=== PATIENT | female | born 1940 | race Caucasian/White ===

== ENCOUNTER 2017-07-07 09:45 | Outpatient (RCR) | payer OTHER, SELFPAY ==
--- NOTE | 2017-06-10 10:36 | PT.OTN ---
Transition note: On June 09, 2017 our therapy services consisting of Speech, Occupational, and Physical Therapy transitioned from the [employer] electronic documentation system to a new [employer] electronic documentation system.?? All documentation prior to June 09 can be found under [employer] saved data. From June 09 forward all medical record documentation will be in [facility] 6.1.
--- NOTE | 2017-06-10 13:49 | PT.OIE ---
Past Surgical History History of laparoscopic LAP-BAND removal, gastric sleeve procedure done for weight loss, hiatal hernia repair 12/12/13, abdominal plasty 2004, h/o ovarian cyst, uterine fibroidectomy, hx of bowel obstruction with partial bowel removal Status post tubal ligation, Physical Therapy Initial Evaluation PT-OP-A Visit Information Start: 06/10/17 12:00 Freq: Status: Active Protocol: Activity Type Activity Date Activity User E-Sign Co-Sign Detail Recorded Client Recorded Date Recorded By Document 06/10/17 10:19 [facility] [email or web address] 06/10/17 13:48 [facility] 06/10/17 10:19 Out-Patient Physical Therapy Visit Information [Evaluation Information] -Evaluation Date 06/10/17 PT-OP-B Current Condition Start: 06/10/17 12:00 Freq: Status: Active Protocol: Activity Type Activity Date Activity User E-Sign Co-Sign Detail Recorded Client Recorded Date Recorded By Document 06/10/17 10:19 [facility] [email or web address] 06/10/17 13:48 [facility] 06/10/17 10:19 Current Condition [History of Current Condition] -Onset Date symptoms of pelvic pressure have worsened over time -Current Complaints c/o pressure on the bladder that mimics a UTI,pelvic organ prolapse -History of Current Condition THe patient began complaining of the feeling of frequent UTI's and pressure on her bladder. She saw Dr. Valenzuela and was started on estrogen therapy as well as educated on how constipation can contribulte to straining. She began taking Mirilax. This along with the estrogen have helped greatly. She is no longer having to strain with a bowel movement. Edna has a history of 3 vaginal deliveries, hx of a bowel obstruction sometime in the with partial bowel removal, hx of lab band surgery and removal, sleeve surgery 3 years ago. H /p uterine fibroidectomy and ovarian cysts. [Treatment Goals] -Patient/Caregiver Goals The patients goals include decreasing pelvic pressure , especially the pressure on her bladder and improving pelvic floor strength [Prior Functional Status] -Baseline Function- ADL's Independent -Baseline Function- Mobility Independent [Current Functional Impairments ( Reported)] -Functional Limitations- Other self care time is increased for bowel movements and Edna notes that her bowel movements are difficulty to control now with the miralax especially in the am PT-OP-C Subjective Start: 06/10/17 12:00 Freq: Status: Active Protocol: Activity Type Activity Date Activity User E-Sign Co-Sign Detail Recorded Client Recorded Date Recorded By Document 06/10/17 10:19 [facility] [email or web address] 06/10/17 13:48 [facility] 06/10/17 10:19 OP-PT Subjective [Patient Comments] -Patient Comments The patient is referred to PT with chief complaint of pelvic pressure due to pelvic organ prolapse. Edna reports her symptoms have improved with the estrogen and Miralax although now she will have loose stool that is difficult to control at times. She is working with her doesage to figure this out . PT-OP-Q Treatments Start: 06/10/17 12:00 Freq: Status: Active Protocol: Activity Type Activity Date Activity User E-Sign Co-Sign Detail Recorded Client Recorded Date Recorded By Document 06/10/17 10:19 [facility] [email or web address] 06/10/17 13:48 [facility] 06/10/17 10:19 Neuro Re-Education Treatment [Movement Re-Education] -Movement Re-education Activities EMG biofeedback with neuro re- education on facilitating all portions of the pelvic floor. Average contraction is 6.9 uv with max of 13.0 uv PT-OP-T Assessment and Plan Start: 06/10/17 12:00 Freq: Status: Active Protocol: Activity Type Activity Date Activity User E-Sign Co-Sign Detail Recorded Client Recorded Date Recorded By Document 06/10/17 10:19 [facility] [email or web address] 06/10/17 13:48 [facility] 06/10/17 10:19 Physical Therapy Assessment [Rehab Potential] -Rehabilitation Potential Excellent [Evaluation Complexity] -Number of Personal Factors/ 1-2 Comorbidities -Number of Body Systems Impaired 1-2 -Clinical Presentation at Evaluation Stable [Impairments] -Impairments Soft Tissue Mobility Strength Tone [Goals] Four -Impairment The patient lacks a home exercise program for her pelvic floor -Blueprint Developer Goal (LTG) The patient has been given a home exercise program and is able to correctly perform her home exercises -LTG Duration 6 Three -Impairment Complaints of pelvic heavyness and pressure mimicing a bladder infection -Blueprint Developer Goal (LTG) With pelvic floor strengthening Edna reports decreased complaints of pelvic pressure and heavyness -LTG Duration 8 weeks Two -Impairment decreased endurance of the pelvic floor -Short Term Goal (STG) Edna is able to sustain a pelvic floor contraction for 10 seconds in supine -STG Duration 5 weeks -Detention Goal (LTG) Edna is able to sustain a pelvic floor contraction for 10 seconds in standing -LTG Duration 8 weeks One -Impairment decreased strength of the levator ani -Short Term Goal (STG) Improve all parts of the Levator ani strength to 4/5 or better for improved support of the pelvic organs -STG Duration 6 weeks -Blueprint Developer Goal (LTG) Edna is able to sustain a pelvic floor contraction in standing and is able to properly recruit her pelvic floor prior to lifting a item off the floor -LTG Duration 8 weeks [Assessment Summary] -Assessment Edna presents to physical therapy with signs and symptoms of pelvic floor relaxation. She reports doing much better already with the estrogen therapy and using the miralax has helped decrese constipation. With pelvic floor examination Edna is able to facilitate all parts of the levator ani . She lacks endurance of the pelvic floor. Her left side and anterior pelvic floor are the weakest and treatment will focus on improved recruitment in these areas. Further hip strength testing still needs to be done and will be assessed in the next visit. Edna tolerated today 's treatment well and was given a home program to begin working on pelvic floor strengthening. Physical Therapy Plan [Frequency and Duration] -Frequency of Treatment 1x/Week -Duration of Treatment 8 weeks -Plan of Care Start Date 06/10/17 -Plan of Care End Date 08/05/17 [Therapeutic Interventions] -Therapeutic Interventions Home Exercise Program Manual Therapy Neuromuscular Re-education Patient/ Caregiver Education Self-Care/Home Management Therapeutic Exercises -Modalities Biofeedback Provider Signature Date
--- NOTE | 2017-06-16 11:42 | PT.OTN ---
Physical Therapy Treatment Note PT-OP-A Visit Information Start: 06/10/17 12:00 Freq: Status: Active Protocol: Activity Type Activity Date Activity User E-Sign Co-Sign Detail Recorded Client Recorded Date Recorded By Document 06/16/17 09:55 [facility] [email or web address] 06/16/17 11:40 [facility] 06/16/17 09:55 Out-Patient Physical Therapy Visit Information [Visit Information] -Visit Type Treatment Note -Visit Start Time 09:50 -Visit Stop Time 10:30 -Total Visit Minutes 40 -Visit Number 2 -Number of LAUNDRY OPERATOR WASH ROOM Visits 0 PT-OP-B Current Condition Start: 06/10/17 12:00 Freq: Status: Active Protocol: Activity Type Activity Date Activity User E-Sign Co-Sign Detail Recorded Client Recorded Date Recorded By Document 06/10/17 10:19 [facility] [email or web address] 06/10/17 13:48 [facility] 06/10/17 10:19 Current Condition [History of Current Condition] -Onset Date symptoms of pelvic pressure have worsened over time -Current Complaints c/o pressure on the bladder that mimics a UTI,pelvic organ prolapse -History of Current Condition THe patient began complaining of the feeling of frequent UTI's and pressure on her bladder. She saw Dr. Valenzuela and was started on estrogen therapy as well as educated on how constipation can contribulte to straining. She began taking Mirilax. This along with the estrogen have helped greatly. She is no longer having to strain with a bowel movement. Edna has a history of 3 vaginal deliveries, hx of a bowel obstruction sometime in the with partial bowel removal, hx of lab band surgery and removal, sleeve surgery 3 years ago. H /p uterine fibroidectomy and ovarian cysts. [Treatment Goals] -Patient/Caregiver Goals The patients goals include decreasing pelvic pressure , especially the pressure on her bladder and improving pelvic floor strength [Prior Functional Status] -Baseline Function- ADL's Independent -Baseline Function- Mobility Independent [Current Functional Impairments ( Reported)] -Functional Limitations- Other self care time is increased for bowel movements and Edna notes that her bowel movements are difficulty to control now with the miralax especially in the am PT-OP-C Subjective Start: 06/10/17 12:00 Freq: Status: Active Protocol: Activity Type Activity Date Activity User E-Sign Co-Sign Detail Recorded Client Recorded Date Recorded By Document 06/16/17 09:55 [facility] [email or web address] 06/16/17 11:40 [facility] 06/16/17 09:55 OP-PT Subjective [Patient Comments] -Patient Comments Edna reports she has been working on her exercises and feels she can feel the left side wall of her pelvic floor better now PT-OP-I Pelvic Floor Start: 06/10/17 12:00 Freq: Status: Active Protocol: Activity Type Activity Date Activity User E-Sign Co-Sign Detail Recorded Client Recorded Date Recorded By Document 06/16/17 09:55 [facility] [email or web address] 06/16/17 11:40 [facility] 06/16/17 09:55 Pelvic Floor Assessment [SEMG (uV)] -Baseline 1 -Quick Contraction 10 -10 Second Contraction 7 -Recruitment Pattern Fair -Relaxation Good -Holding Fair -Stability of Hold Fair -SEMG Stability of Rest Good [Comments] -Pelvic Floor Comments improved endurance holds today with EMG biofeedback PT-OP-Q Treatments Start: 06/10/17 12:00 Freq: Status: Active Protocol: Activity Type Activity Date Activity User E-Sign Co-Sign Detail Recorded Client Recorded Date Recorded By Document 06/16/17 09:55 [facility] [email or web address] 06/16/17 11:40 [facility] 06/16/17 09:55 Therapeutic Exercises [Supine Exercises] 1 -Supine Exercise Name quick pelvic floor contraction -Side bilateral -Reps/Minutes work on 10 reps of 1-2 second hold time [Sidelying Exercises] 1 -Sidelying Exercise Name clam shells -Reps/Minutes 3 sets of 10 reps Neuro Re-Education Treatment [Other Activities] 1 -Details EMG biofeedback with pelvic floor neuro re- education -Reps/Duration gave HEP of 10 second hold time and 10 second relaxation -Comments working on awareness of the pelvic floor and facilitating all parts of the levator ani , emphasis on endurance of the pelvic floor Self-Care/Home Management Treatment [Education] -Patient Education Home Exercise Program -Other Education education to avoid straining and bearing down as well as tilting the pelvis when she is feeling downward pressure from the prolapse [Activities] -Self-Care/Home Management Activities toileting strategy for fully emptying the bladder, splinting the perineum with bowel movement PT-OP-T Assessment and Plan Start: 06/10/17 12:00 Freq: Status: Active Protocol: Activity Type Activity Date Activity User E-Sign Co-Sign Detail Recorded Client Recorded Date Recorded By Document 06/16/17 09:55 [facility] [email or web address] 06/16/17 11:40 [facility] 06/16/17 09:55 Physical Therapy Assessment [Rehab Potential] -Rehabilitation Potential Excellent [Impairments] -Impairments Soft Tissue Mobility Strength Tone [Progress Towards Goals] -Progress Towards Goals Progressing Toward Goals -Progress Comments improved endurance of the pelvic floor today with EMG biofeedback training [Assessment Summary] -Assessment Edna has worked this week on her exercises, she is showing a bit more recruitment of the pelvic floor as well as improved endurance of her hold time. I did add in lateral hip stabilization exercises today for her. With hip strength testing she is 4+/5 for hip abduction and hip ER Physical Therapy Plan [Frequency and Duration] -Frequency of Treatment 1x/Week [Therapeutic Interventions] -Therapeutic Interventions Home Exercise Program Manual Therapy Neuromuscular Re-education Patient/ Caregiver Education Self-Care/Home Management Therapeutic Exercises -Modalities Biofeedback [Next Visit Focus/Plan] -Next Visit Plan continue working on improved endurance of the pelvic floor and begin adding in transverse abdominal stabilization exercises
--- NOTE | 2017-06-23 17:24 | PT.OTN ---
Physical Therapy Treatment Note PT-OP-A Visit Information Start: 06/10/17 12:00 Freq: Status: Active Protocol: Document 06/23/17 17:15 [facility] (Rec: 06/23/17 17:24 [facility] [email or web address]) Out-Patient Physical Therapy Visit Information Visit Information Visit Type Treatment Note Visit Start Time 09:45 Visit Stop Time 10:30 Total Visit Minutes 40 Visit Number 3 Number of CUSTOMS BROKERAGE AGENT Visits 0 PT-OP-B Current Condition Start: 06/10/17 12:00 Freq: Status: Active Protocol: Document 06/10/17 10:19 [facility] (Rec: 06/10/17 13:48 [facility] [email or web address]) Current Condition History of Current Condition Onset Date symptoms of pelvic pressure have worsened over time Current Complaints c/o pressure on the bladder that mimics a UTI,pelvic organ prolapse History of Current Condition THe patient began complaining of the feeling of frequent UTI 's and pressure on her bladder . She saw Dr. Valenzuela and was started on estrogen therapy as well as educated on how constipation can contribulte to straining. She began taking Mirilax. This along with the estrogen have helped greatly. She is no longer having to strain with a bowel movement. Edna has a history of 3 vaginal deliveries, hx of a bowel obstruction sometime in the with partial bowel removal, hx of lab band surgery and removal, sleeve surgery 3 years ago. H/p uterine fibroidectomy and ovarian cysts. Treatment Goals Patient/Caregiver Goals The patients goals include decreasing pelvic pressure, especially the pressure on her bladder and improving pelvic floor strength Prior Functional Status Baseline Function- ADL's Independent Baseline Function- Mobility Independent Current Functional Impairments (Reported) Functional Limitations- Other self care time is increased for bowel movements and Edna notes that her bowel movements are difficulty to control now with the miralax especially in the am PT-OP-C Subjective Start: 06/10/17 12:00 Freq: Status: Active Protocol: Document 06/23/17 17:15 [facility] (Rec: 06/23/17 17:24 [facility] [email or web address]) OP-PT Subjective Patient Comments Patient Comments overall there is improvement and no complaints of pressure like she was having that is like a UTI PT-OP-I Pelvic Floor Start: 06/10/17 12:00 Freq: Status: Active Protocol: Document 06/23/17 17:15 [facility] (Rec: 06/23/17 17:24 [facility] [email or web address]) Pelvic Floor Assessment SEMG (uV) Baseline 1 10 Second Contraction 10 PT-OP-Q Treatments Start: 06/10/17 12:00 Freq: Status: Active Protocol: Document 06/23/17 17:15 [facility] (Rec: 06/23/17 17:24 [facility] [email or web address]) Therapeutic Exercises Supine Exercises 2 Supine Exercise Name templates for eccentric control and coordination Reps/Minutes 5 minutes 1 Supine Exercise Name quick pelvic floor contraction Side bilateral Reps/Minutes work on 10 reps of 1-2 second hold time Sidelying Exercises 1 Sidelying Exercise Name clam shells Reps/Minutes 3 sets of 10 reps Standing Exercises 1 Standing Exercise Name standing pelvic floor exercise and sit to stand with pelvic floor activiati Reps/Minutes 2 sets of 10 reps Neuro Re-Education Treatment Other Activities 1 Details EMG biofeedback with pelvic floor neuro re-education Reps/Duration gave HEP of 10 second hold time and 10 second relaxation Comments working on awareness of the pelvic floor and facilitating all parts of the levator ani, emphasis on endurance of the pelvic floor PT-OP-T Assessment and Plan Start: 06/10/17 12:00 Freq: Status: Active Protocol: Document 06/23/17 17:15 [facility] (Rec: 06/23/17 17:24 [facility] [email or web address]) Physical Therapy Assessment Assessment Summary Assessment There is improvement today and EMG biofeedback increased average work to 9./0 uv and max of 14.8 us. She was 6.59 average when we started PT on 06/10/17. Also began standing pelvic floor contractions today Physical Therapy Plan Frequency and Duration Frequency of Treatment 1x/Week Duration of Treatment 8 weeks Plan of Care Start Date 06/10/17 Plan of Care End Date 08/05/17 Next Visit Focus/Plan Next Visit Plan standing pelvic floor contractions and sit-stand
--- NOTE | 2017-07-07 11:34 | PT.OTN ---
Current Diagnoses Other female genital prolapse (07/07/17) Physical Therapy Treatment Note PT-OP-A Visit Information Start: 06/10/17 12:00 Freq: Status: Active Protocol: Document 07/07/17 11:24 [facility] (Rec: 07/07/17 11:34 [facility] [email or web address]) Out-Patient Physical Therapy Visit Information Visit Information Visit Type Treatment Note Visit Start Time 09:45 Visit Stop Time 10:30 Total Visit Minutes 45 Visit Number 4 Number of KITCHEN FOOD ASSEMBLER Visits 0 Evaluation Information Evaluation Date 06/10/17 PT-OP-B Current Condition Start: 06/10/17 12:00 Freq: Status: Active Protocol: Document 06/10/17 10:19 [facility] (Rec: 06/10/17 13:48 [facility] [email or web address]) Current Condition History of Current Condition Onset Date symptoms of pelvic pressure have worsened over time Current Complaints c/o pressure on the bladder that mimics a UTI,pelvic organ prolapse History of Current Condition THe patient began complaining of the feeling of frequent UTI 's and pressure on her bladder . She saw Dr. Valenzuela and was started on estrogen therapy as well as educated on how constipation can contribulte to straining. She began taking Mirilax. This along with the estrogen have helped greatly. She is no longer having to strain with a bowel movement. Edna has a history of 3 vaginal deliveries, hx of a bowel obstruction sometime in the with partial bowel removal, hx of lab band surgery and removal, sleeve surgery 3 years ago. H/p uterine fibroidectomy and ovarian cysts. Treatment Goals Patient/Caregiver Goals The patients goals include decreasing pelvic pressure, especially the pressure on her bladder and improving pelvic floor strength Prior Functional Status Baseline Function- ADL's Independent Baseline Function- Mobility Independent Current Functional Impairments (Reported) Functional Limitations- Other self care time is increased for bowel movements and Edna notes that her bowel movements are difficulty to control now with the miralax especially in the am PT-OP-C Subjective Start: 06/10/17 12:00 Freq: Status: Active Protocol: Document 07/07/17 11:24 [facility] (Rec: 07/07/17 11:34 [facility] [email or web address]) OP-PT Subjective Patient Comments Patient Comments Edna reports she has been doing well with no symptoms of UTI or pelvic pressure Patient Reported Progress Improving PT-OP-I Pelvic Floor Start: 06/10/17 12:00 Freq: Status: Active Protocol: Document 07/07/17 11:24 [facility] (Rec: 07/07/17 11:34 [facility] [email or web address]) Pelvic Floor Assessment Pelvic Clock Pelvic Clock Other improved strength of the pelvic floor today with exam to 3+/5 for all levator ani musculature SEMG (uV) Baseline 0 Quick Contraction 12.5 10 Second Contraction 12.1 Recruitment Pattern Good Relaxation Good Holding Good Stability of Hold Good SEMG Stability of Rest Good Comments Pelvic Floor Comments improved max contraction to 22 .0 uv ( was 13.0 uv) PT-OP-Q Treatments Start: 06/10/17 12:00 Freq: Status: Active Protocol: Document 07/07/17 11:24 [facility] (Rec: 07/07/17 11:34 [facility] [email or web address]) Therapeutic Exercises Supine Exercises 2 Supine Exercise Name templates for eccentric control and coordination Reps/Minutes 5 minutes 1 Supine Exercise Name quick pelvic floor contraction Side bilateral Reps/Minutes work on 10 reps of 1-2 second hold time Sidelying Exercises 1 Sidelying Exercise Name clam shells Reps/Minutes 3 sets of 10 reps Standing Exercises 2 Standing Exercise Name standing squats with pelvic floor activation and mini plies Reps/Minutes 2 sets of 10 reps each 1 Standing Exercise Name standing pelvic floor exercise and sit to stand with pelvic floor activiati Reps/Minutes 2 sets of 10 reps Neuro Re-Education Treatment Other Activities 1 Details EMG biofeedback with pelvic floor neuro re-education Reps/Duration gave HEP of 10 second hold time and 10 second relaxation Comments working on awareness of the pelvic floor and facilitating all parts of the levator ani, emphasis on endurance of the pelvic floor PT-OP-T Assessment and Plan Start: 06/10/17 12:00 Freq: Status: Active Protocol: Document 07/07/17 11:24 [facility] (Rec: 07/07/17 11:34 [facility] [email or web address]) Physical Therapy Assessment Assessment Summary Assessment Great increase in pelvic floor activation to max of 22.0 uv. No symptoms of pelvic heavyness. Edna is able to tolerate standing pelvic floor activation. SHe will work on her own for the next 4 weeks and then recheck back in Physical Therapy Plan Frequency and Duration Frequency of Treatment recheck in one month Duration of Treatment 8 weeks Plan of Care Start Date 06/10/17 Plan of Care End Date 08/05/17 Therapeutic Interventions Therapeutic Interventions Home Exercise Program Manual Therapy Neuromuscular Re-education Patient/Caregiver Education Self-Care/Home Management Therapeutic Exercises Next Visit Focus/Plan Next Visit Plan recheck pelvic floor and review HEP, progress standing exercises Please Sign and Return: I have reviewed this Plan of Care and certify that the skilled therapy services above are required to meet the patient???s needs. Physician Signature Date Printed Name and Credentials Clinical Instructor Signature Printed Name and Credentials
--- NOTE | 2017-09-01 13:33 | PT.OPDS ---
Current Diagnoses Other female genital prolapse (07/07/17) Provider Visit Care Team Role Provider Type Tony Garcia MD Family Provider Physician Primary Care Provider Specialty: Internal Medicine Address: [address] [place] [address], [id number] Email: Elsy Valenzuela MD Attending Provider Physician Specialty: PROFESSIONAL SYSTEM ADMINISTRATOR Address: [address] [place] [address], [id number] Email: [email or web address] Visit Number Visit Number 4 Discharge Summary PT-OP-B Current Condition Start: 06/10/17 12:00 Freq: Status: Active Protocol: Document 06/10/17 10:19 [facility] (Rec: 06/10/17 13:48 [facility] [id number]) Current Condition History of Current Condition Onset Date symptoms of pelvic pressure have worsened over time Current Complaints c/o pressure on the bladder that mimics a UTI,pelvic organ prolapse History of Current Condition THe patient began complaining of the feeling of frequent UTI 's and pressure on her bladder . She saw Dr. Valenzuela and was started on estrogen therapy as well as educated on how constipation can contribulte to straining. She began taking Mirilax. This along with the estrogen have helped greatly. She is no longer having to strain with a bowel movement. Edna has a history of 3 vaginal deliveries, hx of a bowel obstruction sometime in the with partial bowel removal, hx of lab band surgery and removal, sleeve surgery 3 years ago. H/p uterine fibroidectomy and ovarian cysts. Treatment Goals Patient/Caregiver Goals The patients goals include decreasing pelvic pressure, especially the pressure on her bladder and improving pelvic floor strength Prior Functional Status Baseline Function- ADL's Independent Baseline Function- Mobility Independent Current Functional Impairments (Reported) Functional Limitations- Other self care time is increased for bowel movements and Edna notes that her bowel movements are difficulty to control now with the miralax especially in the am PT-OP-C Subjective Start: 06/10/17 12:00 Freq: Status: Active Protocol: Document 07/07/17 11:24 [facility] (Rec: 07/07/17 11:34 [facility] [email or web address]) OP-PT Subjective Patient Comments Patient Comments Edna reports she has been doing well with no symptoms of UTI or pelvic pressure Patient Reported Progress Improving PT-OP-I Pelvic Floor Start: 06/10/17 12:00 Freq: Status: Active Protocol: Document 07/07/17 11:24 [facility] (Rec: 07/07/17 11:34 [facility] [id number]) Pelvic Floor Assessment Pelvic Clock Pelvic Clock Other improved strength of the pelvic floor today with exam to 3+/5 for all levator ani musculature SEMG (uV) Baseline 0 Quick Contraction 12.5 10 Second Contraction 12.1 Recruitment Pattern Good Relaxation Good Holding Good Stability of Hold Good SEMG Stability of Rest Good Comments Pelvic Floor Comments improved max contraction to 22 .0 uv ( was 13.0 uv) PT-OP-T Assessment and Plan Start: 06/10/17 12:00 Freq: Status: Active Protocol: Document 09/01/17 13:32 [facility] (Rec: 09/01/17 13:33 [facility] [email or web address]) Physical Therapy Assessment Progress Towards Goals Progress Towards Goals Goals Met Assessment Summary Assessment Great increase in pelvic floor activation to max of 22.0 uv. No symptoms of pelvic heavyness. Edna is able to tolerate standing pelvic floor activation. SHe will be discharged from Physical therapy at this time Physical Therapy Plan Discharge Physical Therapy Discharge Reasons Goals Met
== END 2017-07-07 10:09 ==
LOC: PHYS 09:45
PROVIDERS: Family Provider Internal Medicine; PCP Internal Medicine; Visit Provider Obstetrics & Gynecology
DX: N81.89 Other female genital prolapse (principal)
CPT/HCPCS: 97110; 97112; 97161; 97535

== ENCOUNTER → 2017-08-28 15:35 | Outpatient (CLI) | payer OTHER, SELFPAY ==
--- NOTE | 2017-08-28 | DI.RAD.S_ITS ---
PROCEDURE: XR HAND RT MIN 3V INDICATIONS: PAIN IN RIGHT HAND TECHNIQUE: 3 views of the hand(s) acquired. COMPARISON: [facility], , HAND 3V RIGHT, 12/09/2016, 12:28. FINDINGS: Bones: No fractures or dislocations. Carpal bones are normally aligned. No suspicious bony lesions. Faint chondrocalcinosis projects in the ulnocarpal compartment. There our small lucencies projecting in the lunate and triquetrum which appears unchanged since 12/09/16. Marginal lucency projecting at the radial aspect of the base of proximal phalanx of the middle finger is also noted and new or progressed since the prior study. Marginal lucencies projecting at the DIP joints of the middle and ring finger are unchanged. Soft tissues: No suspicious soft tissue calcifications. IMPRESSION: Interval progression of marginal lucency at the base of the proximal phalanx of the middle finger raising possibility of erosion, progressed since 12/09/16. Please correlate clinically and with laboratory data. Additional small lucencies seen at the DIP joints of the middle and ring finger as well as at the proximal carpal row are grossly unchanged. Chondrocalcinosis of the right wrist. Dictated by: Neville Silva M.D. on 08/28/2017 at 17:02 Approved by: Neville Silva M.D. on 08/28/2017 at 17:05
== END ==
PROVIDERS: PCP Internal Medicine; Visit Provider Student in an Organized Health Care Education/Training Program
DX: M79.641 Pain in right hand (principal); M11.231 Other chondrocalcinosis, right wrist
CPT/HCPCS: 73120

== ENCOUNTER → 2017-09-01 08:44 | Outpatient (CLI) | payer OTHER, SELFPAY ==
[2017-09-01 09:54] LABS: Add Manual Diff / Slide Review NO; Basophils Percent Auto 1.9 % (0-2); Eosinophils Percent Auto 3.6 % (2-4); Hematocrit 34.2 % (36-46); Hemoglobin 11.5 g/dL (12.0-16.0); Lymphocytes Percent Auto 30.4 % (25-40); Mean Corpuscular HGB Conc 33.7 % (30-36); Mean Corpuscular Hemoglobin 30.9 PG (26-34); Mean Corpuscular Volume 91.6 fL (80-100); Neutrophils Absolute Auto 3700 /uL (3000-5900); Neutrophils Percent Auto 54.1 % (50-75); Platelet Count 319 X10^3/uL (150-400); Red Blood Cell Count 3.74 X10^6/uL (4.0-5.2); Red Cell Distribution Width 13.2 % (11.6-14.8); White Blood Cell Count 6.8 X10^3/uL (4.5-11.0)
[2017-09-01 10:02] LABS: Alanine Aminotransferase 18 IU/L (9-52); Albumin 4.1 g/dL (3.5-5.0); Albumin Globulin Ratio 1.7 (1.0-2.8); Alkaline Phosphatase 36 U/L (38-126); Aspartate Aminotransferase 16 IU/L (14-36); Bilirubin Total 0.5 mg/dL (0.2-1.3); Blood Urea Nitrogen 16 mg/dL (7-17); Calcium 9.2 mg/dL (8.4-10.2); Carbon Dioxide 31 mmol/L (22-32); Chloride 98 mmol/L (98-107); Estimated Glomerular Filt Rate > 60.0 mL/min (>60); Globulin 2.4 g/dL (1.7-4.1); Glucose 144 mg/dL (80-110); HEMOLYSIS < 15 (0-50); Potassium 4.3 mmol/L (3.4-5.1); Sodium 138 mmol/L (137-145); Total Protein 6.5 g/dL (6.3-8.2)
[2017-09-01 10:18] LABS: Erythrocyte Sedimentation Rate 10 MM/HR (0-20)
[2017-09-01 10:26] LABS: C-Reactive Protein Quant < 0.5 mg/dL (<1.0); Rheumatoid Factor < 8.6 IU/mL (<12.0)
[2017-09-02 19:37] LABS: ANA Pattern Homogeneous; ANA Screen, IFA Positive (Negative); ANA Titer 1:40 titer (<1:40)
[2017-09-03 12:03] LABS: CCP Antibody (IgG) < 16 Units (< 20)
== END ==
PROVIDERS: Internal Medicine Hematology & Oncology; Family Provider Internal Medicine; PCP Internal Medicine; Visit Provider Student in an Organized Health Care Education/Training Program
DX: M79.641 Pain in right hand (principal)
CPT/HCPCS: 36415; 80053; 83516; 85025; 85651; 86038; 86140; 86430

== ENCOUNTER → 2017-12-08 14:27 | Outpatient (CLI) | payer OTHER, SELFPAY ==
[2017-12-08 14:51] LABS: Add Manual Diff / Slide Review NO; Basophils Percent Auto 0.2 % (0-2); Eosinophils Percent Auto 3.6 % (2-4); Hematocrit 34.3 % (36-46); Hemoglobin 11.6 g/dL (12.0-16.0); Mean Corpuscular HGB Conc 33.7 % (30-36); Mean Corpuscular Hemoglobin 30.9 PG (26-34); Mean Corpuscular Volume 91.5 fL (80-100); Monocytes Percent Auto 8.8 % (3-14); Neutrophils Absolute Auto 4700 /uL (3000-5900); Neutrophils Percent Auto 59.4 % (50-75); Platelet Count 380 X10^3/uL (150-400); Red Blood Cell Count 3.74 X10^6/uL (4.0-5.2); Red Cell Distribution Width 13.6 % (11.6-14.8)
[2017-12-08 15:01] LABS: Alanine Aminotransferase 21 IU/L (9-52); Albumin Globulin Ratio 1.7 (1.0-2.8); Alkaline Phosphatase 37 U/L (38-126); Aspartate Aminotransferase 12 IU/L (14-36); BUN Creatinine Ratio 24.3 (6-22); Bilirubin Total 0.2 mg/dL (0.2-1.3); Blood Urea Nitrogen 17 mg/dL (7-17); Calcium 8.9 mg/dL (8.4-10.2); Carbon Dioxide 26 mmol/L (22-32); Chloride 105 mmol/L (98-107); Estimated Glomerular Filt Rate > 60.0 mL/min (>60); Globulin 2.4 g/dL (1.7-4.1); Glucose 117 mg/dL (80-110); HEMOLYSIS < 15 (0-50); Sodium 140 mmol/L (137-145); Total Protein 6.4 g/dL (6.3-8.2)
--- NOTE | 2017-12-08 16:07 | PC.NURSE ---
Labs stable when compared to previous ones. MD visit on 12/23
[2017-12-10 13:57] LABS: Immunoglobulin A 108 mg/dL (81-463); Immunoglobulin G, Quantitative 825 mg/dL (694-1618)
[2017-12-10 16:08] LABS: Free Kappa Light Chain 17.6 mg/L (3.3-19.4); Free Kappa/ Lambda Ratio 1.59 (0.26-1.65); Free Lambda 11.1 mg/L (5.7-26.3)
== END ==
PROVIDERS: Family Provider Internal Medicine; PCP Internal Medicine; Visit Provider Internal Medicine Hematology & Oncology
DX: D47.2 Monoclonal gammopathy (principal)
CPT/HCPCS: 36415; 80053; 82784; 83883; 85025

== ENCOUNTER 2018-01-18 04:05 | Inpatient (IN) | payer OTHER, SELFPAY ==
[2018-01-18] VITALS (9 sets, daily range): BP systolic 115–164; BP diastolic 61–81; PULSE 64–88; RESP 14–20; TEMP 36.7–37.1; O2SAT 96–100; BMI 22.4
--- NOTE | 2018-01-18 | DI.ECHO.S_ITS ---
[facility] +---------+ : : [address] : : : : [place], : : : : [place] [id number] : : : : Phone: [phone] [facility]-[id number] Echocardiogram Report + + :Name: KAMRAN TOM Study Date: 01/19/2018 Height: 63 in : :[facility] Exam Location: [facility] Weight: 127 lb : : Gender: Female BSA: 1.6 m2 : :: 1940 Age: 77 yrs BP: 151/81 mmHg: :Reason For Study: History of Takotsubo : :Ordering Physician: Tana : :Hospitalist Performed By: Alicia Page : :Referring: UNSPECIFIED : + + Interpretation Summary The patient was unable to participate in the exam. The left ventricle is normal in size. Proximal septal thickening is noted. Again noted is a small, apical muscular ventricular septal defect as seen on the prior echo. Color flow Doppler is consistent with a ventricular septal defect with left to right shunt flow. Evaluation of the degree of shunt is not technically possible based on this echo. Given normal LV size, a hemodynamically significant shunt is unlikely. There are no focal wall motion abnormalities. Diastolic parameters suggest a relaxation abnormality of the left ventricle, consistent with probable normal filling pressures. -Compared to the prior echo, no significant change is noted. Procedure: A two-dimensional transthoracic echocardiogram with color flow and Doppler was performed. The study quality was technically adequate. Comparison is made with the echocardiogram of 03/15/2014. The patient was in normal sinus rhythm during the exam. The patient had frequent PACs during the exam. Left Ventricle: The left ventricle is normal in size. Left ventricular wall thickness is mildly increased. The LVOT velocity is 1.4 m/s. Proximal septal thickening is noted. A ventricular septal defect is noted. Color flow Doppler is consistent with a ventricular septal defect with left to right shunt flow. The ejection fraction is estimated to be 65-70%. There are no focal wall motion abnormalities. Diastolic parameters suggest a relaxation abnormality of the left ventricle, consistent with probable normal filling pressures. Right Ventricle: The right ventricle is borderline dilated. The right ventricular systolic function is normal. Atria: Both atria are severely dilated. There is no Doppler evidence for an interatrial shunt. Mitral Valve: The mitral valve leaflets appear mildly thickened, but open well. There is mild to moderate mitral annular calcification. There is trace mitral regurgitation. Aortic Valve: The aortic valve is trileaflet. The aortic valve opens well. There is discrete nodular thickening of the left coronary cusp. No aortic regurgitation is present. Tricuspid Valve: The tricuspid valve is normal in structure and function. There is mild tricuspid regurgitation. The estimated RVSP based on TR is 23 mmHg. There is discrepancy between this measurement and RVSP based on VSD calculation. Thus, the RVSP by VSD calculation is not reported as the TR jet is adequate and reliable. Pulmonic Valve: The pulmonic valve is not well visualized. There is trace pulmonic regurgitation. Great Vessels: The aortic root is normal size. The ascending aorta is mildly enlarged. The pulmonary artery is not well visualized, but is probably normal size. The IVC is of normal diameter and collapses greater than 50% with a sniff. This suggests a low right atrial pressure of 3 mm Hg. Pericardium/ Pleura There is no pericardial effusion. There is no pleural effusion. MMode/2D Measurements & Calculations LVIDd: 4.2 cm AoV Openin.2 cm LVIDs: 2.2 cm LVOT diam: 2.2 cm IVSd: 0.96 cm Ao root diam: 3.6 cm LVPWd: 0.77 cm asc Aorta Diam: 3.5 cm LV zavala. diameter/BSA (cm/m^2): 2.7 LV sys. diameter/BSA (cm/m^2): 1.4 FS: 47.6 % EPSS: 0.10 cm LA A2 area: 24.1 cm2 RA long axis: 5.9 cm LA A4 area: 28.1 cm2 RA area: 23.3 cm2 LA length (vol): 6.5 cm RA vol: 78.0 ml LA vol: 88.2 ml RA : 48.9 ml/m2 LA vol index: 55.3 ml/m2 RVD1 (basal): 4.4 cm IVC diam: 1.4 cm RVD2 (mid): 3.9 cm TAPSE: 2.0 cm Doppler Measurements & Calculations Ao V2 max: 304.3 cm/sec LVOT Max Benjamin: 139.6 cm/sec Ao V2 mean: 257.4 cm/sec LV V1 max P.8 mmHg Ao V2 VTI: 175.1 cm LV V1 VTI: 30.3 cm Ao max P.8 mmHg Ao mean P.6 mmHg ANNA(I,D): 0.66 cm2 MV E max benjamin: 89.1 cm/sec ANNA(V,D): 1.7 cm2 MV A max benjamin: 110.2 cm/sec ANNA indexed to BSA (cm^2/m^2): 0.41 MV E/A: 0.81 sev ratio: 0.17 Med Peak E' Benjamin: 5.4 cm/sec E/E' med: 16.6 Lat Peak E' Benjamin: 6.7 cm/sec E/E' lat: 13.3 E/e' average: 14.9 MV dec time: 0.28 sec TR max benjamin: 226.9 cm/sec MV P1/2t: 81.4 msec TR max P.6 mmHg MVA(P1/2t): 2.7 cm2 PA V2 max: 92.5 cm/sec PA V2 mean: 65.6 cm/sec PA mean P.9 mmHg PA Accel Time: 0.14 sec Electronically signed by: Larry Edgar M.D. on Reading Physician:01/19/2018 08:16 PM
--- NOTE | 2018-01-18 04:34 | ED.ABDPAIN ---
HPI - Abdominal Pain General Chief Complaint: Abdominal Pain Stated Complaint: severe abdominal pain Time Seen by Provider: 01/18/18 04:34 Source: patient and family Mode of arrival: ambulatory Limitations: no limitations History of Present Illness HPI narrative: Patient complains of severe abdominal pain that has been going on for about the last several hours. She has also been nauseated and vomiting. Patient was feeling fine yesterday. She states that occasionally, she gets these bouts of pain, but her main concern is that her blood pressure is running high with all this pain, and she was told that with her previous bout of cardiomyopathy, her blood pressure should never get above a certain level. Patient is concerned that the blood pressure will be hard on her heart. Patient denies any fevers; no diarrhea or hematochezia. No constipation. She states she had a large bowel movement earlier today. Patient denies any chest pain or shortness of breath. She has not been ill with anything recently, and has not been exposed to any sick contacts. Patient states her pain right now is a 9/10. She states that vomiting makes it worse, and nothing makes it better. The pain is just a pain she cannot describe, she states. Related Data Home Medications Medication Instructions Recorded Confirmed Probiotic 1 cap PO 1-2XD #0 11/11/16 01/18/18 cholecalciferol (vitamin D3) 5,000 unit PO DAILY #0 11/11/16 01/18/18 ginkgo biloba 120 mg PO DAILY #0 11/11/16 01/18/18 vitamin E 1 cap PO DAILY #0 11/11/16 01/18/18 CoQ-10 200 mg PO DAILY 01/18/18 01/18/18 [employer] 1 tab PO DAILY 01/18/18 01/18/18 Stool Softener 1 cap PO DAILY PRN 01/18/18 01/18/18 ascorbic acid (vitamin C) 1,500 mg PO DAILY 01/18/18 01/18/18 biotin 5 mg PO DAILY 01/18/18 01/18/18 bisacodyl 5 mg PO BEDTIME 01/18/18 01/18/18 bupropion HCl 300 mg PO DAILY 01/18/18 01/18/18 cyanocobalamin (vitamin B-12) 5,000 mcg PO Q OTHER DAY 01/18/18 01/18/18 [Vitamin B-12] ipratropium bromide 2 spray INTRANASAL BID PRN 01/18/18 01/18/18 metoprolol succinate 12.5 mg PO BID 01/18/18 01/18/18 omeprazole magnesium [Prilosec OTC] 20 mg PO DAILY 01/18/18 01/18/18 temazepam 15 - 30 mg PO BEDTIME PRN 01/18/18 01/18/18 zoledronic [id number]-[id number]-[id number] 5 mg IV DIRECTED 01/18/18 01/18/18 [Reclast] Previous Rx's Medication Instructions Recorded polyethylene glycol 3350 [Miralax] 17 gram PO BID #850 gram 01/19/18 lorazepam 1 mg PO BEDTIME PRN #14 tab 01/22/18 sennosides [Senna-Extra] 17.2 mg PO BEDTIME #60 tab 01/22/18 Allergies Allergy/AdvReac Type Severity Reaction Status Date / Time Sulfa (Sulfonamide Allergy Intermediate HIVES Verified 01/18/18 07:19 Antibiotics) codeine Allergy Unknown Verified 01/18/18 07:19 lactose Allergy Unknown Verified 01/18/18 07:19 octreotide Allergy Unknown Verified 01/18/18 07:19 Review of Systems Review of Systems All systems reviewed & are unremarkable except as noted in HPI and below Constitutional Denies chills, Denies fever(s), Denies lethargy and Denies weakness Eyes Denies change in vision, Denies eye discharge, Denies irritation and Denies loss of vision ENT Ears, Nose, Mouth, and Throat: Denies change in voice, Denies neck pain and Denies sore throat Cardiovascular Denies chest pain, Denies irregular heart rhythm, Denies lightheadedness, Denies palpitations, Denies dyspnea, Denies dyspnea on exertion and Denies orthopnea Respiratory Denies cough, Denies dyspnea, Denies dyspnea on exertion and Denies wheezing Gastrointestinal Gastrointestinal: Reports abdominal pain, Denies change in bowel habits, Denies excessive flatus, Denies diarrhea, Reports nausea and Denies vomiting Genitourinary Denies hematuria, Denies flank pain, Denies urinary incontinence and Denies urinary urgency Musculoskeletal Denies neck pain Integumentary/Breasts Denies pruritus, Denies erythema, Denies rash and Denies wounds Neurologic Denies confusion, Denies loss of vision and Denies weakness Psychiatric Denies anxiety, Denies confusion, Denies depression, Denies homicidal ideation and Denies suicidal ideation Endocrine Denies palpitations Hematologic/Lymphatic Denies easy bruising Allergic/Immunologic Denies wheezing [facility] Medical History HTN (hypertension) (Acute) Takotsubo cardiomyopathy (Acute) Surgical History H/O hysterectomy for benign disease (Acute) History of cataract removal with insertion of prosthetic lens Status post tubal ligation Social History household members: spouse Smoking Status: Former smoker Exam Initial Vital Signs Initial Vital Signs: Vital Signs Temperature 98.1 F 01/18/18 04:15 Pulse Rate 72 01/18/18 04:15 Respiratory Rate 20 01/18/18 04:15 Blood Pressure 164/81 H 01/18/18 04:15 Pulse Oximetry 100 01/18/18 04:15 Const General: cooperative and well developed Nutritional Appearance: well nourished Orientation: alert, awake, oriented x3 and not confused Other: Patient appears generally uncomfortable. HENMT Head: normocephalic and atraumatic Ears: external ears normal and TM's normal bilaterally Nose: external nose normal and No nasal discharge Face and sinus: sinuses nontender, face symmetric, no sinus tenderness and No dry mucous membranes Mouth: oral mucosae normal and moist mucous membranes Teeth and gingiva: dentition normal Throat: tonsils normal and uvula midline Eyes General: appearance normal, both eyes and all related structures Eyelids: eyelids normal Conjunctivae: conjunctivae normal Sclera: sclerae normal Pupils: PERRL EOM: EOM intact bilaterally Neck Neck: normal visual inspection, trachea midline, No lymphadenopathy, No midline deformity and No JVD Lymphatic: No lymphedema Chest Chest: normal inspection of the chest Resp Effort & Inspection: normal respiratory effort, able to speak in complete sentences, no respiratory distress and no use of accessory muscles Auscultation: clear to auscultation bilaterally, no rales, no rhonchi and no wheezes Cardio Rate: regular rate Rhythm: regular rhythm Heart Sounds: no click, no gallops, no murmurs and no rubs Pulses: normal peripheral pulses GI Inspection: non-distended Palpation: soft, no hepatosplenomegaly, No guarding, No pulsatile mass and tender (Moderate, bilateral upper abdomen; mild, bilateral lower abdomen.) Auscultation: normal bowel sounds Back/Spine/Pelvis Back: No CVA tenderness Cervical Spine: cervical ROM normal and No pain with cervical ROM Thoracic/Lumbar Spine: thoracic and lumbar spine normal to inspection Skin General: no rashes or lesions noted, No jaundice and No petechiae Neuro General: alert, oriented x3, gait normal and no focal motor deficits Speech: speech normal Extrem General: full ROM, no clubbing, cyanosis or edema, no pedal edema and no calf tenderness Psych Appearance: well kempt Mental Status: mental status grossly normal Attitude: cooperative Thought Content: normal and suicidality Judgment: judgment good Course Course Narrative: The patient was treated symptomatically in the emergency department and worked up with labs and ultimately, CT scan of the abdomen and pelvis. She was found have a small bowel obstruction. I did order an NG tube, and the patient was kept NPO. I spoke with Dr. Whitley, as well as the on-call surgeon, and arrangements were made for the patient to be admitted to the hospital under hospitalist service. Patient and family were informed of the diagnosis. Orders Ordered: Discontinued Medications Bupropion HCl (Wellbutrin Xl) 300 mg PO DAILY [facility], [facility] Admin: 01/22/18 08:59 Dose: 300 mg Admin: 01/21/18 09:53 Dose: 300 mg Diphenhydramine HCl (Benadryl Elixer) 12.5 mg PO Q6HR PRN PRN Reason: NAUSEA OR ITCHING Docusate Sodium (Colace) 100 mg PO BID [facility] Last Admin: 01/22/18 09:02 Dose: Not Given Admin: 01/21/18 20:33 Dose: Not Given Admin: 01/21/18 09:54 Dose: 100 mg Admin: 01/20/18 20:32 Dose: 100 mg Heparin Sodium (Porcine) (Heparin) 5,000 unit SUBCUT BID [facility] Last Admin: 01/22/18 09:02 Dose: Not Given Admin: 01/21/18 20:33 Dose: Not Given Admin: 01/21/18 10:25 Dose: Not Given Admin: 01/20/18 20:32 Dose: Not Given Admin: 01/20/18 09:05 Dose: Not Given Admin: 01/19/18 21:00 Dose: Not Given Admin: 01/19/18 10:08 Dose: Not Given Admin: 01/18/18 19:58 Dose: Not Given Admin: 01/18/18 10:38 Dose: Hydralazine HCl (Apresoline) 10 mg IV Q6HR PRN PRN Reason: SBP>160 Hydromorphone HCl (Dilaudid) 1 mg IV NOW ONE Stop: 01/18/18 04:56 Last Admin: 01/18/18 05:08 Dose: 1 mg Hydromorphone HCl (Dilaudid) 0.5 mg IV NOW ONE Stop: 01/18/18 07:13 Last Admin: 01/18/18 07:21 Dose: 0.5 mg Piperacillin/Tazobactam/Dextrose (Zosyn) 3.375 gm in 50 mls @ 100 mls/hr IV NOW ONE Stop: 01/18/18 07:43 Last Infusion: 01/18/18 07:57 Dose: 0 mls/hr Admin: 01/18/18 07:28 Dose: 100 mls/hr Dextrose/Sodium Chloride (Dextrose 5%-0.9% Ns) 1,000 mls @ 100 mls/hr IV CONT [facility] Last Admin: 01/18/18 20:42 Dose: 100 mls/hr Infusion: 01/18/18 18:44 Dose: 100 mls/hr Admin: 01/18/18 08:44 Dose: 100 mls/hr Metronidazole (Flagyl) 500 mg in 100 mls @ 100 mls/hr IV Q8H JUNIOR Last Infusion: 01/20/18 07:06 Dose: 100 mls/hr Admin: 01/20/18 05:56 Dose: 100 mls/hr Infusion: 01/19/18 23:44 Dose: 100 mls/hr Infusion: 01/19/18 23:24 Dose: 100 mls/hr Admin: 01/19/18 22:44 Dose: 100 mls/hr Infusion: 01/19/18 15:00 Dose: 100 mls/hr Admin: 01/19/18 13:00 Dose: 100 mls/hr Infusion: 01/19/18 06:55 Dose: 0 mls/hr Admin: 01/19/18 05:40 Dose: 100 mls/hr Infusion: 01/18/18 23:00 Dose: 0 mls/hr Admin: 01/18/18 21:22 Dose: 100 mls/hr Infusion: 01/18/18 17:10 Dose: 0 mls/hr Admin: 01/18/18 14:41 Dose: 100 mls/hr Ciprofloxacin (Cipro) 400 mg in 200 mls @ 200 mls/hr IV Q12H [facility] Last Admin: 01/20/18 06:55 Dose: Not Given Admin: 01/19/18 21:14 Dose: Not Given Infusion: 01/19/18 07:55 Dose: 200 mls/hr Admin: 01/19/18 06:55 Dose: 200 mls/hr Infusion: 01/18/18 20:40 Dose: 0 mls/hr Admin: 01/18/18 18:37 Dose: 200 mls/hr Potassium Chloride/Sodium Chloride (Ns With Kcl 40 Meq) 1,000 mls @ 70 mls/hr IV CONT [facility] Last Admin: 01/20/18 12:01 Dose: 100 mls/hr Infusion: 01/20/18 12:01 Dose: 100 mls/hr Admin: 01/20/18 02:14 Dose: 100 mls/hr Infusion: 01/20/18 02:13 Dose: 100 mls/hr Admin: 01/19/18 10:05 Dose: 100 mls/hr Zoledronic Acid 4 mg/ Sodium (Chloride) 105 mls @ 315 mls/hr IV NOW ONE Stop: 01/20/18 12:42 Last Admin: 01/20/18 14:21 Dose: Lorazepam (Ativan) 1 mg IV NOW ONE Stop: 01/18/18 09:34 Last Admin: 01/18/18 10:33 Dose: 1 mg Lorazepam (Ativan) 0.5 mg IV Q6HR PRN PRN Reason: Anxiety Last Admin: 01/20/18 01:00 Dose: 0.5 mg Admin: 01/19/18 08:51 Dose: 0.5 mg Admin: 01/18/18 13:10 Dose: 0.5 mg Lorazepam (Ativan) 1 mg PO BEDTIME PRN PRN Reason: Sleep Last Admin: 01/21/18 20:33 Dose: 1 mg Lorazepam (Ativan) 0.5 mg IV Q6HR PRN PRN Reason: Anxiety Magnesium Hydroxide (Milk Of Magnesia) 30 ml PO DAILY [facility] Last Admin: 01/22/18 09:02 Dose: Not Given Admin: 01/21/18 10:26 Dose: Not Given Admin: 01/20/18 14:22 Dose: 30 ml Metoprolol Succinate (Toprol Xl) 12.5 mg PO BID [facility] Last Admin: 01/22/18 09:03 Dose: 12.5 mg Admin: 01/21/18 20:30 Dose: 12.5 mg Admin: 01/21/18 09:54 Dose: 12.5 mg Admin: 01/20/18 20:32 Dose: Not Given Metoprolol Tartrate (Lopressor) 5 mg IV Q6H PRN PRN Reason: SBP>180 AND/OR HR >110 Morphine Sulfate (Morphine) 2 mg IV Q4HR PRN PRN Reason: Pain, Moderate (4-6) Last Admin: 01/18/18 19:57 Dose: 2 mg Ondansetron HCl (Zofran) 4 mg IV NOW ONE Stop: 01/18/18 05:48 Last Admin: 01/18/18 05:50 Dose: 4 mg Ondansetron HCl (Zofran) 4 mg IV NOW ONE Stop: 01/18/18 07:28 Last Admin: 01/18/18 07:28 Dose: 4 mg Ondansetron HCl (Zofran) 4 mg IV Q6HR PRN PRN Reason: Nausea And Vomiting Last Admin: 01/18/18 19:57 Dose: 4 mg Ondansetron HCl (Zofran Odt) 4 mg PO Q4HR PRN PRN Reason: Nausea Pantoprazole Sodium (Protonix) 40 mg IV DAILY [facility] Last Admin: 01/22/18 09:02 Dose: Not Given Admin: 01/21/18 09:51 Dose: Not Given Admin: 01/20/18 12:01 Dose: 40 mg Admin: 01/19/18 10:08 Dose: 40 mg Admin: 01/18/18 13:10 Dose: 40 mg Potassium Chloride (Klor-Con M20) 40 meq PO NOW ONE Stop: 01/22/18 11:42 Sodium Biphosphate/Sodium Phosphate (Fleet Enema) 0 each MO NOW [facility] Stop: 01/20/18 13:46 Last Admin: 01/19/18 00:54 Dose: 1 each Admin: 01/18/18 21:23 Dose: 1 each Admin: 01/18/18 17:55 Dose: 1 each Temazepam (Resoril) 15 mg PO BEDTIME PRN PRN Reason: Sleep Last Admin: 01/20/18 21:57 Dose: 15 mg Vital Signs - 8 hr 01/18/18 04:15 01/18/18 04:53 Temperature 98.1 F Pulse Rate 72 71 Respiratory Rate 20 Blood Pressure 164/81 H Blood Pressure [Right Arm] 143/70 H Pulse Oximetry 100 99 MDM - Abdominal Pain Medical Records Attestation: I reviewed the patient's medical records. Lab Data Attestation: I reviewed the patient's lab results. Result diagrams: 01/22/18 05:53 01/22/18 05:53 Lab Results 01/18/18 01/18/18 01/18/18 Range/Units 04:30 04:30 04:30 WBC 12.8 H (4.5-11.0) X10^3/uL RBC 4.00 (4.0-5.2) X10^6/uL Hgb 12.1 (12.0-16.0) g/dL Hct 36.7 (36-46) % MCV 91.7 (80-100) fL MCH 30.3 (26-34) PG MCHC 33.0 (30-36) % RDW 13.5 (11.6-14.8) % Plt Count 350 (150-400) X10^3/uL Neut % (Auto) 68.7 (50-75) % Lymph % (Auto) 20.0 L (25-40) % Dickson % (Auto) 8.5 (3-14) % Eos % (Auto) 2.0 (2-4) % Baso % (Auto) 0.8 (0-2) % Neut # (Auto) 8800 H (7693-8187) /uL Sodium 140 (137-145) mmol/L Potassium 4.3 (3.4-5.1) mmol/L Chloride 102 (98-107) mmol/L Carbon Dioxide 28 (22-32) mmol/L BUN 17 (7-17) mg/dL Creatinine 0.80 (0.52-1.04) mg/dL Estimated GFR > 60.0 (>60) mL/min BUN/Creatinine Ratio 21.3 (6-22) Glucose 145 H (80-110) mg/dL Hemoglobin A1c 6.1 H (4.0-6.0) % Lactate (0.7-2.1) mmol/L Calcium 9.8 (8.4-10.2) mg/dL Phosphorus (2.8-4.1) mg/dL Magnesium (1.6-2.3) mg/dL Total Bilirubin 0.2 (0.2-1.3) mg/dL AST 15 (14-36) IU/L ALT 20 (9-52) IU/L Alkaline Phosphatase 54 (38-126) U/L Total Protein 7.2 (6.3-8.2) g/dL Albumin 4.4 (3.5-5.0) g/dL Globulin 2.8 (1.7-4.1) g/dL Albumin/Globulin Ratio 1.6 (1.0-2.8) Lipase 81 (23-300) U/L Urine Color Urine Appearance Urine pH (4.5-8.0) Ur Specific [place] (1.000-1.035) Urine Protein (Negative) Urine Glucose (UA) (Normal) g/dL Urine Ketones (NEGATIVE) Urine Occult Blood (Negative) Urine Nitrate (Negative) Urine Bilirubin (NEGATIVE) Urine Urobilinogen (0.2) E.U./dL Ur Leukocyte Esterase (NEGATIVE) Urine RBC (0-5/HPF) Urine WBC (0-5/HPF) Amorphous Sediment Urine Bacteria (None) Ur Culture Indicated? Micro UA Comment 01/18/18 01/18/18 01/18/18 Range/Units 07:40 07:40 10:12 WBC (4.5-11.0) X10^3/uL RBC (4.0-5.2) X10^6/uL Hgb (12.0-16.0) g/dL Hct (36-46) % MCV (80-100) fL MCH (26-34) PG MCHC (30-36) % RDW (11.6-14.8) % Plt Count (150-400) X10^3/uL Neut % (Auto) (50-75) % Lymph % (Auto) (25-40) % Dickson % (Auto) (3-14) % Eos % (Auto) (2-4) % Baso % (Auto) (0-2) % Neut # (Auto) (7117-3604) /uL Sodium (137-145) mmol/L Potassium (3.4-5.1) mmol/L Chloride (98-107) mmol/L Carbon Dioxide (22-32) mmol/L BUN (7-17) mg/dL Creatinine (0.52-1.04) mg/dL Estimated GFR (>60) mL/min BUN/Creatinine Ratio (6-22) Glucose (80-110) mg/dL Hemoglobin A1c (4.0-6.0) % Lactate 1.3 (0.7-2.1) mmol/L Calcium (8.4-10.2) mg/dL Phosphorus 3.6 (2.8-4.1) mg/dL Magnesium 2.0 (1.6-2.3) mg/dL Total Bilirubin (0.2-1.3) mg/dL AST (14-36) IU/L ALT (9-52) IU/L Alkaline Phosphatase (38-126) U/L Total Protein (6.3-8.2) g/dL Albumin (3.5-5.0) g/dL Globulin (1.7-4.1) g/dL Albumin/Globulin Ratio (1.0-2.8) Lipase (23-300) U/L Urine Color Yellow Urine Appearance Clear Urine pH 5.5 (4.5-8.0) Ur Specific [place] 1.010 (1.000-1.035) Urine Protein Negative (Negative) Urine Glucose (UA) Negative (Normal) g/dL Urine Ketones Negative (NEGATIVE) Urine Occult Blood 3+ H (Negative) Urine Nitrate Negative (Negative) Urine Bilirubin Negative (NEGATIVE) Urine Urobilinogen 0.2 (0.2) E.U./dL Ur Leukocyte Esterase Negative (NEGATIVE) Urine RBC 5-10/hpf H (0-5/HPF) Urine WBC None seen (0-5/HPF) Amorphous Sediment 1+ Urine Bacteria None seen (None) Ur Culture Indicated? Cult not indicated Micro UA Comment Not Reportable 01/19/18 01/19/18 01/20/18 Range/Units 05:42 05:42 05:50 WBC 7.0 7.1 (4.5-11.0) X10^3/uL RBC 3.35 L 3.63 L (4.0-5.2) X10^6/uL Hgb 10.4 L 11.3 L (12.0-16.0) g/dL Hct 30.5 L 32.9 L (36-46) % MCV 91.1 90.6 (80-100) fL MCH 31.0 31.0 (26-34) PG MCHC 34.1 34.2 (30-36) % RDW 13.4 13.1 (11.6-14.8) % Plt Count 281 312 (150-400) X10^3/uL Neut % (Auto) 65.4 46.4 L (50-75) % Lymph % (Auto) 20.1 L 39.2 (25-40) % Dickson % (Auto) 12.4 10.7 (3-14) % Eos % (Auto) 1.5 L 2.9 (2-4) % Baso % (Auto) 0.6 0.8 (0-2) % Neut # (Auto) 4600 3300 (6142-1655) /uL Sodium 142 (137-145) mmol/L Potassium 3.2 L (3.4-5.1) mmol/L Chloride 106 (98-107) mmol/L Carbon Dioxide 27 (22-32) mmol/L BUN 8 (7-17) mg/dL Creatinine 0.60 (0.52-1.04) mg/dL Estimated GFR > 60.0 (>60) mL/min BUN/Creatinine Ratio 13.3 (6-22) Glucose 167 H (80-110) mg/dL Hemoglobin A1c (4.0-6.0) % Lactate (0.7-2.1) mmol/L Calcium 8.3 L (8.4-10.2) mg/dL Phosphorus (2.8-4.1) mg/dL Magnesium (1.6-2.3) mg/dL Total Bilirubin 0.3 (0.2-1.3) mg/dL AST 11 L (14-36) IU/L ALT 20 (9-52) IU/L Alkaline Phosphatase 42 (38-126) U/L Total Protein 5.7 L (6.3-8.2) g/dL Albumin 3.3 L (3.5-5.0) g/dL Globulin 2.4 (1.7-4.1) g/dL Albumin/Globulin Ratio 1.4 (1.0-2.8) Lipase (23-300) U/L Urine Color Urine Appearance Urine pH (4.5-8.0) Ur Specific [place] (1.000-1.035) Urine Protein (Negative) Urine Glucose (UA) (Normal) g/dL Urine Ketones (NEGATIVE) Urine Occult Blood (Negative) Urine Nitrate (Negative) Urine Bilirubin (NEGATIVE) Urine Urobilinogen (0.2) E.U./dL Ur Leukocyte Esterase (NEGATIVE) Urine RBC (0-5/HPF) Urine WBC (0-5/HPF) Amorphous Sediment Urine Bacteria (None) Ur Culture Indicated? Micro UA Comment 01/20/18 01/21/18 01/21/18 Range/Units 05:50 06:00 06:00 WBC 5.9 (4.5-11.0) X10^3/uL RBC 3.58 L (4.0-5.2) X10^6/uL Hgb 11.1 L (12.0-16.0) g/dL Hct 32.0 L (36-46) % MCV 89.4 (80-100) fL MCH 31.0 (26-34) PG MCHC 34.6 (30-36) % RDW 13.0 (11.6-14.8) % Plt Count 320 (150-400) X10^3/uL Neut % (Auto) 43.3 L (50-75) % Lymph % (Auto) 40.7 H (25-40) % Dickson % (Auto) 10.8 (3-14) % Eos % (Auto) 4.2 H (2-4) % Baso % (Auto) 1.0 (0-2) % Neut # (Auto) 2600 L (6716-2575) /uL Sodium 143 141 (137-145) mmol/L Potassium 3.5 3.6 (3.4-5.1) mmol/L Chloride 106 102 (98-107) mmol/L Carbon Dioxide 27 29 (22-32) mmol/L BUN 4 L 6 L (7-17) mg/dL Creatinine 0.60 0.60 (0.52-1.04) mg/dL Estimated GFR > 60.0 > 60.0 (>60) mL/min BUN/Creatinine Ratio 6.7 10.0 (6-22) Glucose 100 81 (80-110) mg/dL Hemoglobin A1c (4.0-6.0) % Lactate (0.7-2.1) mmol/L Calcium 8.5 8.6 (8.4-10.2) mg/dL Phosphorus (2.8-4.1) mg/dL Magnesium (1.6-2.3) mg/dL Total Bilirubin 0.4 0.3 (0.2-1.3) mg/dL AST 12 L 13 L (14-36) IU/L ALT 22 18 (9-52) IU/L Alkaline Phosphatase 46 45 (38-126) U/L Total Protein 6.2 L 5.9 L (6.3-8.2) g/dL Albumin 3.6 3.5 (3.5-5.0) g/dL Globulin 2.6 2.4 (1.7-4.1) g/dL Albumin/Globulin Ratio 1.4 1.5 (1.0-2.8) Lipase (23-300) U/L Urine Color Urine Appearance Urine pH (4.5-8.0) Ur Specific [place] (1.000-1.035) Urine Protein (Negative) Urine Glucose (UA) (Normal) g/dL Urine Ketones (NEGATIVE) Urine Occult Blood (Negative) Urine Nitrate (Negative) Urine Bilirubin (NEGATIVE) Urine Urobilinogen (0.2) E.U./dL Ur Leukocyte Esterase (NEGATIVE) Urine RBC (0-5/HPF) Urine WBC (0-5/HPF) Amorphous Sediment Urine Bacteria (None) Ur Culture Indicated? Micro UA Comment 01/22/18 01/22/18 Range/Units 05:53 05:53 WBC 6.7 (4.5-11.0) X10^3/uL RBC 3.47 L (4.0-5.2) X10^6/uL Hgb 10.7 L (12.0-16.0) g/dL Hct 30.8 L (36-46) % MCV 88.8 (80-100) fL MCH 30.9 (26-34) PG MCHC 34.8 (30-36) % RDW 13.2 (11.6-14.8) % Plt Count 347 (150-400) X10^3/uL Neut % (Auto) 52.6 (50-75) % Lymph % (Auto) 29.3 (25-40) % Dickson % (Auto) 13.3 (3-14) % Eos % (Auto) 3.5 (2-4) % Baso % (Auto) 1.3 (0-2) % Neut # (Auto) 3600 (0683-8611) /uL Sodium 141 (137-145) mmol/L Potassium 3.2 L (3.4-5.1) mmol/L Chloride 102 (98-107) mmol/L Carbon Dioxide 29 (22-32) mmol/L BUN 13 (7-17) mg/dL Creatinine 0.70 (0.52-1.04) mg/dL Estimated GFR > 60.0 (>60) mL/min BUN/Creatinine Ratio 18.6 (6-22) Glucose 95 (80-110) mg/dL Hemoglobin A1c (4.0-6.0) % Lactate (0.7-2.1) mmol/L Calcium 9.0 (8.4-10.2) mg/dL Phosphorus (2.8-4.1) mg/dL Magnesium (1.6-2.3) mg/dL Total Bilirubin 0.3 (0.2-1.3) mg/dL AST 21 (14-36) IU/L ALT 23 (9-52) IU/L Alkaline Phosphatase 41 (38-126) U/L Total Protein 6.1 L (6.3-8.2) g/dL Albumin 3.6 (3.5-5.0) g/dL Globulin 2.5 (1.7-4.1) g/dL Albumin/Globulin Ratio 1.4 (1.0-2.8) Lipase (23-300) U/L Urine Color Urine Appearance Urine pH (4.5-8.0) Ur Specific [place] (1.000-1.035) Urine Protein (Negative) Urine Glucose (UA) (Normal) g/dL Urine Ketones (NEGATIVE) Urine Occult Blood (Negative) Urine Nitrate (Negative) Urine Bilirubin (NEGATIVE) Urine Urobilinogen (0.2) E.U./dL Ur Leukocyte Esterase (NEGATIVE) Urine RBC (0-5/HPF) Urine WBC (0-5/HPF) Amorphous Sediment Urine Bacteria (None) Ur Culture Indicated? Micro UA Comment Imaging Data CT scan - abdomen: Radiologist's impression: [address] [address] [address] Scan Report Signed Patient: Edna Condon MR#: [id number] : 1940 Acct:[id number] Age/Sex: 77 / F Date of Service: 01/18/18 Loc: 213-1 Accession Number: [id number] Procedure: CT abdomen pelvis w con Ordering Provider: Flores Taveras MD PROCEDURE: CT ABDOMEN PELVIS W CON INDICATIONS: abdominal pain TECHNIQUE: After the administration of oral and intravenous contrast, 5 mm thick sections acquired from the diaphragms to the symphysis. 5 mm thick coronal and sagittal reformats were performed. For radiation dose reduction, the following was used: automated exposure control, adjustment of mA and/or kV according to patient size. COMPARISON: None. FINDINGS: Image quality: Excellent. ABDOMEN: Lung bases: There is linear scarring in the left lower lobe. Heart size is normal. There is a moderate-sized hiatal hernia. Solid organs: A small hypodensity is demonstrated in the right hepatic lobe measuring approximately 0.6 cm which is too small to characterize but statistically likely represents a cyst. The gallbladder is distended without calcified gallstones or wall thickening. Biliary system is non-dilated. Pancreas enhances normally without peripancreatic fat stranding or fluid collections. There are a few punctate calcifications in the pancreatic tail suggesting sequela of chronic pancreatitis. No pancreatic duct dilatation. Spleen is normal in size and enhancement. There is thickening of the adrenal glands and both a small nodular component in the right adrenal measuring up to 1.1 cm. Kidneys demonstrate no hydronephrosis. Peritoneum and bowel: There are postsurgical changes demonstrated along the stomach. There is distention of the proximal small bowel, measuring up to approximately 3.9 cm in diameter with multiple air-fluid levels. There is a small bowel feces sign in the right lower quadrant leading to a transition point in the right hemipelvis centered on series 2 image 63. More distal loops of small bowel are nondistended. The findings are consistent with a small bowel obstruction. There is a small amount of interloop free fluid as well as small amount of free fluid in the pelvis, suggestive of a high-grade obstruction. The colon is normal in caliber and wall thickness. Colonic diverticulosis is present without acute diverticulitis. Nodes and vessels: No retroperitoneal or mesenteric adenopathy. Aorta and inferior vena cava are normal in caliber. Miscellaneous: No ventral hernias. PELVIS: Genitourinary: Bladder wall thickness is normal. There are multiple densely calcified fibroids within the uterus. Miscellaneous: No inguinal hernias or adenopathy. Bones: No suspicious bony lesions. No vertebral body compression fractures. IMPRESSION: 1. Findings consistent with a small bowel obstruction, likely high-grade given the presence of interloop and pelvic free fluid, with the transition point in the right hemipelvis as described. Findings are likely secondary to adhesions. Findings were discussed with Dr. Taveras on 01/18/18 at 6:59 AM by [facility] radiology services. 2. Colonic diverticulosis without acute diverticulitis. 3. Thickening of degenerative glands bilaterally with a small nodular component in the right adrenal measuring up to 1 cm. The finding is indeterminate and if indicated further evaluation may be obtained with an adrenal protocol MRI or CT. Dictated by: Basilio Linton M.D. on 01/18/2018 at 8:11 Approved by: Basilio Linton M.D. on 01/18/2018 at 8:23 Discharge Plan Departure Patient Disposition: Admitted As Inpatient Clinical Impression: SBO (small bowel obstruction) Discharge Date/Time: 01/18/18 08:07 Interventions: ED Discharge Assessment Last Done: 01/18/18 08:06 Admit Date/Time: 01/18/18 07:28 Admit Provider: Shelby Cornejo
--- NOTE | 2018-01-18 04:38 | PC.NURSE ---
while putting in standing orders for abdominal pain Dr. Taveras states that she will add any cardiac testing after she assesses the patient and to take them off the ED nurse standing orders.
[2018-01-18 04:45] LABS: Add Manual Diff / Slide Review NO; Basophils Percent Auto 0.8 % (0-2); Hematocrit 36.7 % (36-46); Hemoglobin 12.1 g/dL (12.0-16.0); Mean Corpuscular Hemoglobin 30.3 PG (26-34); Mean Corpuscular Volume 91.7 fL (80-100); Monocytes Percent Auto 8.5 % (3-14); Neutrophils Absolute Auto 8800 /uL (3000-5900); Neutrophils Percent Auto 68.7 % (50-75); Platelet Count 350 X10^3/uL (150-400); Red Cell Distribution Width 13.5 % (11.6-14.8); White Blood Cell Count 12.8 X10^3/uL (4.5-11.0)
[2018-01-18 04:50] LABS: Alanine Aminotransferase 20 IU/L (9-52); Albumin 4.4 g/dL (3.5-5.0); Albumin Globulin Ratio 1.6 (1.0-2.8); Alkaline Phosphatase 54 U/L (38-126); Aspartate Aminotransferase 15 IU/L (14-36); BUN Creatinine Ratio 21.3 (6-22); Bilirubin Total 0.2 mg/dL (0.2-1.3); Blood Urea Nitrogen 17 mg/dL (7-17); Calcium 9.8 mg/dL (8.4-10.2); Carbon Dioxide 28 mmol/L (22-32); Chloride 102 mmol/L (98-107); Estimated Glomerular Filt Rate > 60.0 mL/min (>60); Globulin 2.8 g/dL (1.7-4.1); Glucose 145 mg/dL (80-110); HEMOLYSIS < 15 (0-50); Lipase 81 U/L (23-300); Potassium 4.3 mmol/L (3.4-5.1); Sodium 140 mmol/L (137-145); Total Protein 7.2 g/dL (6.3-8.2)
[2018-01-18] MEDS: HYDROMORPHONE 1 MG INJ IV (05:08)
--- NOTE | 2018-01-18 05:48 | ED_ITS ---
HPI - Abdominal Pain General Chief Complaint: Abdominal Pain Stated Complaint: severe abdominal pain Time Seen by Provider: 01/18/18 04:34 Source: patient and family Mode of arrival: ambulatory Limitations: no limitations History of Present Illness HPI narrative: Patient complains of severe abdominal pain that has been going on for about the last several hours. She has also been nauseated and vomiting. Patient was feeling fine yesterday. She states that occasionally, she gets these bouts of pain, but her main concern is that her blood pressure is running high with all this pain, and she was told that with her previous bout of cardiomyopathy, her blood pressure should never get above a certain level. Patient is concerned that the blood pressure will be hard on her heart. Patient denies any fevers; no diarrhea or hematochezia. No constipation. She states she had a large bowel movement earlier today. Patient denies any chest pain or shortness of breath. She has not been ill with anything recently, and has not been exposed to any sick contacts. Patient states her pain right now is a 9/10. She states that vomiting makes it worse, and nothing makes it better. The pain is just a pain she cannot describe, she states. Related Data Home Medications Medication Instructions Recorded Confirmed Probiotic 1 cap PO 1-2XD #0 11/11/16 01/18/18 cholecalciferol (vitamin D3) 5,000 unit PO DAILY #0 11/11/16 01/18/18 ginkgo biloba 120 mg PO DAILY #0 11/11/16 01/18/18 vitamin E 1 cap PO DAILY #0 11/11/16 01/18/18 CoQ-10 200 mg PO DAILY 01/18/18 01/18/18 Paddle ([employer]) 1 tab PO DAILY 01/18/18 01/18/18 Stool Softener 1 cap PO DAILY PRN 01/18/18 01/18/18 ascorbic acid (vitamin C) 1,500 mg PO DAILY 01/18/18 01/18/18 biotin 5 mg PO DAILY 01/18/18 01/18/18 bisacodyl 5 mg PO BEDTIME 01/18/18 01/18/18 bupropion HCl 300 mg PO DAILY 01/18/18 01/18/18 cyanocobalamin (vitamin B-12) 5,000 mcg PO Q OTHER DAY 01/18/18 01/18/18 [Vitamin B-12] ipratropium bromide 2 spray INTRANASAL BID PRN 01/18/18 01/18/18 metoprolol succinate 12.5 mg PO BID 01/18/18 01/18/18 omeprazole magnesium [Prilosec OTC] 20 mg PO DAILY 01/18/18 01/18/18 temazepam 15 - 30 mg PO BEDTIME PRN 01/18/18 01/18/18 zoledronic evjy-[id number]-ghiyk 5 mg IV DIRECTED 01/18/18 01/18/18 [Reclast] Previous Rx's Medication Instructions Recorded polyethylene glycol 3350 [Miralax] 17 gram PO BID #850 gram 01/19/18 lorazepam 1 mg PO BEDTIME PRN #14 tab 01/22/18 sennosides [Senna-Extra] 17.2 mg PO BEDTIME #60 tab 01/22/18 Allergies Allergy/AdvReac Type Severity Reaction Status Date / Time Sulfa (Sulfonamide Allergy Intermediate HIVES Verified 01/18/18 07:19 Antibiotics) codeine Allergy Unknown Verified 01/18/18 07:19 lactose Allergy Unknown Verified 01/18/18 07:19 octreotide Allergy Unknown Verified 01/18/18 07:19 Review of Systems Review of Systems All systems reviewed & are unremarkable except as noted in HPI and below Constitutional Denies chills, Denies fever(s), Denies lethargy and Denies weakness Eyes Denies change in vision, Denies eye discharge, Denies irritation and Denies loss of vision ENT Ears, Nose, Mouth, and Throat: Denies change in voice, Denies neck pain and Denies sore throat Cardiovascular Denies chest pain, Denies irregular heart rhythm, Denies lightheadedness, Denies palpitations, Denies dyspnea, Denies dyspnea on exertion and Denies orthopnea Respiratory Denies cough, Denies dyspnea, Denies dyspnea on exertion and Denies wheezing Gastrointestinal Gastrointestinal: Reports abdominal pain, Denies change in bowel habits, Denies excessive flatus, Denies diarrhea, Reports nausea and Denies vomiting Genitourinary Denies hematuria, Denies flank pain, Denies urinary incontinence and Denies urinary urgency Musculoskeletal Denies neck pain Integumentary/Breasts Denies pruritus, Denies erythema, Denies rash and Denies wounds Neurologic Denies confusion, Denies loss of vision and Denies weakness Psychiatric Denies anxiety, Denies confusion, Denies depression, Denies homicidal ideation and Denies suicidal ideation Endocrine Denies palpitations Hematologic/Lymphatic Denies easy bruising Allergic/Immunologic Denies wheezing [facility] Medical History HTN (hypertension) (Acute) Takotsubo cardiomyopathy (Acute) Surgical History H/O hysterectomy for benign disease (Acute) History of cataract removal with insertion of prosthetic lens Status post tubal ligation Social History household members: spouse Smoking Status: Former smoker Exam Initial Vital Signs Initial Vital Signs: Vital Signs Temperature 98.1 F 01/18/18 04:15 Pulse Rate 72 01/18/18 04:15 Respiratory Rate 20 01/18/18 04:15 Blood Pressure 164/81 H 01/18/18 04:15 Pulse Oximetry 100 01/18/18 04:15 Const General: cooperative and well developed Nutritional Appearance: well nourished Orientation: alert, awake, oriented x3 and not confused Other: Patient appears generally uncomfortable. HENMT Head: normocephalic and atraumatic Ears: external ears normal and TM's normal bilaterally Nose: external nose normal and No nasal discharge Face and sinus: sinuses nontender, face symmetric, no sinus tenderness and No dry mucous membranes Mouth: oral mucosae normal and moist mucous membranes Teeth and gingiva: dentition normal Throat: tonsils normal and uvula midline Eyes General: appearance normal, both eyes and all related structures Eyelids: eyelids normal Conjunctivae: conjunctivae normal Sclera: sclerae normal Pupils: PERRL EOM: EOM intact bilaterally Neck Neck: normal visual inspection, trachea midline, No lymphadenopathy, No midline deformity and No JVD Lymphatic: No lymphedema Chest Chest: normal inspection of the chest Resp Effort & Inspection: normal respiratory effort, able to speak in complete sentences, no respiratory distress and no use of accessory muscles Auscultation: clear to auscultation bilaterally, no rales, no rhonchi and no wheezes Cardio Rate: regular rate Rhythm: regular rhythm Heart Sounds: no click, no gallops, no murmurs and no rubs Pulses: normal peripheral pulses GI Inspection: non-distended Palpation: soft, no hepatosplenomegaly, No guarding, No pulsatile mass and tender (Moderate, bilateral upper abdomen; mild, bilateral lower abdomen.) Auscultation: normal bowel sounds Back/Spine/Pelvis Back: No CVA tenderness Cervical Spine: cervical ROM normal and No pain with cervical ROM Thoracic/Lumbar Spine: thoracic and lumbar spine normal to inspection Skin General: no rashes or lesions noted, No jaundice and No petechiae Neuro General: alert, oriented x3, gait normal and no focal motor deficits Speech: speech normal Extrem General: full ROM, no clubbing, cyanosis or edema, no pedal edema and no calf tenderness Psych Appearance: well kempt Mental Status: mental status grossly normal Attitude: cooperative Thought Content: normal and suicidality Judgment: judgment good Course Course Narrative: The patient was treated symptomatically in the emergency department and worked up with labs and ultimately, CT scan of the abdomen and pelvis. She was found have a small bowel obstruction. I did order an NG tube, and the patient was kept NPO. I spoke with Dr. Whitley, as well as the on-call surgeon, and arrangements were made for the patient to be admitted to the hospital under hospitalist service. Patient and family were informed of the diagnosis. Orders Ordered: Discontinued Medications Bupropion HCl (Wellbutrin Xl) 300 mg PO DAILY [facility] Admin: 01/22/18 08:59 Dose: 300 mg Admin: 01/21/18 09:53 Dose: 300 mg Diphenhydramine HCl (Benadryl Elixer) 12.5 mg PO Q6HR PRN PRN Reason: NAUSEA OR ITCHING Docusate Sodium (Colace) 100 mg PO BID [facility] Last Admin: 01/22/18 09:02 Dose: Not Given Admin: 01/21/18 20:33 Dose: Not Given Admin: 01/21/18 09:54 Dose: 100 mg Admin: 01/20/18 20:32 Dose: 100 mg Heparin Sodium (Porcine) (Heparin) 5,000 unit SUBCUT BID [facility] Last Admin: 01/22/18 09:02 Dose: Not Given Admin: 01/21/18 20:33 Dose: Not Given Admin: 01/21/18 10:25 Dose: Not Given Admin: 01/20/18 20:32 Dose: Not Given Admin: 01/20/18 09:05 Dose: Not Given Admin: 01/19/18 21:00 Dose: Not Given Admin: 01/19/18 10:08 Dose: Not Given Admin: 01/18/18 19:58 Dose: Not Given Admin: 01/18/18 10:38 Dose: Hydralazine HCl (Apresoline) 10 mg IV Q6HR PRN PRN Reason: SBP>160 Hydromorphone HCl (Dilaudid) 1 mg IV NOW ONE Stop: 01/18/18 04:56 Last Admin: 01/18/18 05:08 Dose: 1 mg Hydromorphone HCl (Dilaudid) 0.5 mg IV NOW ONE Stop: 01/18/18 07:13 Last Admin: 01/18/18 07:21 Dose: 0.5 mg Piperacillin/Tazobactam/Dextrose (Zosyn) 3.375 gm in 50 mls @ 100 mls/hr IV NOW ONE Stop: 01/18/18 07:43 Last Infusion: 01/18/18 07:57 Dose: 0 mls/hr Admin: 01/18/18 07:28 Dose: 100 mls/hr Dextrose/Sodium Chloride (Dextrose 5%-0.9% Ns) 1,000 mls @ 100 mls/hr IV CONT [facility] Last Admin: 01/18/18 20:42 Dose: 100 mls/hr Infusion: 01/18/18 18:44 Dose: 100 mls/hr Admin: 01/18/18 08:44 Dose: 100 mls/hr Metronidazole (Flagyl) 500 mg in 100 mls @ 100 mls/hr IV Q8H [facility] Last Infusion: 01/20/18 07:06 Dose: 100 mls/hr Admin: 01/20/18 05:56 Dose: 100 mls/hr Infusion: 01/19/18 23:44 Dose: 100 mls/hr Infusion: 01/19/18 23:24 Dose: 100 mls/hr Admin: 01/19/18 22:44 Dose: 100 mls/hr Infusion: 01/19/18 15:00 Dose: 100 mls/hr Admin: 01/19/18 13:00 Dose: 100 mls/hr Infusion: 01/19/18 06:55 Dose: 0 mls/hr Admin: 01/19/18 05:40 Dose: 100 mls/hr Infusion: 01/18/18 23:00 Dose: 0 mls/hr Admin: 01/18/18 21:22 Dose: 100 mls/hr Infusion: 01/18/18 17:10 Dose: 0 mls/hr Admin: 01/18/18 14:41 Dose: 100 mls/hr Ciprofloxacin (Cipro) 400 mg in 200 mls @ 200 mls/hr IV Q12H [facility] Last Admin: 01/20/18 06:55 Dose: Not Given Admin: 01/19/18 21:14 Dose: Not Given Infusion: 01/19/18 07:55 Dose: 200 mls/hr Admin: 01/19/18 06:55 Dose: 200 mls/hr Infusion: 01/18/18 20:40 Dose: 0 mls/hr Admin: 01/18/18 18:37 Dose: 200 mls/hr Potassium Chloride/Sodium Chloride (Ns With Kcl 40 Meq) 1,000 mls @ 70 mls/hr IV CONT [facility] Last Admin: 01/20/18 12:01 Dose: 100 mls/hr Infusion: 01/20/18 12:01 Dose: 100 mls/hr Admin: 01/20/18 02:14 Dose: 100 mls/hr Infusion: 01/20/18 02:13 Dose: 100 mls/hr Admin: 01/19/18 10:05 Dose: 100 mls/hr Zoledronic Acid 4 mg/ Sodium (Chloride) 105 mls @ 315 mls/hr IV NOW ONE Stop: 01/20/18 12:42 Last Admin: 01/20/18 14:21 Dose: Lorazepam (Ativan) 1 mg IV NOW ONE Stop: 01/18/18 09:34 Last Admin: 01/18/18 10:33 Dose: 1 mg Lorazepam (Ativan) 0.5 mg IV Q6HR PRN PRN Reason: Anxiety Last Admin: 01/20/18 01:00 Dose: 0.5 mg Admin: 01/19/18 08:51 Dose: 0.5 mg Admin: 01/18/18 13:10 Dose: 0.5 mg Lorazepam (Ativan) 1 mg PO BEDTIME PRN PRN Reason: Sleep Last Admin: 01/21/18 20:33 Dose: 1 mg Lorazepam (Ativan) 0.5 mg IV Q6HR PRN PRN Reason: Anxiety Magnesium Hydroxide (Milk Of Magnesia) 30 ml PO DAILY [facility] Last Admin: 01/22/18 09:02 Dose: Not Given Admin: 01/21/18 10:26 Dose: Not Given Admin: 01/20/18 14:22 Dose: 30 ml Metoprolol Succinate (Toprol Xl) 12.5 mg PO BID [facility] Last Admin: 01/22/18 09:03 Dose: 12.5 mg Admin: 01/21/18 20:30 Dose: 12.5 mg Admin: 01/21/18 09:54 Dose: 12.5 mg Admin: 01/20/18 20:32 Dose: Not Given Metoprolol Tartrate (Lopressor) 5 mg IV Q6H PRN PRN Reason: SBP>180 AND/OR HR >110 Morphine Sulfate (Morphine) 2 mg IV Q4HR PRN PRN Reason: Pain, Moderate (4-6) Last Admin: 01/18/18 19:57 Dose: 2 mg Ondansetron HCl (Zofran) 4 mg IV NOW ONE Stop: 01/18/18 05:48 Last Admin: 01/18/18 05:50 Dose: 4 mg Ondansetron HCl (Zofran) 4 mg IV NOW ONE Stop: 01/18/18 07:28 Last Admin: 01/18/18 07:28 Dose: 4 mg Ondansetron HCl (Zofran) 4 mg IV Q6HR PRN PRN Reason: Nausea And Vomiting Last Admin: 01/18/18 19:57 Dose: 4 mg Ondansetron HCl (Zofran Odt) 4 mg PO Q4HR PRN PRN Reason: Nausea Pantoprazole Sodium (Protonix) 40 mg IV DAILY [facility] Last Admin: 01/22/18 09:02 Dose: Not Given Admin: 01/21/18 09:51 Dose: Not Given Admin: 01/20/18 12:01 Dose: 40 mg Admin: 01/19/18 10:08 Dose: 40 mg Admin: 01/18/18 13:10 Dose: 40 mg Potassium Chloride (Klor-Con M20) 40 meq PO NOW ONE Stop: 01/22/18 11:42 Sodium Biphosphate/Sodium Phosphate (Fleet Enema) 0 each CO NOW [facility] Stop: 01/20/18 13:46 Last Admin: 01/19/18 00:54 Dose: 1 each Admin: 01/18/18 21:23 Dose: 1 each Admin: 01/18/18 17:55 Dose: 1 each Temazepam (Resoril) 15 mg PO BEDTIME PRN PRN Reason: Sleep Last Admin: 01/20/18 21:57 Dose: 15 mg Vital Signs - 8 hr 01/18/18 04:15 01/18/18 04:53 Temperature 98.1 F Pulse Rate 72 71 Respiratory Rate 20 Blood Pressure 164/81 H Blood Pressure [Right Arm] 143/70 H Pulse Oximetry 100 99 MDM - Abdominal Pain Medical Records Attestation: I reviewed the patient's medical records. Lab Data Attestation: I reviewed the patient's lab results. Result diagrams: 01/22/18 05:53 01/22/18 05:53 Lab Results 01/18/18 01/18/18 01/18/18 Range/Units 04:30 04:30 04:30 WBC 12.8 H (4.5-11.0) X10^3/uL RBC 4.00 (4.0-5.2) X10^6/uL Hgb 12.1 (12.0-16.0) g/dL Hct 36.7 (36-46) % MCV 91.7 (80-100) fL MCH 30.3 (26-34) PG MCHC 33.0 (30-36) % RDW 13.5 (11.6-14.8) % Plt Count 350 (150-400) X10^3/uL Neut % (Auto) 68.7 (50-75) % Lymph % (Auto) 20.0 L (25-40) % [place] % (Auto) 8.5 (3-14) % Eos % (Auto) 2.0 (2-4) % Baso % (Auto) 0.8 (0-2) % Neut # (Auto) 8800 H (1683-5080) /uL Sodium 140 (137-145) mmol/L Potassium 4.3 (3.4-5.1) mmol/L Chloride 102 (98-107) mmol/L Carbon Dioxide 28 (22-32) mmol/L BUN 17 (7-17) mg/dL Creatinine 0.80 (0.52-1.04) mg/dL Estimated GFR > 60.0 (>60) mL/min BUN/Creatinine Ratio 21.3 (6-22) Glucose 145 H (80-110) mg/dL Hemoglobin A1c 6.1 H (4.0-6.0) % Lactate (0.7-2.1) mmol/L Calcium 9.8 (8.4-10.2) mg/dL Phosphorus (2.8-4.1) mg/dL Magnesium (1.6-2.3) mg/dL Total Bilirubin 0.2 (0.2-1.3) mg/dL AST 15 (14-36) IU/L ALT 20 (9-52) IU/L Alkaline Phosphatase 54 (38-126) U/L Total Protein 7.2 (6.3-8.2) g/dL Albumin 4.4 (3.5-5.0) g/dL Globulin 2.8 (1.7-4.1) g/dL Albumin/Globulin Ratio 1.6 (1.0-2.8) Lipase 81 (23-300) U/L Urine Color Urine Appearance Urine pH (4.5-8.0) Ur Specific [place] (1.000-1.035) Urine Protein (Negative) Urine Glucose (UA) (Normal) g/dL Urine Ketones (NEGATIVE) Urine Occult Blood (Negative) Urine Nitrate (Negative) Urine Bilirubin (NEGATIVE) Urine Urobilinogen (0.2) E.U./dL Ur Leukocyte Esterase (NEGATIVE) Urine RBC (0-5/HPF) Urine WBC (0-5/HPF) Amorphous Sediment Urine Bacteria (None) Ur Culture Indicated? Micro UA Comment 01/18/18 01/18/18 01/18/18 Range/Units 07:40 07:40 10:12 WBC (4.5-11.0) X10^3/uL RBC (4.0-5.2) X10^6/uL Hgb (12.0-16.0) g/dL Hct (36-46) % MCV (80-100) fL MCH (26-34) PG MCHC (30-36) % RDW (11.6-14.8) % Plt Count (150-400) X10^3/uL Neut % (Auto) (50-75) % Lymph % (Auto) (25-40) % [place] % (Auto) (3-14) % Eos % (Auto) (2-4) % Baso % (Auto) (0-2) % Neut # (Auto) (3345-6189) /uL Sodium (137-145) mmol/L Potassium (3.4-5.1) mmol/L Chloride (98-107) mmol/L Carbon Dioxide (22-32) mmol/L BUN (7-17) mg/dL Creatinine (0.52-1.04) mg/dL Estimated GFR (>60) mL/min BUN/Creatinine Ratio (6-22) Glucose (80-110) mg/dL Hemoglobin A1c (4.0-6.0) % Lactate 1.3 (0.7-2.1) mmol/L Calcium (8.4-10.2) mg/dL Phosphorus 3.6 (2.8-4.1) mg/dL Magnesium 2.0 (1.6-2.3) mg/dL Total Bilirubin (0.2-1.3) mg/dL AST (14-36) IU/L ALT (9-52) IU/L Alkaline Phosphatase (38-126) U/L Total Protein (6.3-8.2) g/dL Albumin (3.5-5.0) g/dL Globulin (1.7-4.1) g/dL Albumin/Globulin Ratio (1.0-2.8) Lipase (23-300) U/L Urine Color Yellow Urine Appearance Clear Urine pH 5.5 (4.5-8.0) Ur Specific [place] 1.010 (1.000-1.035) Urine Protein Negative (Negative) Urine Glucose (UA) Negative (Normal) g/dL Urine Ketones Negative (NEGATIVE) Urine Occult Blood 3+ H (Negative) Urine Nitrate Negative (Negative) Urine Bilirubin Negative (NEGATIVE) Urine Urobilinogen 0.2 (0.2) E.U./dL Ur Leukocyte Esterase Negative (NEGATIVE) Urine RBC 5-10/hpf H (0-5/HPF) Urine WBC None seen (0-5/HPF) Amorphous Sediment 1+ Urine Bacteria None seen (None) Ur Culture Indicated? Cult not indicated Micro UA Comment Not Reportable 01/19/18 01/19/18 01/20/18 Range/Units 05:42 05:42 05:50 WBC 7.0 7.1 (4.5-11.0) X10^3/uL RBC 3.35 L 3.63 L (4.0-5.2) X10^6/uL Hgb 10.4 L 11.3 L (12.0-16.0) g/dL Hct 30.5 L 32.9 L (36-46) % MCV 91.1 90.6 (80-100) fL MCH 31.0 31.0 (26-34) PG MCHC 34.1 34.2 (30-36) % RDW 13.4 13.1 (11.6-14.8) % Plt Count 281 312 (150-400) X10^3/uL Neut % (Auto) 65.4 46.4 L (50-75) % Lymph % (Auto) 20.1 L 39.2 (25-40) % [place] % (Auto) 12.4 10.7 (3-14) % Eos % (Auto) 1.5 L 2.9 (2-4) % Baso % (Auto) 0.6 0.8 (0-2) % Neut # (Auto) 4600 3300 (8979-0208) /uL Sodium 142 (137-145) mmol/L Potassium 3.2 L (3.4-5.1) mmol/L Chloride 106 (98-107) mmol/L Carbon Dioxide 27 (22-32) mmol/L BUN 8 (7-17) mg/dL Creatinine 0.60 (0.52-1.04) mg/dL Estimated GFR > 60.0 (>60) mL/min BUN/Creatinine Ratio 13.3 (6-22) Glucose 167 H (80-110) mg/dL Hemoglobin A1c (4.0-6.0) % Lactate (0.7-2.1) mmol/L Calcium 8.3 L (8.4-10.2) mg/dL Phosphorus (2.8-4.1) mg/dL Magnesium (1.6-2.3) mg/dL Total Bilirubin 0.3 (0.2-1.3) mg/dL AST 11 L (14-36) IU/L ALT 20 (9-52) IU/L Alkaline Phosphatase 42 (38-126) U/L Total Protein 5.7 L (6.3-8.2) g/dL Albumin 3.3 L (3.5-5.0) g/dL Globulin 2.4 (1.7-4.1) g/dL Albumin/Globulin Ratio 1.4 (1.0-2.8) Lipase (23-300) U/L Urine Color Urine Appearance Urine pH (4.5-8.0) Ur Specific [place] (1.000-1.035) Urine Protein (Negative) Urine Glucose (UA) (Normal) g/dL Urine Ketones (NEGATIVE) Urine Occult Blood (Negative) Urine Nitrate (Negative) Urine Bilirubin (NEGATIVE) Urine Urobilinogen (0.2) E.U./dL Ur Leukocyte Esterase (NEGATIVE) Urine RBC (0-5/HPF) Urine WBC (0-5/HPF) Amorphous Sediment Urine Bacteria (None) Ur Culture Indicated? Micro UA Comment 01/20/18 01/21/18 01/21/18 Range/Units 05:50 06:00 06:00 WBC 5.9 (4.5-11.0) X10^3/uL RBC 3.58 L (4.0-5.2) X10^6/uL Hgb 11.1 L (12.0-16.0) g/dL Hct 32.0 L (36-46) % MCV 89.4 (80-100) fL MCH 31.0 (26-34) PG MCHC 34.6 (30-36) % RDW 13.0 (11.6-14.8) % Plt Count 320 (150-400) X10^3/uL Neut % (Auto) 43.3 L (50-75) % Lymph % (Auto) 40.7 H (25-40) % [place] % (Auto) 10.8 (3-14) % Eos % (Auto) 4.2 H (2-4) % Baso % (Auto) 1.0 (0-2) % Neut # (Auto) 2600 L (8692-0335) /uL Sodium 143 141 (137-145) mmol/L Potassium 3.5 3.6 (3.4-5.1) mmol/L Chloride 106 102 (98-107) mmol/L Carbon Dioxide 27 29 (22-32) mmol/L BUN 4 L 6 L (7-17) mg/dL Creatinine 0.60 0.60 (0.52-1.04) mg/dL Estimated GFR > 60.0 > 60.0 (>60) mL/min BUN/Creatinine Ratio 6.7 10.0 (6-22) Glucose 100 81 (80-110) mg/dL Hemoglobin A1c (4.0-6.0) % Lactate (0.7-2.1) mmol/L Calcium 8.5 8.6 (8.4-10.2) mg/dL Phosphorus (2.8-4.1) mg/dL Magnesium (1.6-2.3) mg/dL Total Bilirubin 0.4 0.3 (0.2-1.3) mg/dL AST 12 L 13 L (14-36) IU/L ALT 22 18 (9-52) IU/L Alkaline Phosphatase 46 45 (38-126) U/L Total Protein 6.2 L 5.9 L (6.3-8.2) g/dL Albumin 3.6 3.5 (3.5-5.0) g/dL Globulin 2.6 2.4 (1.7-4.1) g/dL Albumin/Globulin Ratio 1.4 1.5 (1.0-2.8) Lipase (23-300) U/L Urine Color Urine Appearance Urine pH (4.5-8.0) Ur Specific [place] (1.000-1.035) Urine Protein (Negative) Urine Glucose (UA) (Normal) g/dL Urine Ketones (NEGATIVE) Urine Occult Blood (Negative) Urine Nitrate (Negative) Urine Bilirubin (NEGATIVE) Urine Urobilinogen (0.2) E.U./dL Ur Leukocyte Esterase (NEGATIVE) Urine RBC (0-5/HPF) Urine WBC (0-5/HPF) Amorphous Sediment Urine Bacteria (None) Ur Culture Indicated? Micro UA Comment 01/22/18 01/22/18 Range/Units 05:53 05:53 WBC 6.7 (4.5-11.0) X10^3/uL RBC 3.47 L (4.0-5.2) X10^6/uL Hgb 10.7 L (12.0-16.0) g/dL Hct 30.8 L (36-46) % MCV 88.8 (80-100) fL MCH 30.9 (26-34) PG MCHC 34.8 (30-36) % RDW 13.2 (11.6-14.8) % Plt Count 347 (150-400) X10^3/uL Neut % (Auto) 52.6 (50-75) % Lymph % (Auto) 29.3 (25-40) % [place] % (Auto) 13.3 (3-14) % Eos % (Auto) 3.5 (2-4) % Baso % (Auto) 1.3 (0-2) % Neut # (Auto) 3600 (8738-0862) /uL Sodium 141 (137-145) mmol/L Potassium 3.2 L (3.4-5.1) mmol/L Chloride 102 (98-107) mmol/L Carbon Dioxide 29 (22-32) mmol/L BUN 13 (7-17) mg/dL Creatinine 0.70 (0.52-1.04) mg/dL Estimated GFR > 60.0 (>60) mL/min BUN/Creatinine Ratio 18.6 (6-22) Glucose 95 (80-110) mg/dL Hemoglobin A1c (4.0-6.0) % Lactate (0.7-2.1) mmol/L Calcium 9.0 (8.4-10.2) mg/dL Phosphorus (2.8-4.1) mg/dL Magnesium (1.6-2.3) mg/dL Total Bilirubin 0.3 (0.2-1.3) mg/dL AST 21 (14-36) IU/L ALT 23 (9-52) IU/L Alkaline Phosphatase 41 (38-126) U/L Total Protein 6.1 L (6.3-8.2) g/dL Albumin 3.6 (3.5-5.0) g/dL Globulin 2.5 (1.7-4.1) g/dL Albumin/Globulin Ratio 1.4 (1.0-2.8) Lipase (23-300) U/L Urine Color Urine Appearance Urine pH (4.5-8.0) Ur Specific [place] (1.000-1.035) Urine Protein (Negative) Urine Glucose (UA) (Normal) g/dL Urine Ketones (NEGATIVE) Urine Occult Blood (Negative) Urine Nitrate (Negative) Urine Bilirubin (NEGATIVE) Urine Urobilinogen (0.2) E.U./dL Ur Leukocyte Esterase (NEGATIVE) Urine RBC (0-5/HPF) Urine WBC (0-5/HPF) Amorphous Sediment Urine Bacteria (None) Ur Culture Indicated? Micro UA Comment Imaging Data CT scan - abdomen: Radiologist's impression: [address] [address] [address] Scan Report Signed Patient: Edna Condon MR#: [id number] : 1940 Acct:[id number] Age/Sex: 77 / F Date of Service: 01/18/18 Loc: 213-1 Accession Number: [id number] Procedure: CT abdomen pelvis w con Ordering Provider: Flores Taveras MD PROCEDURE: CT ABDOMEN PELVIS W CON INDICATIONS: abdominal pain TECHNIQUE: After the administration of oral and intravenous contrast, 5 mm thick sections acquired from the diaphragms to the symphysis. 5 mm thick coronal and sagittal reformats were performed. For radiation dose reduction, the following was used: automated exposure control, adjustment of mA and/or kV according to patient size. COMPARISON: None. FINDINGS: Image quality: Excellent. ABDOMEN: Lung bases: There is linear scarring in the left lower lobe. Heart size is normal. There is a moderate-sized hiatal hernia. Solid organs: A small hypodensity is demonstrated in the right hepatic lobe measuring approximately 0.6 cm which is too small to characterize but statistically likely represents a cyst. The gallbladder is distended without calcified gallstones or wall thickening. Biliary system is non-dilated. Pancreas enhances normally without peripancreatic fat stranding or fluid collections. There are a few punctate calcifications in the pancreatic tail suggesting sequela of chronic pancreatitis. No pancreatic duct dilatation. Spleen is normal in size and enhancement. There is thickening of the adrenal glands and both a small nodular component in the right adrenal measuring up to 1.1 cm. Kidneys demonstrate no hydronephrosis. Peritoneum and bowel: There are postsurgical changes demonstrated along the stomach. There is distention of the proximal small bowel, measuring up to approximately 3.9 cm in diameter with multiple air-fluid levels. There is a small bowel feces sign in the right lower quadrant leading to a transition point in the right hemipelvis centered on series 2 image 63. More distal loops of small bowel are nondistended. The findings are consistent with a small bowel obstruction. There is a small amount of interloop free fluid as well as small amount of free fluid in the pelvis, suggestive of a high-grade obstruction. The colon is normal in caliber and wall thickness. Colonic diverticulosis is present without acute diverticulitis. Nodes and vessels: No retroperitoneal or mesenteric adenopathy. Aorta and inferior vena cava are normal in caliber. Miscellaneous: No ventral hernias. PELVIS: Genitourinary: Bladder wall thickness is normal. There are multiple densely calcified fibroids within the uterus. Miscellaneous: No inguinal hernias or adenopathy. Bones: No suspicious bony lesions. No vertebral body compression fractures. IMPRESSION: 1. Findings consistent with a small bowel obstruction, likely high-grade given the presence of interloop and pelvic free fluid, with the transition point in the right hemipelvis as described. Findings are likely secondary to adhesions. Findings were discussed with Dr. Taveras on 01/18/18 at 6:59 AM by [facility] radiology services. 2. Colonic diverticulosis without acute diverticulitis. 3. Thickening of degenerative glands bilaterally with a small nodular component in the right adrenal measuring up to 1 cm. The finding is indeterminate and if indicated further evaluation may be obtained with an adrenal protocol MRI or CT. Dictated by: aBsilio Linton M.D. on 01/18/2018 at 8:11 Approved by: Basilio Linton M.D. on 01/18/2018 at 8:23 Discharge Plan Departure Patient Disposition: Admitted As Inpatient Clinical Impression: SBO (small bowel obstruction) Discharge Date/Time: 01/18/18 08:07 Interventions: ED Discharge Assessment Last Done: 01/18/18 08:06 Admit Date/Time: 01/18/18 07:28 Admit Provider: Shelby Cornejo
[2018-01-18] MEDS: ONDANSETRON 4 MG/2 ML INJ IV ×3 (05:50→19:57)
[2018-01-18] MEDS: HYDROMORPHONE 1 MG INJ 0.5 MG IV (07:21)
[2018-01-18] MEDS: PIPERACILLIN-TAZO 3.375 GM/50 ML FROZ.PIGGY IV (07:28)
--- NOTE | 2018-01-18 07:39 | PC.NURSE ---
attempted to put an NG tube 2x with no success. provider aware.
[2018-01-18 07:57] LABS: Lactate (Lactic Acid) 1.3 mmol/L (0.7-2.1); Phosphorous 3.6 mg/dL (2.8-4.1)
--- NOTE | 2018-01-18 08:19 | PC.NURSE ---
Day shift: Arrived on unit at approx 0810. A&Ox3. C/o nausea. Denies any pain. Oriented to room and call light. Family at bedside for support. They could not place NG tube due to tipped trach. Family at bedside for support.
[2018-01-18] MEDS: DEXTROSE 5%-0.9% NS 1,000 ML 100 ML IV ×2 (08:44→20:42)
[2018-01-18] MEDS: LORazepam 2 MG/ML SYRINGE 1 MG IV (10:33)
--- NOTE | 2018-01-18 10:51 | DI.RAD.S_ITS ---
PROCEDURE: XR CHEST 1V INDICATIONS: NG tube placement TECHNIQUE: One view of the chest was acquired. COMPARISON: [facility], , CHEST 2 VIEW, 03/27/2014, 11:51. FINDINGS: Surgical changes and devices: Nasogastric tube is identified with the tip coiled at the gastroesophageal junction and subsequently extending cranially to approximately the level of the left mainstem bronchus. Lungs and pleura: No pleural effusions or pneumothorax. Lungs are clear. There is aortic atherosclerosis. Mediastinum: Mediastinal contours appear normal. Heart size is normal. There is aortic atherosclerosis. Bones and chest wall: No suspicious bony lesions. The bone mineralization appears decreased. There may be an old injury of the inferior glenoid on the left. Overlying soft tissues appear unremarkable. IMPRESSION: Nasogastric tube is coiled within the esophagus with the tip directed cranially. Withdrawal of the catheter by at least 20 cm and re advancement is recommended. Dictated by: Jamar Holley M.D. on 01/18/2018 at 10:22 Approved by: Jamar Holley M.D. on 01/18/2018 at 10:24
[2018-01-18 10:55] LABS: Bacteria Urine None Seen; WBC Urine None Seen (0-5/HPF)
[2018-01-18 10:59] LABS: Appearance Urine UA CLEAR; Bilirubin Urine UA NEGATIVE (NEGATIVE); Color Urine UA YELLOW; Glucose Urine UA NEGATIVE (Normal); Ketones Urine UA NEGATIVE (NEGATIVE); Leukocyte Esterase Urine UA NEGATIVE (NEGATIVE); Nitrite Urine UA NEGATIVE (Negative); Occult Blood Urine UA 3+ (Negative); Protein Urine UA NEGATIVE (Negative); Urobilinogen Urine UA 0.2 E.U./dL (0.2); pH Urine UA 5.5 (4.5-8.0)
[2018-01-18 11:07] LABS: RBC Urine 5-10/HPF (0-5/HPF)
[2018-01-18 11:08] LABS: Amorphous Sediment Urine 1+; Culture Indicated Urine Cult Not Indicated
--- NOTE | 2018-01-18 11:53 | DI.RAD.S_ITS ---
PROCEDURE: XR CHEST 1V INDICATIONS: NG placement/re-placement TECHNIQUE: One view of the chest was acquired. COMPARISON: [facility], CR, XR CHEST 1V, 01/18/2018, 10:59. FINDINGS: Surgical changes and devices: Nasogastric tube is present coiled within the midesophagus and appearing to extend into a left upper lobe bronchus. Lungs and pleura: No pleural effusions or pneumothorax. Lungs are clear. Mediastinum: Mediastinal contours appear normal. Heart size is normal. Bones and chest wall: No suspicious bony lesions. Overlying soft tissues appear unremarkable. IMPRESSION: Nasogastric tube as above. Recommend removal and repositioning. The above findings were discussed with the patient's nurse Myranda on 01/18/18 at 12:26 PM. Dictated by: Alta Mayorga M.D. on 01/18/2018 at 12:23 Approved by: Alta Mayorga M.D. on 01/18/2018 at 12:27
--- NOTE | 2018-01-18 12:00 | PT.IIE ---
Current Diagnoses Unspecified intestinal obstruction, unspecified as to partial versus complete obstruction (01/18/18) Surgical History (Last Updated 01/18/18 @ 12:29 by Shelby Cornejo DO) H/O hysterectomy for benign disease (Acute) History of cataract removal with insertion of prosthetic lens Status post tubal ligation Medical History (Last Updated 01/18/18 @ 12:29 by Shelby Cornejo DO) HTN (hypertension) (Acute) Takotsubo cardiomyopathy (Acute) Physical Therapy Inpatient Evaluation/Re-Eval M1 PT/OT-IP Prior Functional Status Start: 01/18/18 12:26 Freq: NEEDED Status: Active Protocol: Document 01/18/18 12:00 HH (Rec: 01/18/18 12:55 [id number]) Medical Review Prior Functional Status Medical History Reviewed Yes Communication No deficits noted Mobility and Gait Pt was an independent ambulator at home and community without any assistance and assistive device prior to admission based on family report. Activities of Daily Living and IADL's Pt was independent for ADLs and IADLs prior to admission based on family report. 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 Social History Household Members spouse Living Arrangements House Number of Floors (Floors) One Floor Number of Stairs To Enter/Railing? 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 Pt's family reports pt is independent for ADLs and IDALs without using AD. Pt drives as well. M2 PT-IP Current Condition Start: 01/18/18 12:26 Freq: NEEDED Status: Active Protocol: Document 01/18/18 12:00 HH (Rec: 01/18/18 12:55 [id number]) Physical Therapy Current Condition Current Condition Evaluation Date 01/18/18 Treatment Diagnosis Acute abdominal pain; generalized muscle weakness; difficulty in walking Onset Date 01/18/18 Precautions Other Precautions Pt is now on NG tube for suctioning. M3 PT-IP Subjective Start: 01/18/18 12:26 Freq: NEEDED Status: Active Protocol: Document 01/18/18 16:45 HH (Rec: 01/18/18 17:57 [id number]) Subjective Physical Therapy Visit Type Type Treatment Note Visit Start Time 16:45 Visit Stop Time 17:20 Notes Pt appears alert and oriented with family members in beside upon tx session. Pt denies of abdominal pain and agreeable to mobilize with PT. Pt currently has a NG suctioning tube connected to wall. Mobilize pt accordingly. Physical Therapy Visit Comments Patient Comments Pt's spouse reports She looks better and more alert now compared to this morning. Pt states I feel weak but i want to get out of bed. Therapy Pain Assessment Pain Present Pain Present Denied Pain M4 PT-IP Mobility and Gait Start: 01/18/18 12:26 Freq: NEEDED Status: Active Protocol: Document 01/18/18 16:45 HH (Rec: 01/18/18 17:57 [id number]) PT-Bed Mobility Assessment Rolling Type of Rolling Bilateral Level of Assist Standby Assistance Supine to Sit Supine to Sit Standby Assistance Sit to Supine Sit to Supine Standby Assistance Scooting Scooting to Edge of Bed Standby Assistance PT-Transfer Assessment Sit to and From Stand Sit to and from Stand Standby Assistance Use of Upper Extremities Equipment Transfer Assistive Device Bed Rail Front Wheeled Walker Transfers Transfer Destination Bed Chair Bedside Commode Transfer Ability Level of Assist Standby Assistance Comments Mobility Comments Pt BP remains 120-137/ 60-78 HR 80-95 during the entire tx session. Pt performs supine to sit from elevated bed 30 degrees with bedrails SBA; sit <> stand x 5 with SBA FWW; commode transfer with FWW SBA x 2. Pt did not c/o acute distress and abdominal pain during tx session. Pt is able to demosntrate safe transfer with the use of FWW and bedrails for support and push off. Gait Assessment Gait Gait Assistance Required: Standby Assistance Assistive Devices Assistive Device Gait Belt Front Wheeled Walker Gait Deviations General Gait Pattern Decreased Stride Length Decreased Feet Clearance Factors Limiting Gait Function Factors Limiting Gait Function Decreased Activity Tolerance Decreased Strength Poor Balance Comments Gait Comments Pt amb from EOB to commode (4 feet away) with FWW SBA 4 feet x 8. Pt demonstrates decrease in stride length and feet clearance. I walked slower compared to when i was at home. Pt also attempt to amb without AD but with CGA x 4 feet x 2 but demonstrates further decrease in stride length and feet clearance. However, pt did not show signs of LOB and acute distress during tx session. Stair Climbing Assessment Comments Stair Climbing Comments did not attempt PT-Balance Assessment Sitting Balance and Reactions Static Sitting Balance Ability Normal Dynamic Sitting Balance Ability Normal Standing Balance and Reactions Static Standing Balance Ability Good Dynamic Standing Balance Ability Good Comments Other Balance Tests/Deviations/Treatment Excessive posterior and : anterior sway during dynamic reach across midline with UE without support from FWW. M5 PT-IP Objective Assessments Start: 01/18/18 12:26 Freq: NEEDED Status: Active Protocol: Document 01/18/18 16:45 HH (Rec: 01/18/18 17:57 [id number] Orientation Orientation/Cognition Level of Alertness Alert Orientation Name Age Birthday Month Date Year Day of Week Place Situation Gross Range of Motion Upper Extremity ROM Assessment Within Functional Limits Lower Extremity ROM Assessment Within Functional Limits Strength Upper Extremity Strength Assessment Within Functional Limits Lower Extremity Strength Assessment Within Functional Limits M6 PT-IP Treatment Start: 01/18/18 12:26 Freq: NEEDED Status: Active Protocol: Document 01/18/18 16:45 HH (Rec: 01/18/18 17:57 [id number]) Physical Therapy Treatment Exercises Exercises Ankle Pumps Gluteal Sets Quad Sets Heel Slides Straight Leg Raises Education Education Provided Safety Other Treatments Other Treatment Performed seated leg press against PT in bed. seated leg press with red thera band. M7 PT-IP Assessment and Plan Start: 01/18/18 12:26 Freq: NEEDED Status: Active Protocol: Document 01/18/18 16:45 (Rec: 01/18/18 17:57 [id number] PT Summary Assessment and Plan Potential Rehabilitation Potential Excellent Status of Condition at Evaluation Evolving Summary Impairments Strength Balance Bed Mobility Transfers Gait Activity Tolerance Progress Towards Goals Progressing Toward Goals Assessment Summary Pt appears increased alertness and orientation since this morning possibly due to NG placement. Pt is now able to amb >20 feet with FWW SBA and transfer to bedside commode for toileting with FWW SBA. Pt is medically evolving due to her diagnosis and medical procedure. Pt has a very good rehab potential due to her high PLOF and supportive family. Pt cont requires skilled therapy to address her overall functional deconditioning and decrease in strength for functional activities prior to d/c to home. Goals Bed Mobility Goal Independent Transfer Goal Independent Gait Goal Independent Gait Distance 300 Days to Meet Goals 3 Frequency of Treatment Frequency Of Treatment Once a Day Treatment Plan Physical Therapy Treatment Plan Bed Mobility Training Transfer Training Gait Training Therapeutic Exercise Balance Retraining Discharge Planning Other Recommendations and Next Treatment gait training; transfer Focus training; bed mobility; stair training. Recommendations To Nursing Amount of Assist Needed Standby Assistance 1 Person Assist Discharge Recommendations PT Discharge Recommendations Home
--- NOTE | 2018-01-18 12:06 | PC.NURSE ---
Day shift: NG tube placed at approx 1100 today after talking w/ Dr Mckinney. It went in but after the 1st X-ray needed to be backed out 20cm per XRay. Backed out now and another xray being done as this is writen. Per Pt I had 70% of my stomach removed. Call light in reach. family at bedside for support.
--- NOTE | 2018-01-18 12:16 | PM.HP.1 ---
History of Present Illness Date Patient Seen: 01/18/18 Time Patient Seen: 12:16 Chief complaint: severe abdominal pain Narrative: - PATIENT WITH AN EXTENSIVE ABD SURGERY HX WHICH INCLUDED HYSTERECTOMY, PARTIAL COLECTOMY/ RESECTION, - CAME TO THE ED WITH ABD PAIN WHICH SHE REPORTED BEING SHARP AND DIFFUSED IN NATURE - THIS IS IMPROVED NOW ON PAIN MEDS; - REPORTED SOME NAUSEA BUT NO VOMITING - SHE DID CONFIRMED SHE WAS DC WITH TAKOTSUBO CMP A WHILE BACK BUT DOES NOT REMEMBER HER EF. - SHE ASO REPORTED THAT LATELY SHE HAS BEEN HAVING SOME FEELING OF WEAKNESS AND SLEEPINESS WHICH ARE UNUSUAL - DENIED CP/ORTHOPNEA/SYNCOPE. REPORTED SOB/HENDRICKS. NO OTHER COMPLAINTS FAMILY AT BEDSIDE Patient History Medical History HTN (hypertension) (Acute) Takotsubo cardiomyopathy (Acute) Surgical History H/O hysterectomy for benign disease (Acute) History of cataract removal with insertion of prosthetic lens Status post tubal ligation Family & Social History Family History: Reviewed 01/18/18 by Shelby Cornejo DO Social History: household members spouse Prior Living Arrangements House Safety & Behavioral: Feels Safe in Current Yes Environment Been Physically Hurt or No Threatened By a Person Suicidal Ideation Description None Suicide Plan Description No Plan Tobacco & Substance use: Smoking Status Former smoker alcohol intake frequency 0-2 drinks per day Substance Use Type does not use Meds Home Medications Medication Instructions Recorded Confirmed Type Probiotic 1 cap PO 1-2XD #0 11/11/16 01/18/18 History cholecalciferol (vitamin D3) 5,000 unit PO DAILY #0 11/11/16 01/18/18 History ginkgo biloba 120 mg PO DAILY #0 11/11/16 01/18/18 History vitamin E 1 cap PO DAILY #0 11/11/16 01/18/18 History CoQ-10 200 mg PO DAILY 01/18/18 01/18/18 History Joint Health 1 tab PO DAILY 01/18/18 01/18/18 History Stool Softener 1 cap PO DAILY PRN 01/18/18 01/18/18 History ascorbic acid (vitamin C) 1,500 mg PO DAILY 01/18/18 01/18/18 History biotin 5 mg PO DAILY 01/18/18 01/18/18 History bisacodyl 5 mg PO BEDTIME 01/18/18 01/18/18 History bupropion HCl 300 mg PO DAILY 01/18/18 01/18/18 History cyanocobalamin (vitamin B-12) 5,000 mcg PO Q OTHER DAY 01/18/18 01/18/18 History [Vitamin B-12] ipratropium bromide 2 spray INTRANASAL BID PRN 01/18/18 01/18/18 History metoprolol succinate 12.5 mg PO BID 01/18/18 01/18/18 History omeprazole magnesium [Prilosec OTC] 20 mg PO DAILY 01/18/18 01/18/18 History temazepam 15 - 30 mg PO BEDTIME PRN 01/18/18 01/18/18 History zoledronic esxz-[id number]-zjcde 5 mg IV DIRECTED 01/18/18 01/18/18 History [Reclast] Allergies Allergy/AdvReac Type Severity Reaction Status Date / Time Sulfa (Sulfonamide Allergy Intermediate HIVES Verified 01/18/18 07:19 Antibiotics) codeine Allergy Unknown Verified 01/18/18 07:19 lactose Allergy Unknown Verified 01/18/18 07:19 octreotide Allergy Unknown Verified 01/18/18 07:19 Review of Systems Review of Systems All systems reviewed & are unremarkable except as noted in HPI and below Exam Vital Signs (past 8 hours): - 01/18/18 04:53 01/18/18 06:16 01/18/18 08:06 Pulse Rate 71 67 64 Respiratory Rate 15 Blood Pressure 125/65 Blood Pressure [Right Arm] 143/70 H 115/68 Pulse Oximetry 99 97 100 Oxygen Delivery Method Room Air Narrative Exam Narrative: NO ACUTE DISTRESS. PATIENT IS ALERT ORIENTED X3. VITAL SIGNS STABLE HEAD ATRAUMATIC NORMOCEPHALIC NECK : SUPPLE WITHOUT ADENOPATHY NO CAROTID BRUITS EYE: EOMI, PERRLA, NORMAL CONJUNCTIVA; NO JAUNDICE CHEST: REGULAR RATE. NO RUBS. PMI IS NON DISPLACED. NO MURMURS; NORMAL S1-S2 PULMONARY: DECREASED BS OVER THE BASES. MILD BIBASILAR CRACKLES NOTED; NO INCREASED DULLNESS TO PERCUSSION ABDOMEN: SOFT. NONTENDER. NONDISTENDED. BOWEL SOUNDS ARE PRESENT IN ALL 4 QUADRANTS. NO MASS. EXTREMITIES: NO EDEMA.. NO CYANOSIS CLUBBING NOTED. NEURO: CRANIAL NERVES 2-12 GROSSLY INTACT. NO FOCAL NEUROLOGICAL DEFICIT NOTED. MSK: NORMAL RANGE OF MOTION FOR AGE. NO JOINT EFFUSION. SKIN: NORMAL FOR ETHNICITY; NO ECCHYMOSIS. NO LESION. GOOD TURGOR.; NO RASHES : NORMAL EXTERNAL GENITALIA. PSYCH : APPROPRIATE MOOD AND AFFECT. ALERT AWAKE ORIENTED X3 Objective Labs Result Diagrams: 01/18/18 04:30 01/18/18 04:30 Labs: Laboratory Results - last 24 hr 01/18/18 01/18/18 01/18/18 04:30 04:30 07:40 WBC 12.8 H RBC 4.00 Hgb 12.1 Hct 36.7 MCV 91.7 MCH 30.3 MCHC 33.0 RDW 13.5 Plt Count 350 Neut % (Auto) 68.7 Lymph % (Auto) 20.0 L Weber % (Auto) 8.5 Eos % (Auto) 2.0 Baso % (Auto) 0.8 Neut # (Auto) 8800 H Sodium 140 Potassium 4.3 Chloride 102 Carbon Dioxide 28 BUN 17 Creatinine 0.80 Estimated GFR > 60.0 BUN/Creatinine Ratio 21.3 Glucose 145 H Lactate Calcium 9.8 Phosphorus 3.6 Magnesium 2.0 Total Bilirubin 0.2 AST 15 ALT 20 Alkaline Phosphatase 54 Total Protein 7.2 Albumin 4.4 Globulin 2.8 Albumin/Globulin Ratio 1.6 Lipase 81 Urine Color Urine Appearance Urine pH Ur Specific [place] Urine Protein Urine Glucose (UA) Urine Ketones Urine Occult Blood Urine Nitrate Urine Bilirubin Urine Urobilinogen Ur Leukocyte Esterase Urine RBC Urine WBC Amorphous Sediment Urine Bacteria Ur Culture Indicated? Micro UA Comment 01/18/18 01/18/18 07:40 10:12 WBC RBC Hgb Hct MCV MCH MCHC RDW Plt Count Neut % (Auto) Lymph % (Auto) Weber % (Auto) Eos % (Auto) Baso % (Auto) Neut # (Auto) Sodium Potassium Chloride Carbon Dioxide BUN Creatinine Estimated GFR BUN/Creatinine Ratio Glucose Lactate 1.3 Calcium Phosphorus Magnesium Total Bilirubin AST ALT Alkaline Phosphatase Total Protein Albumin Globulin Albumin/Globulin Ratio Lipase Urine Color Yellow Urine Appearance Clear Urine pH 5.5 Ur Specific [place] 1.010 Urine Protein Negative Urine Glucose (UA) Negative Urine Ketones Negative Urine Occult Blood 3+ H Urine Nitrate Negative Urine Bilirubin Negative Urine Urobilinogen 0.2 Ur Leukocyte Esterase Negative Urine RBC 5-10/hpf H Urine WBC None seen Amorphous Sediment 1+ Urine Bacteria None seen Ur Culture Indicated? Cult not indicated Micro UA Comment Not Reportable Assessment & Plan Plan: Assessment/Plan Narrative: IMPRESSION AND PLAN SBO; HIGH GRADE PER IMAGING; SURG IS ON THE CASE; NPO FOR NOW; NGT IN PLACE; CONT IVF FOR NOW; ADDITIONAL MANAGEMENT INDICATED HX OF TAKOTSUBO CMP; WILL REPEAT ECHO TODAY TO DUE REPORTED SX OF DIZZINESS WITHOUT SYNCOPE AND SOB/HENDRICKS; WATCH FOR DECOMPENSATED HF LEUKOCYTOSIS; CONSIDER ACUTE REACTANT TO IMFLMTR PROCESS; NO INFECTION SUSPECTED HOWEVER, WOULD CONT ON FLAGYL AND CIPRO FOR NOW; DAILY CBC HYPERGLYCEMIA; POSS DM VS PREDM; OUTPATIENT W/U; ISS WHILE IN HOUSE POSS MGUS PER HX; OUTPATIENT MANAGEMENT OSTEOPOROSIS PER HX; HOME MEDS ONCE INDICATED GERD/PUD PER HX; ON PPI IV WHILE NPO DURATION OF STAY : 2-3 DAYS - Time Spent With Patient Time with patient: Greater than 35 minutes Quality VTE Deep Vein Thrombosis/Pulmonary Embolism Present on Admission: No
--- NOTE | 2018-01-18 12:52 | PC.NURSE ---
Day shift: Attempted [address] NG. Pt gaged and wretched up fluid. RN Sheila thought tube was going into the lungs. Suspect it needs to be done under IR.
--- NOTE | 2018-01-18 12:55 | PT.IIE ---
Addendum entered by Magaly Brannon PT 01/18/18 18:01: Original Note: Surgical History (Last Updated 01/18/18 @ 12:29 by Shelby Cornejo DO) H/O hysterectomy for benign disease (Acute) History of cataract removal with insertion of prosthetic lens Status post tubal ligation Medical History (Last Updated 01/18/18 @ 12:29 by Shelby Cornejo DO) HTN (hypertension) (Acute) Takotsubo cardiomyopathy (Acute) Physical Therapy Inpatient Evaluation/Re-Eval M1 PT/OT-IP Prior Functional Status Start: 01/18/18 12:26 Freq: NEEDED Status: Active Protocol: Document 01/18/18 12:00 HH (Rec: 01/18/18 12:55 [email or web address]) Medical Review Prior Functional Status Medical History Reviewed Yes Communication No deficits noted Mobility and Gait Pt was an independent ambulator at home and community without any assistance and assistive device prior to admission based on family report. Activities of Daily Living and IADL's Pt was independent for ADLs and IADLs prior to admission based on family report. 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 Social History Household Members spouse Living Arrangements House Number of Floors (Floors) One Floor Number of Stairs To Enter/Railing? 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 Pt's family reports pt is independent for ADLs and IDALs without using AD. Pt drives as well. M2 PT-IP Current Condition Start: 01/18/18 12:26 Freq: NEEDED Status: Active Protocol: Document 01/18/18 12:00 HH (Rec: 01/18/18 12:55 [email or web address]) Physical Therapy Current Condition Current Condition Evaluation Date 01/18/18 Treatment Diagnosis Acute abdominal pain; generalized muscle weakness; difficulty in walking Onset Date 01/18/18 Precautions Other Precautions Pt is now on NG tube for feeding and drug administration. M3 PT-IP Subjective Start: 01/18/18 12:26 Freq: NEEDED Status: Active Protocol: Document 01/18/18 12:00 (Rec: 01/18/18 12:55 [id number]) Subjective Physical Therapy Visit Type Type Initial Evaluation Visit Start Time 12:00 Visit Stop Time 12:30 Total Visit Minutes 30 Notes Pt and pt's family agreeable to PT. Pt denies of any pain at this point. Pt received NG tube since this morning for feeding and drug administration. Physical Therapy Visit Comments Patient Comments Pt denies of any pain but she stated I feel nausea sometimes possibly due to the medication. Pt's family and CRISTINA Condon reports patient did bedside commode transfer with SBA with no AD early this morning. Patient Goals To go home without c/o abdominal pain Therapy Pain Assessment Pain Present Pain Present Denied Pain M4 PT-IP Mobility and Gait Start: 01/18/18 12:26 Freq: NEEDED Status: Active Protocol: Document 01/18/18 12:00 HH (Rec: 01/18/18 12:55 [email or web address]) PT-Bed Mobility Assessment Rolling Level of Assist Standby Assistance Supine to Sit Supine to Sit Standby Assistance Sit to Supine Sit to Supine Standby Assistance Scooting Scooting to Edge of Bed Standby Assistance PT-Transfer Assessment Sit to and From Stand Sit to and from Stand Standby Assistance Equipment Transfer Assistive Device Gait Belt Transfers Transfer Destination Bed Bedside Commode Transfer Ability Level of Assist Standby Assistance Comments Mobility Comments Transfer activities did not attempt due to recent NG tube placement and pt's c/o fatigue . Pt's family and CRISTINA Condon stated pt is able to amb from bed to bedside commode for toileting with CGA/ SBA without AD. Pt's spouse reports pt is getting better and alert since this morning. And she is able to get to the commode pretty easily. Gait Assessment Gait Gait Assistance Required: Standby Assistance Distance (Feet) 4 Assistive Devices Assistive Device Gait Belt Gait Deviations General Gait Pattern Decreased Stride Length Decreased Feet Clearance Factors Limiting Gait Function Factors Limiting Gait Function Decreased Activity Tolerance Decreased Strength Difficulty Following Directions Comments Gait Comments Amb activities did not attempt due to recent NG tube placement and pt's c/o fatigue . Pt's family and CRISTINA Condon stated pt is able to amb from bed to bedside commode for toileting with CGA/ SBA without AD. Pt's spouse reports pt is getting better and alert since this morning. And she is able to get to the commode pretty easily. Stair Climbing Assessment Comments Stair Climbing Comments did not attempt PT-Balance Assessment Sitting Balance and Reactions Static Sitting Balance Ability Normal Dynamic Sitting Balance Ability Normal Standing Balance and Reactions Static Standing Balance Ability Normal Dynamic Standing Balance Ability Normal M5 PT-IP Objective Assessments Start: 01/18/18 12:26 Freq: NEEDED Status: Active Protocol: Document 01/18/18 12:00 (Rec: 01/18/18 12:55 [email or web address]) Orientation Orientation/Cognition Level of Alertness Alert Comments Pt is now on NG tube for drug administration and feeding since this morning. Pt's family from bedside reports pt has been feeling dizzy since NG tube placement. Upon assessment, pt is able to follow commands with slight delay in responses. Gross Range of Motion Upper Extremity ROM Assessment Within Functional Limits Lower Extremity ROM Assessment Within Functional Limits Strength Upper Extremity Strength Assessment Within Functional Limits Lower Extremity Strength Assessment Within Functional Limits Comments Strength Comments WFLs for B UEs and LEs Coordination Assessment Gross Coordination Gross Coordination WNL Sensation Assessment Sensation Gross Sensation WNL Light Touch Intact Proprioception (Position) Intact Muscle Tone Muscle Tone WNL Yes M6 PT-IP Treatment Start: 01/18/18 12:26 Freq: NEEDED Status: Active Protocol: Document 01/18/18 12:00 (Rec: 01/18/18 12:55 [email or web address]) Physical Therapy Treatment Exercises Exercises Ankle Pumps Gluteal Sets Quad Sets Heel Slides Straight Leg Raises M7 PT-IP Assessment and Plan Start: 01/18/18 12:26 Freq: NEEDED Status: Active Protocol: Document 01/18/18 12:00 HH (Rec: 01/18/18 12:55 [email or web address]) PT Summary Assessment and Plan Potential Rehabilitation Potential Excellent Status of Condition at Evaluation Stable Summary Impairments Pain ROM Bed Mobility Transfers Gait Activity Tolerance Progress Towards Goals Progressing Toward Goals Assessment Summary Pt's family at bedside when pt was seen today. Pt received NG tube placement for feeding and drug administration at 11am today who reports I feel a bit weak and dizzy at this point. upon PT assessment. Pt's family reports pt did bedside commode transfer this morning with them and nursing staff without AD and SBA/ CGA. Pt also denies of any abdominal pain upon assessment and was able to demonstrate WFLs gross ROM and strength for B UEs & LEs. Pt has excellent rehab potential to reach PLOF along with her support family. Recommend D/C to home after medically stable. Goals Bed Mobility Goal Independent Transfer Goal Independent Gait Goal Independent Gait Distance >200 Other Goals to negotiate 3 steps with the use of 1 handrail x 3 set. Days to Meet Goals 3 Frequency of Treatment Frequency Of Treatment Twice a Day Treatment Plan Physical Therapy Treatment Plan Bed Mobility Training Transfer Training Gait Training Therapeutic Exercise Balance Retraining Discharge Planning Other Recommendations and Next Treatment transfer training; bed Focus mobility; gait training; Recommendations To Nursing Amount of Assist Needed Standby Assistance 1 Person Assist Discharge Recommendations PT Discharge Recommendations Home
[2018-01-18] MEDS: PANTOPRAZOLE 40 MG VIAL IV (13:10)
[2018-01-18] MEDS: LORazepam 2 MG/ML SYRINGE 0.5 MG IV (13:10)
[2018-01-18 13:25] LABS: Hemoglobin A1C% w Est Avg Glu 6.1 % (4.0-6.0)
--- NOTE | 2018-01-18 14:34 | DI.RAD.S_ITS ---
PROCEDURE: XR CHEST 1V INDICATIONS: NG tube placement TECHNIQUE: One view of the chest was acquired. COMPARISON: [facility], CR, XR CHEST 1V, 01/18/2018, 12:05. FINDINGS: Surgical changes and devices: There is interval repositioning of the nasogastric tube with the tip demonstrated in the distal esophagus. Lungs and pleura: No pleural effusions or pneumothorax. Lungs are clear. Mediastinum: Mediastinal contours appear normal. Heart size is normal. Bones and chest wall: No suspicious bony lesions. Overlying soft tissues appear unremarkable. IMPRESSION: 1. Nasogastric tube in position with the tip demonstrated in the distal esophagus. Recommend further advancement by approximately 10 cm to ensure passage of the side port into the stomach. Dictated by: Basilio Linton M.D. on 01/18/2018 at 14:54 Approved by: Basilio Linton M.D. on 01/18/2018 at 14:56
[2018-01-18] MEDS: metroNIDAZOLE 500 MG/100 ML PIGGYBACK 100 MG IV ×2 (14:41→21:22)
--- NOTE | 2018-01-18 16:00 | OT.IP.TRT ---
Occupational Therapy Treatment Note M3 OT- IP Subjective and Pain Start: 01/18/18 16:44 Freq: Status: Active Protocol: Document 01/18/18 1600 PJM (Rec: 01/18/18 16:45 [id number] [email or web address]) OT- Subjective Occupational Therapy Visit Type Type Administrative Note Visit Start Time 12:15 Notes OT referral received. Attempted to see pt , but she was having multiple attempts to get NG suction placed in AM and then fatigued and unable to be taken off wall suction in PM. Will attempt again in AM as medical status permits. No charge.
[2018-01-18] MEDS: FLEETS ENEMA PR ×2 (17:55→21:23)
--- NOTE | 2018-01-18 17:58 | PT.IPTN ---
Physical Therapy Treatment Note M2 PT-IP Current Condition Start: 01/18/18 12:26 Freq: NEEDED Status: Active Protocol: Document 01/18/18 12:00 HH (Rec: 01/18/18 12:55 HH [email or web address]) Physical Therapy Current Condition Current Condition Evaluation Date 01/18/18 Treatment Diagnosis Acute abdominal pain; generalized muscle weakness; difficulty in walking Onset Date 01/18/18 Precautions Other Precautions Pt is now on NG tube for feeding and drug administration. M3 PT-IP Subjective Start: 01/18/18 12:26 Freq: NEEDED Status: Active Protocol: Document 01/18/18 16:45 HH (Rec: 01/18/18 17:57 [email or web address]) Subjective Physical Therapy Visit Type Type Treatment Note Visit Start Time 16:45 Visit Stop Time 17:20 Notes Pt appears alert and oriented with family members in beside upon tx session. Pt denies of abdominal pain and agreeable to mobilize with PT. Pt currently has a NG suctioning tube connected to wall. Mobilize pt accordingly. Physical Therapy Visit Comments Patient Comments Pt's spouse reports She looks better and more alert now compared to this morning. Pt states I feel weak but i want to get out of bed. Therapy Pain Assessment Pain Present Pain Present Denied Pain M4 PT-IP Mobility and Gait Start: 01/18/18 12:26 Freq: NEEDED Status: Active Protocol: Document 01/18/18 16:45 HH (Rec: 01/18/18 17:57 [email or web address]) PT-Bed Mobility Assessment Rolling Type of Rolling Bilateral Level of Assist Standby Assistance Supine to Sit Supine to Sit Standby Assistance Sit to Supine Sit to Supine Standby Assistance Scooting Scooting to Edge of Bed Standby Assistance PT-Transfer Assessment Sit to and From Stand Sit to and from Stand Standby Assistance Use of Upper Extremities Equipment Transfer Assistive Device Bed Rail Front Wheeled Walker Transfers Transfer Destination Bed Chair Bedside Commode Transfer Ability Level of Assist Standby Assistance Comments Mobility Comments Pt BP remains 120-137/ 60-78 HR 80-95 during the entire tx session. Pt performs supine to sit from elevated bed 30 degrees with bedrails SBA; sit <> stand x 5 with SBA FWW; commode transfer with FWW SBA x 2. Pt did not c/o acute distress and abdominal pain during tx session. Pt is able to demosntrate safe transfer with the use of FWW and bedrails for support and push off. Gait Assessment Gait Gait Assistance Required: Standby Assistance Assistive Devices Assistive Device Gait Belt Front Wheeled Walker Gait Deviations General Gait Pattern Decreased Stride Length Decreased Feet Clearance Factors Limiting Gait Function Factors Limiting Gait Function Decreased Activity Tolerance Decreased Strength Poor Balance Comments Gait Comments Pt amb from EOB to commode (4 feet away) with FWW SBA 4 feet x 8. Pt demonstrates decrease in stride length and feet clearance. I walked slower compared to when i was at home. Pt also attempt to amb without AD but with CGA x 4 feet x 2 but demonstrates further decrease in stride length and feet clearance. However, pt did not show signs of LOB and acute distress during tx session. Stair Climbing Assessment Comments Stair Climbing Comments did not attempt PT-Balance Assessment Sitting Balance and Reactions Static Sitting Balance Ability Normal Dynamic Sitting Balance Ability Normal Standing Balance and Reactions Static Standing Balance Ability Good Dynamic Standing Balance Ability Good Comments Other Balance Tests/Deviations/Treatment Excessive posterior and : anterior sway during dynamic reach across midline with UE without support from FWW. M5 PT-IP Objective Assessments Start: 01/18/18 12:26 Freq: NEEDED Status: Active Protocol: Document 01/18/18 16:45 (Rec: 01/18/18 17:57 [id number]) Orientation Orientation/Cognition Level of Alertness Alert Orientation Name Age Birthday Month Date Year Day of Week Place Situation Gross Range of Motion Upper Extremity ROM Assessment Within Functional Limits Lower Extremity ROM Assessment Within Functional Limits Strength Upper Extremity Strength Assessment Within Functional Limits Lower Extremity Strength Assessment Within Functional Limits M6 PT-IP Treatment Start: 01/18/18 12:26 Freq: NEEDED Status: Active Protocol: Document 01/18/18 16:45 (Rec: 01/18/18 17:57 [email or web address]) Physical Therapy Treatment Exercises Exercises Ankle Pumps Gluteal Sets Quad Sets Heel Slides Straight Leg Raises Education Education Provided Safety Other Treatments Other Treatment Performed seated leg press against PT in bed. seated leg press with red thera band. M7 PT-IP Assessment and Plan Start: 01/18/18 12:26 Freq: NEEDED Status: Active Protocol: Document 01/18/18 16:45 (Rec: [facility]18[facility]18 17:[email or web address] PT Summary Assessment and Plan Potential Rehabilitation Potential Excellent Status of Condition at Evaluation Evolving Summary Impairments Strength Balance Bed Mobility Transfers Gait Activity Tolerance Progress Towards Goals Progressing Toward Goals Assessment Summary Pt appears increased alertness and orientation since this morning possibly due to NG placement. Pt is now able to amb >20 feet with FWW SBA and transfer to bedside commode for toileting with FWW SBA. Pt is medically evolving due to her diagnosis and medical procedure. Pt has a very good rehab potential due to her high PLOF and supportive family. Pt cont requires skilled therapy to address her overall functional deconditioning and decrease in strength for functional activities prior to d/c to home. Goals Bed Mobility Goal Independent Transfer Goal Independent Gait Goal Independent Gait Distance 300 Days to Meet Goals 3 Frequency of Treatment Frequency Of Treatment Once a Day Treatment Plan Physical Therapy Treatment Plan Bed Mobility Training Transfer Training Gait Training Therapeutic Exercise Balance Retraining Discharge Planning Other Recommendations and Next Treatment gait training; transfer Focus training; bed mobility; stair training. Recommendations To Nursing Amount of Assist Needed Standby Assistance 1 Person Assist Discharge Recommendations PT Discharge Recommendations Home
--- NOTE | 2018-01-18 18:04 | PT.IIE ---
Surgical History (Last Updated 01/18/18 @ 12:29 by Shelby Cornejo DO) H/O hysterectomy for benign disease (Acute) History of cataract removal with insertion of prosthetic lens Status post tubal ligation Medical History (Last Updated 01/18/18 @ 12:29 by Shelby Cornejo DO) HTN (hypertension) (Acute) Takotsubo cardiomyopathy (Acute) Physical Therapy Inpatient Evaluation/Re-Eval M1 PT/OT-IP Prior Functional Status Start: 01/18/18 12:26 Freq: NEEDED Status: Active Protocol: Document 01/18/18 12:00 HH (Rec: 01/18/18 12:55 [email or web address]) Medical Review Prior Functional Status Medical History Reviewed Yes Communication No deficits noted Mobility and Gait Pt was an independent ambulator at home and community without any assistance and assistive device prior to admission based on family report. Activities of Daily Living and IADL's Pt was independent for ADLs and IADLs prior to admission based on family report. 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 Social History Household Members spouse Living Arrangements House Number of Floors (Floors) One Floor Number of Stairs To Enter/Railing? 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 Pt's family reports pt is independent for ADLs and IDALs without using AD. Pt drives as well. M2 PT-IP Current Condition Start: 01/18/18 12:26 Freq: NEEDED Status: Active Protocol: Document 01/18/18 12:00 HH (Rec: 01/18/18 12:55 [email or web address]) Physical Therapy Current Condition Current Condition Evaluation Date 01/18/18 Treatment Diagnosis Acute abdominal pain; generalized muscle weakness; difficulty in walking Onset Date 01/18/18 Precautions Other Precautions Pt is now on NG tube for feeding and drug administration. M3 PT-IP Subjective Start: 01/18/18 12:26 Freq: NEEDED Status: Active Protocol: Document 01/18/18 16:45 HH (Rec: 01/18/18 17:57 [email or web address]) Subjective Physical Therapy Visit Type Type Treatment Note Visit Start Time 16:45 Visit Stop Time 17:20 Notes Pt appears alert and oriented with family members in beside upon tx session. Pt denies of abdominal pain and agreeable to mobilize with PT. Pt currently has a NG suctioning tube connected to wall. Mobilize pt accordingly. Physical Therapy Visit Comments Patient Comments Pt's spouse reports She looks better and more alert now compared to this morning. Pt states I feel weak but i want to get out of bed. Therapy Pain Assessment Pain Present Pain Present Denied Pain M4 PT-IP Mobility and Gait Start: 01/18/18 12:26 Freq: NEEDED Status: Active Protocol: Document 01/18/18 16:45 HH (Rec: 01/18/18 17:57 [email or web address]) PT-Bed Mobility Assessment Rolling Type of Rolling Bilateral Level of Assist Standby Assistance Supine to Sit Supine to Sit Standby Assistance Sit to Supine Sit to Supine Standby Assistance Scooting Scooting to Edge of Bed Standby Assistance PT-Transfer Assessment Sit to and From Stand Sit to and from Stand Standby Assistance Use of Upper Extremities Equipment Transfer Assistive Device Bed Rail Front Wheeled Walker Transfers Transfer Destination Bed Chair Bedside Commode Transfer Ability Level of Assist Standby Assistance Comments Mobility Comments Pt BP remains 120-137/ 60-78 HR 80-95 during the entire tx session. Pt performs supine to sit from elevated bed 30 degrees with bedrails SBA; sit <> stand x 5 with SBA FWW; commode transfer with FWW SBA x 2. Pt did not c/o acute distress and abdominal pain during tx session. Pt is able to demosntrate safe transfer with the use of FWW and bedrails for support and push off. Gait Assessment Gait Gait Assistance Required: Standby Assistance Assistive Devices Assistive Device Gait Belt Front Wheeled Walker Gait Deviations General Gait Pattern Decreased Stride Length Decreased Feet Clearance Factors Limiting Gait Function Factors Limiting Gait Function Decreased Activity Tolerance Decreased Strength Poor Balance Comments Gait Comments Pt amb from EOB to commode (4 feet away) with FWW SBA 4 feet x 8. Pt demonstrates decrease in stride length and feet clearance. I walked slower compared to when i was at home. Pt also attempt to amb without AD but with CGA x 4 feet x 2 but demonstrates further decrease in stride length and feet clearance. However, pt did not show signs of LOB and acute distress during tx session. Stair Climbing Assessment Comments Stair Climbing Comments did not attempt PT-Balance Assessment Sitting Balance and Reactions Static Sitting Balance Ability Normal Dynamic Sitting Balance Ability Normal Standing Balance and Reactions Static Standing Balance Ability Good Dynamic Standing Balance Ability Good Comments Other Balance Tests/Deviations/Treatment Excessive posterior and : anterior sway during dynamic reach across midline with UE without support from FWW. M5 PT-IP Objective Assessments Start: 01/18/18 12:26 Freq: NEEDED Status: Active Protocol: Document 01/18/18 16:45 (Rec: 01/18/18 17:57 [email or web address] Orientation Orientation/Cognition Level of Alertness Alert Orientation Name Age Birthday Month Date Year Day of Week Place Situation Gross Range of Motion Upper Extremity ROM Assessment Within Functional Limits Lower Extremity ROM Assessment Within Functional Limits Strength Upper Extremity Strength Assessment Within Functional Limits Lower Extremity Strength Assessment Within Functional Limits M6 PT-IP Treatment Start: 01/18/18 12:26 Freq: NEEDED Status: Active Protocol: Document 01/18/18 16:45 (Rec: 01/18/18 17:57 [email or web address] Physical Therapy Treatment Exercises Exercises Ankle Pumps Gluteal Sets Quad Sets Heel Slides Straight Leg Raises Education Education Provided Safety Other Treatments Other Treatment Performed seated leg press against PT in bed. seated leg press with red thera band. M7 PT-IP Assessment and Plan Start: 01/18/18 12:26 Freq: NEEDED Status: Active Protocol: Document 01/18/18 16:45 (Rec: 01/18/18 17:57 [email or web address] PT Summary Assessment and Plan Potential Rehabilitation Potential Excellent Status of Condition at Evaluation Evolving Summary Impairments Strength Balance Bed Mobility Transfers Gait Activity Tolerance Progress Towards Goals Progressing Toward Goals Assessment Summary Pt appears increased alertness and orientation since this morning possibly due to NG placement. Pt is now able to amb >20 feet with FWW SBA and transfer to bedside commode for toileting with FWW SBA. Pt is medically evolving due to her diagnosis and medical procedure. Pt has a very good rehab potential due to her high PLOF and supportive family. Pt cont requires skilled therapy to address her overall functional deconditioning and decrease in strength for functional activities prior to d/c to home. Goals Bed Mobility Goal Independent Transfer Goal Independent Gait Goal Independent Gait Distance 300 Days to Meet Goals 3 Frequency of Treatment Frequency Of Treatment Once a Day Treatment Plan Physical Therapy Treatment Plan Bed Mobility Training Transfer Training Gait Training Therapeutic Exercise Balance Retraining Discharge Planning Other Recommendations and Next Treatment gait training; transfer Focus training; bed mobility; stair training. Recommendations To Nursing Amount of Assist Needed Standby Assistance 1 Person Assist Discharge Recommendations PT Discharge Recommendations Home
[2018-01-18] MEDS: CIPROFLOXACIN 400 MG/200 ML PIGGYBACK 200 MG IV (18:37)
[2018-01-18] MEDS: MORPHINE 2 MG/ML INJ IV (19:57)
[2018-01-19] VITALS (8 sets, daily range): BP systolic 104–134; BP diastolic 53–72; PULSE 75–88; RESP 15–18; TEMP 36.4–37; O2SAT 96–98
[2018-01-19] MEDS: FLEETS ENEMA PR (00:54)
--- NOTE | 2018-01-19 02:04 | PC.NURSE ---
Addendum entered by Sarai Dean R.N. 01/19/18 07:18: Patient had 2 more liquid dark brown bowel movements this morning after 0600. Still no pain, no nausea, same mild distention, positive bowel tones. Patient is up and walking the halls. Original Note: Patient sneezed out her NGT at 0130 while being on the commode having a bowel movement after an enema. I spoke to provider Eusebio about reinsertion of NGT and she instructed it was okay to leave out the for tonight bc: patient is not nauseous, no pain, present bowel tones, positive for gas and a BM tonight, stomach is just mildly distended, no burping or belching. Patient also very reluctant to have anyone reinsert NGT because she said she only has about 30% of her stomach left after a gastric sleeve and there was much difficulty inserting it originally. I informed patient i will be frequently checking in on her throughout the night for any changes in condition and continually assessing her for any urgent need of reinsertion of the NGT tonight.
[2018-01-19] MEDS: metroNIDAZOLE 500 MG/100 ML PIGGYBACK 100 MG IV ×3 (05:40→22:44)
[2018-01-19 06:15] LABS: Add Manual Diff / Slide Review NO; Basophils Percent Auto 0.6 % (0-2); Eosinophils Percent Auto 1.5 % (2-4); Hematocrit 30.5 % (36-46); Hemoglobin 10.4 g/dL (12.0-16.0); Lymphocytes Percent Auto 20.1 % (25-40); Mean Corpuscular HGB Conc 34.1 % (30-36); Mean Corpuscular Volume 91.1 fL (80-100); Monocytes Percent Auto 12.4 % (3-14); Neutrophils Absolute Auto 4600 /uL (3000-5900); Neutrophils Percent Auto 65.4 % (50-75); Platelet Count 281 X10^3/uL (150-400); Red Blood Cell Count 3.35 X10^6/uL (4.0-5.2); Red Cell Distribution Width 13.4 % (11.6-14.8)
[2018-01-19 06:24] LABS: Alanine Aminotransferase 20 IU/L (9-52); Albumin 3.3 g/dL (3.5-5.0); Albumin Globulin Ratio 1.4 (1.0-2.8); Alkaline Phosphatase 42 U/L (38-126); Aspartate Aminotransferase 11 IU/L (14-36); BUN Creatinine Ratio 13.3 (6-22); Bilirubin Total 0.3 mg/dL (0.2-1.3); Blood Urea Nitrogen 8 mg/dL (7-17); Calcium 8.3 mg/dL (8.4-10.2); Carbon Dioxide 27 mmol/L (22-32); Chloride 106 mmol/L (98-107); Estimated Glomerular Filt Rate > 60.0 mL/min (>60); Globulin 2.4 g/dL (1.7-4.1); Glucose 167 mg/dL (80-110); HEMOLYSIS < 15 (0-50); Potassium 3.2 mmol/L (3.4-5.1); Sodium 142 mmol/L (137-145); Total Protein 5.7 g/dL (6.3-8.2)
[2018-01-19] MEDS: CIPROFLOXACIN 400 MG/200 ML PIGGYBACK 200 MG IV (06:55)
[2018-01-19] MEDS: LORazepam 2 MG/ML SYRINGE 0.5 MG IV (08:51)
--- NOTE | 2018-01-19 09:45 | DI.RAD.S_ITS ---
PROCEDURE: XR ABDOMEN MIN 2V INDICATIONS: SBO TECHNIQUE: 2 views of the abdomen were acquired. COMPARISON: [facility], CT, CT ABDOMEN PELVIS W CON, 01/18/2018, 5:58. [facility], CR, XR CHEST 1V, 01/18/2018, 14:37. FINDINGS: Surgical changes and devices: None. Bowel: No pneumoperitoneum. Dilated central and left-sided small bowel loops measuring up to 5.4 similar in diameter. There are scattered air-fluid levels. Soft tissues: No masses; visualized solid organ contours appear normal in size. Pelvic ossification may indicate uterine fibroids although technically nonspecific Bones: No suspicious bony abnormalities. IMPRESSION: Small bowel obstruction as before. No definite interval change since CT dated yesterday. Dictated by: Neville Silva M.D. on 01/19/2018 at 16:01 Approved by: Neville Silva M.D. on 01/19/2018 at 16:03
[2018-01-19] MEDS: KCL 40 MEQ IN NS 1,000 ML 100 MEQ IV (10:05)
[2018-01-19] MEDS: PANTOPRAZOLE 40 MG VIAL IV (10:08)
--- NOTE | 2018-01-19 10:32 | P.DS_ITS ---
History of Present Illness Chief complaint: severe abdominal pain Narrative: - PATIENT WITH AN EXTENSIVE ABD SURGERY HX WHICH INCLUDED HYSTERECTOMY, PARTIAL COLECTOMY/ RESECTION, - CAME TO THE ED WITH ABD PAIN WHICH SHE REPORTED BEING SHARP AND DIFFUSED IN NATURE - THIS IS IMPROVED NOW ON PAIN MEDS; - REPORTED SOME NAUSEA BUT NO VOMITING - SHE DID CONFIRMED SHE WAS DC WITH TAKOTSUBO CMP A WHILE BACK BUT DOES NOT REMEMBER HER EF. - SHE ASO REPORTED THAT LATELY SHE HAS BEEN HAVING SOME FEELING OF WEAKNESS AND SLEEPINESS WHICH ARE UNUSUAL - DENIED CP/ORTHOPNEA/SYNCOPE. REPORTED SOB/HENDRICKS. NO OTHER COMPLAINTS FAMILY AT BEDSIDE Discharge Providers Date of admission: 01/18/18 07:28 Primary care physician: Tony Garcia MD Consults: 01/18/18 07:23 Consult to Discharge Planning Routine Comment: Consult to Occupational Therapy Evaluate & Treat Comment: Physician Instructions: Evaluate and treat Consult to Physical Therapy Evaluate & Treat Comment: Physician Instructions: Evaluate and Treat 01/18/18 09:58 Consult to Physician Routine Comment: Consulting Provider: Dima Mckinney Reason for consultation: SBO Has provider been notified: Yes Discharge provider: Shelby Cornejo DO Exam Vital Signs (past 8 hours): - 01/19/18 03:40 01/19/18 07:39 01/19/18 07:48 Temperature 98.3 F 98.1 F Pulse Rate 82 76 Respiratory Rate 15 16 Blood Pressure 104/53 L 123/63 Pulse Oximetry 97 97 98 Oxygen Delivery Method Room Air Oxygen Flow Rate 0 Objective Labs Result Diagrams: 01/19/18 05:42 01/19/18 05:42 Labs: Laboratory Results - last 24 hr 01/18/18 01/18/18 01/19/18 04:30 10:12 05:42 WBC RBC Hgb Hct MCV MCH MCHC RDW Plt Count Neut % (Auto) Lymph % (Auto) [place] % (Auto) Eos % (Auto) Baso % (Auto) Neut # (Auto) Sodium 142 Potassium 3.2 L Chloride 106 Carbon Dioxide 27 BUN 8 Creatinine 0.60 Estimated GFR > 60.0 BUN/Creatinine Ratio 13.3 Glucose 167 H Hemoglobin A1c 6.1 H Calcium 8.3 L Total Bilirubin 0.3 AST 11 L ALT 20 Alkaline Phosphatase 42 Total Protein 5.7 L Albumin 3.3 L Globulin 2.4 Albumin/Globulin Ratio 1.4 Urine Color Yellow Urine Appearance Clear Urine pH 5.5 Ur Specific [place] 1.010 Urine Protein Negative Urine Glucose (UA) Negative Urine Ketones Negative Urine Occult Blood 3+ H Urine Nitrate Negative Urine Bilirubin Negative Urine Urobilinogen 0.2 Ur Leukocyte Esterase Negative Urine RBC 5-10/hpf H Urine WBC None seen Amorphous Sediment 1+ Urine Bacteria None seen Ur Culture Indicated? Cult not indicated Micro UA Comment Not Reportable 01/19/18 05:42 WBC 7.0 RBC 3.35 L Hgb 10.4 L Hct 30.5 L MCV 91.1 MCH 31.0 MCHC 34.1 RDW 13.4 Plt Count 281 Neut % (Auto) 65.4 Lymph % (Auto) 20.1 L [place] % (Auto) 12.4 Eos % (Auto) 1.5 L Baso % (Auto) 0.6 Neut # (Auto) 4600 Sodium Potassium Chloride Carbon Dioxide BUN Creatinine Estimated GFR BUN/Creatinine Ratio Glucose Hemoglobin A1c Calcium Total Bilirubin AST ALT Alkaline Phosphatase Total Protein Albumin Globulin Albumin/Globulin Ratio Urine Color Urine Appearance Urine pH Ur Specific [place] Urine Protein Urine Glucose (UA) Urine Ketones Urine Occult Blood Urine Nitrate Urine Bilirubin Urine Urobilinogen Ur Leukocyte Esterase Urine RBC Urine WBC Amorphous Sediment Urine Bacteria Ur Culture Indicated? Micro UA Comment Discharge Plan Discharge Plan Patient Disposition: Home Discharge comment: ACT HAZEL CARDIAC HIGH FIBER/SOFT DIET F/U WITH PCP 3-10 DAYS Discharge Med Rec/Prescriptions Prescriptions: New metronidazole [Flagyl] 500 mg tablet 500 mg PO TID 5 Days Qty: 15 RF: 0 polyethylene glycol 3350 [Miralax] 17 gram/dose powder 17 gram PO DAILY Qty: 850 RF: 0 Continue Probiotic 1 cap PO 1-2XD Qty: 0 RF: 0 ginkgo biloba 40 mg Capsule 120 mg PO DAILY Qty: 0 RF: 0 vitamin E 100 unit Capsule 1 cap PO DAILY Qty: 0 RF: 0 cholecalciferol (vitamin D3) 5,000 UNIT capsule 5,000 unit PO DAILY Qty: 0 RF: 0 biotin 5 mg Capsule 5 mg PO DAILY RF: 0 temazepam 15 mg Capsule 15 - 30 mg PO BEDTIME PRN (Reason: Sleep) RF: 0 ascorbic acid (vitamin C) 500 mg Tablet,Chewable 1,500 mg PO DAILY RF: 0 bisacodyl 5 mg Tablet,Delayed Release (Dr/Ec) 5 mg PO BEDTIME RF: 0 metoprolol succinate 25 mg Tablet Extended Release 24 Hr 12.5 mg PO BID RF: 0 ipratropium bromide 42 mcg (0.06 %) [place],Non-Aerosol 2 spray INTRANASAL BID PRN (Reason: rhinitis) RF: 0 omeprazole magnesium [Prilosec OTC] 20 mg Tablet,Delayed Release (Dr/Ec) 20 mg PO DAILY RF: 0 cyanocobalamin (vitamin B-12) [Vitamin B-12] 5,000 mcg Tablet, Sublingual 5,000 mcg PO Q OTHER DAY RF: 0 CoQ-10 200 mg capsule 200 mg PO DAILY RF: 0 Joint Health 1 tab PO DAILY RF: 0 Stool Softener 1 cap PO DAILY PRN (Reason: Constipation) RF: 0 bupropion HCl 300 MG tablet extended release 24 hr 300 mg PO DAILY RF: 0 zoledronic [id number] [Reclast] 5 mg/100 mL Piggyback 5 mg IV DIRECTED RF: 0 Provider Discharge Instructions Diet: Low-fat and Low-cholesterol Diet comment: HIGH FIBER Skin/Wound/Dressing Care Report to your healthcare provider any signs of infection, such as:: chills, fever, night sweats, increased pain, unusual drainage and unusual redness Discharge Data Primary Care Provider: Tony Garcia Attending Provider: Shelby Cornejo Admit Date/Time: 01/18/18 07:28 Quality VTE Deep Vein Thrombosis/Pulmonary Embolism Present on Admission: No
--- NOTE | 2018-01-19 11:05 | CM.DANOTE ---
Discharge Planning/Care Management DCP: assessment: case received, EMR reviewed and met this morning with pt. Multiple family members were in room including spouse Sahra. Introduced self and role. Pt gave permission for discussion to proceed with family in room. Pt is a 77 year old female who admitted yesterday to care of hospitalist team. H&P indicates surgery is consulting but this consult is not yet available in EMR. PCP: Dr. Jose Garcia Payer: [facility] ADV Pt being treated for a bowel obstruction in setting of hx abdominal surgery and gastic sleeve procedure. NG to suction came out accidentally early this morning. Pt is expected to go to clear liquids today and at time of this meeting she had not had anything. Dr. Gutierrez Bautista discussed case in Team Rounds this morning. He anticipated that pt would do well with her liquid diet and would be able to d/c to home later today. 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 Her extended family and spouse are very supportive. P: expect home when bowel function has returned. Unclear if this will be today but note at this time there is a d/c order. CM Discharge Assessment Start: 01/19/18 11:03 Freq: Status: Active Protocol: Document 01/19/18 11:04 ITV (Rec: 01/19/18 11:05 ITV [id number]) Discharge Planning Assessment Advance Directives? Yes History Provided By Patient Family Member Medical Record Prior Living Arrangements House Household Members spouse Independent with ADL's Yes Is patient alert and oriented? Yes Whiteboard Updated in Patient Room with Yes name and ext. # of Reheater Helper Review Status In Process Next Review Type Continued Stay Review
--- NOTE | 2018-01-19 12:22 | OT.IP.TRT ---
Current Diagnoses Unspecified intestinal obstruction, unspecified as to partial versus complete obstruction (01/18/18) Occupational Therapy Treatment Note M3 OT- IP Subjective and Pain Start: 01/18/18 16:44 Freq: Status: Active Protocol: Document 01/19/18 12:22 OMARCarlin (Rec: 01/19/18 15:15 PJM [id number]) OT- Subjective Occupational Therapy Visit Type Type Administrative Note Visit Start Time 12:15 Visit Stop Time 12:22 Total Visit Minutes 7 Notes OT referral received on this 77 yr old pt admitted with small bowel obstruction (non surgical at present). Pt no longer has NG suction tube. Brief ADL interview completed with pt and her spouse. Pt has been up walking in halls independently and up to bathroom and sink and able to complete lower body dressing and toileting independently. 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 No OT needs identified for this admission. Pt/spouse agree. No charge.
--- NOTE | 2018-01-19 14:27 | PC.NURSE ---
Day shift: Per conversation w/ DR Funes Pt placed NPO at this time. This was also discussed w/ Pt as well. Call light in reach.
--- NOTE | 2018-01-19 15:38 | P.PN_ITS ---
Subjective Date Patient Seen: 01/19/18 Time Patient Seen: 15:36 Interval history: SPOKE TO PATIENT AND FAMILY REGARDING CASE QUESTIONS AND CONCERNS ADDRESSED HAVE 2-3 BM OVER LAST 24 HRS NO NAUSEA OR VOMITING Exam Vital Signs (past 8 hours): - 01/19/18 07:39 01/19/18 07:48 01/19/18 11:33 Temperature 98.1 F 97.5 F L Pulse Rate 76 87 Respiratory Rate 16 16 Blood Pressure 123/63 134/65 Pulse Oximetry 97 98 97 Oxygen Delivery Method Room Air Oxygen Flow Rate 0 Narrative Exam Narrative: NO ACUTE DISTRESS. PATIENT IS ALERT ORIENTED X3. VITAL SIGNS STABLE HEAD ATRAUMATIC NORMOCEPHALIC NECK : SUPPLE WITHOUT ADENOPATHY NO CAROTID BRUITS EYE: EOMI, PERRLA, NORMAL CONJUNCTIVA; NO JAUNDICE CHEST: REGULAR RATE. NO RUBS. PMI IS NON DISPLACED. NO MURMURS; NORMAL S1- S2 PULMONARY: DECREASED BS OVER THE BASES. MILD BIBASILAR CRACKLES NOTED; NO INCREASED DULLNESS TO PERCUSSION ABDOMEN: SOFT. NON DISTENDED. DEC BOWEL IN ALL QUAD; MILD TENDERNESS TO PALAPTION. EXTREMITIES: NO EDEMA.. NO CYANOSIS CLUBBING NOTED. NEURO: CRANIAL NERVES 2-12 GROSSLY INTACT. NO FOCAL NEUROLOGICAL DEFICIT NOTED. MSK: NORMAL RANGE OF MOTION FOR AGE. NO JOINT EFFUSION. SKIN: NORMAL FOR ETHNICITY; NO ECCHYMOSIS. NO LESION. GOOD TURGOR.; NO RASHES : NORMAL EXTERNAL GENITALIA. PSYCH : APPROPRIATE MOOD AND AFFECT. ALERT AWAKE ORIENTED X3 Objective Labs Result Diagrams: 01/19/18 05:42 01/19/18 05:42 Labs: Laboratory Results - last 24 hr 01/19/18 01/19/18 05:42 05:42 WBC 7.0 RBC 3.35 L Hgb 10.4 L Hct 30.5 L MCV 91.1 MCH 31.0 MCHC 34.1 RDW 13.4 Plt Count 281 Neut % (Auto) 65.4 Lymph % (Auto) 20.1 L [place] % (Auto) 12.4 Eos % (Auto) 1.5 L Baso % (Auto) 0.6 Neut # (Auto) 4600 Sodium 142 Potassium 3.2 L Chloride 106 Carbon Dioxide 27 BUN 8 Creatinine 0.60 Estimated GFR > 60.0 BUN/Creatinine Ratio 13.3 Glucose 167 H Calcium 8.3 L Total Bilirubin 0.3 AST 11 L ALT 20 Alkaline Phosphatase 42 Total Protein 5.7 L Albumin 3.3 L Globulin 2.4 Albumin/Globulin Ratio 1.4 Assessment & Plan Plan: Assessment/Plan Narrative: IMPRESSION AND PLAN SBO; HIGH GRADE PER IMAGING; SURG TEAM IS ON THE CASE AND ASSISTANCE GREATLY APPRECIATED; PATIENT REPORTEDLY HAD A COUPLE OF BM; SOME BELCHING REPORTED; NO NAUSEA OR VOMITING; WAS RESTARTED ON CLEARS AND HAZEL WELL; HOWEVER, REPEAT ABD XRAY STILL SHOWING SIGNIFICANT OBSTRUCTION REPORTEDLY; RESTARTED ON NPO; KEEP ON IVF TO PREVENT DEHYDRATION; REPLACE ELECTROLYTES INDICATED; NGT INDICATED FOR INTRACTABLE NAUSEA AND VOMITING. HX OF TAKOTSUBO CMP; ECHO ORDERED AND AWAITING READ; ; WATCH FOR CARDIAC DECOMPENSATION ; TELE AT ALL TIMES LEUKOCYTOSIS; CONSIDER ACUTE REACTANT TO IMFLMTR PROCESS; NO INFECTION SUSPECTED HOWEVER, WOULD CONT ON FLAGYL AND CIPRO FOR NOW; DAILY CBC TO FOLLOW; ADJUST MANAGEMENT INDICATED CLINICALLY HYPERGLYCEMIA; POSS DM VS PREDM; OUTPATIENT W/U; ISS WHILE IN HOUSE POSS MGUS PER HX; OUTPATIENT MANAGEMENT OSTEOPOROSIS PER HX; HOME MEDS ONCE INDICATED GERD/PUD PER HX; ON PPI IV WHILE NPO DC PER CLINICAL COURSE ADDITIONAL MANAGEMENT INDICATED BOWEL REST FOR NOW REPEAT ABD FILMS INDICATED CLINICALLY FOLLOW SURGICAL TEAM RECOMMENDATIONS IN REGARD TO MANAGEMENT - Quality VTE Deep Vein Thrombosis/Pulmonary Embolism Present on Admission: No
--- NOTE | 2018-01-19 16:25 | PT.IPTN ---
Current Diagnoses Unspecified intestinal obstruction, unspecified as to partial versus complete obstruction (01/18/18) Physical Therapy Treatment Note M2 PT-IP Current Condition Start: 01/18/18 12:26 Freq: NEEDED Status: Active Protocol: Document 01/18/18 12:00 HH (Rec: 01/18/18 12:55 HH [id number]) Physical Therapy Current Condition Current Condition Evaluation Date 01/18/18 Treatment Diagnosis Acute abdominal pain; generalized muscle weakness; difficulty in walking Onset Date 01/18/18 Precautions Other Precautions Pt is now on NG tube for suctioning. M3 PT-IP Subjective Start: 01/18/18 12:26 Freq: NEEDED Status: Active Protocol: Document 01/19/18 16:24 CLB (Rec: 01/19/18 16:25 CLB [id number]) Subjective Physical Therapy Visit Type Type Patient Refusal Notes Pt stated she had just walked around the [place] ( [place]) twice. Will check with pt tomorrow.
--- NOTE | 2018-01-19 17:23 | PC.NURSE ---
Addendum entered by Elsy Lees R.N. 01/19/18 22:26: Pt ambulating in hallway occasionally. Pt refused ABO until she spoke to . New IV established w/o incidence.. Relatively uneventful evening. IV continues as per orders. Call light w/in reach. Continue plan of care. Original Note: Pt ambulated in hallway w/family. Denies discomfort or nausea. Teler shows NSR per ICU staff. IV infusing into LAC @ 100/hr via pump as per orders. Call light w/in reach.
--- NOTE | 2018-01-19 21:32 | P.PN_ITS ---
Subjective Date Patient Seen: 01/19/18 Time Patient Seen: 21:26 Interval history: Patient complaining of some diffuse mild crampy abdominal pain but much improved since admission yesterday. Nasogastric tube was removed early this morning incidentally. She has had no nausea or vomiting since. States she had 2 episodes of limited flatus. She has had small liquid stool with enema therapy only. She normally has chronic constipation at baseline for which she takes daily laxatives. Exam Vital Signs (past 8 hours): - 01/19/18 15:50 01/19/18 17:08 01/19/18 19:50 Temperature 98.2 F 98.3 F Pulse Rate 75 83 Respiratory Rate 16 18 Blood Pressure 134/72 129/71 Pulse Oximetry 97 97 96 Oxygen Delivery Method Room Air Oxygen Flow Rate 0 Narrative Exam Narrative: Well-nourished well-developed female in no acute distress lying comfortably in bed. Family is at the bedside. Alert oriented x3. Regular rate and rhythm No crackles or wheezes Abdomen remains distended and tympanitic with some palpable loops of small bowel. She is mildly tender but certainly with no guarding or rebound. No obvious hernias in her existing scars. Remains afebrile and no tachycardia Objective Labs Result Diagrams: 01/19/18 05:42 01/19/18 05:42 Labs: Laboratory Results - last 24 hr 01/19/18 01/19/18 05:42 05:42 WBC 7.0 RBC 3.35 L Hgb 10.4 L Hct 30.5 L MCV 91.1 MCH 31.0 MCHC 34.1 RDW 13.4 Plt Count 281 Neut % (Auto) 65.4 Lymph % (Auto) 20.1 L [place] % (Auto) 12.4 Eos % (Auto) 1.5 L Baso % (Auto) 0.6 Neut # (Auto) 4600 Sodium 142 Potassium 3.2 L Chloride 106 Carbon Dioxide 27 BUN 8 Creatinine 0.60 Estimated GFR > 60.0 BUN/Creatinine Ratio 13.3 Glucose 167 H Calcium 8.3 L Total Bilirubin 0.3 AST 11 L ALT 20 Alkaline Phosphatase 42 Total Protein 5.7 L Albumin 3.3 L Globulin 2.4 Albumin/Globulin Ratio 1.4 White blood cell count has normalized. I have personally reviewed her abdominal x-rays done this morning. She has no free air but continues to have significant dilated loops of small bowel with air -fluid levels. There is essentially no change when compared to the CT scan films from admission. Assessment & Plan Plan: Assessment/Plan Narrative: 77-year-old female with ongoing partial small-bowel obstruction. Patient overall is clinically improved but clearly not ready for oral intake at this time. We will allow her to continue with non operative management without the nasogastric tube. NG tube placement is quite difficult given her previous sleeve gastrectomy. I suspect if she requires NG tube reinsertion this will have to be done endoscopically. I discussed this with her this evening. I am hopeful that she will continue to respond and slowly improved with non operative management, but I suspect she will still be here for several days in the hospital. Repeat abdominal x-rays tomorrow. Repeat laboratory studies as well. If she shows clinical and radiographic improvement then reinstitute clear liquids tomorrow morning. If she does not progress then planned small-bowel follow-through with Gastrografin if she is otherwise stable. Again, I reviewed all this with her today. All questions were answered to her satisfaction, and she voiced understanding. Orders were written. Quality VTE Deep Vein Thrombosis/Pulmonary Embolism Present on Admission: No
[2018-01-20] VITALS (9 sets, daily range): BP systolic 127–146; BP diastolic 62–78; PULSE 68–82; RESP 16–18; TEMP 36.3–36.8; O2SAT 96–99; BMI 23.0
--- NOTE | 2018-01-20 | DI.RAD.S_ITS ---
PROCEDURE: XR ABDOMEN 3V INDICATIONS: Small-bowel obstruction TECHNIQUE: One view chest and two views of the abdomen were acquired. COMPARISON: [facility], CR, XR ABDOMEN MIN 2V, 01/19/2018, 13:13. FINDINGS: Surgical changes and devices: None. Chest: Lungs are clear. Heart size is normal. No pleural effusions. No pneumoperitoneum. Abdomen: Bowel gas pattern continues to demonstrate dilated fluid filled loops of bowel. There is a focal loop of bowel measuring approximately in the right colon. The previous most prominent loop of small bowel is identified in the left upper quadrant measuring 5.3 cm, now measuring approximately 4.4 cm. No suspicious calcifications. Visualized solid organ contours appear normal. Bones: Presumed uterine fibroid calcifications are present. IMPRESSION: Moderate partial bowel obstruction relatively unchanged. Dictated by: Alta Mayorga M.D. on 01/20/2018 at 9:11 Approved by: Alta Mayorga M.D. on 01/20/2018 at 9:13
[2018-01-20] MEDS: LORazepam 2 MG/ML SYRINGE 0.5 MG IV (01:00)
[2018-01-20] MEDS: KCL 40 MEQ IN NS 1,000 ML 100 MEQ IV ×2 (02:14→12:01)
[2018-01-20] MEDS: metroNIDAZOLE 500 MG/100 ML PIGGYBACK 100 MG IV (05:56)
[2018-01-20 06:14] LABS: Add Manual Diff / Slide Review NO; Basophils Percent Auto 0.8 % (0-2); Eosinophils Percent Auto 2.9 % (2-4); Hematocrit 32.9 % (36-46); Hemoglobin 11.3 g/dL (12.0-16.0); Lymphocytes Percent Auto 39.2 % (25-40); Mean Corpuscular HGB Conc 34.2 % (30-36); Mean Corpuscular Volume 90.6 fL (80-100); Monocytes Percent Auto 10.7 % (3-14); Neutrophils Absolute Auto 3300 /uL (3000-5900); Neutrophils Percent Auto 46.4 % (50-75); Platelet Count 312 X10^3/uL (150-400); Red Blood Cell Count 3.63 X10^6/uL (4.0-5.2); Red Cell Distribution Width 13.1 % (11.6-14.8); White Blood Cell Count 7.1 X10^3/uL (4.5-11.0)
[2018-01-20 06:21] LABS: Alanine Aminotransferase 22 IU/L (9-52); Albumin 3.6 g/dL (3.5-5.0); Albumin Globulin Ratio 1.4 (1.0-2.8); Alkaline Phosphatase 46 U/L (38-126); Aspartate Aminotransferase 12 IU/L (14-36); BUN Creatinine Ratio 6.7 (6-22); Bilirubin Total 0.4 mg/dL (0.2-1.3); Blood Urea Nitrogen 4 mg/dL (7-17); Calcium 8.5 mg/dL (8.4-10.2); Carbon Dioxide 27 mmol/L (22-32); Chloride 106 mmol/L (98-107); Estimated Glomerular Filt Rate > 60.0 mL/min (>60); Globulin 2.6 g/dL (1.7-4.1); Glucose 100 mg/dL (80-110); HEMOLYSIS < 15 (0-50); Potassium 3.5 mmol/L (3.4-5.1); Sodium 143 mmol/L (137-145); Total Protein 6.2 g/dL (6.3-8.2)
--- NOTE | 2018-01-20 11:21 | PM.PN.1 ---
Subjective Date Patient Seen: 01/20/18 Time Patient Seen: 11:21 Interval history: HAD A GROSSLY UNEVENTFUL NIGHT NO SIGNFCT N/V REQUIRING NGT PLACEMNT DOING BETTER SPOKE TO PATIENT AND FAMILY AT BEDSIDE Exam Vital Signs (past 8 hours): - 01/20/18 04:16 01/20/18 07:30 01/20/18 09:00 Temperature 98.3 F 97.6 F Pulse Rate 75 68 Respiratory Rate 18 16 Blood Pressure 130/62 127/72 Pulse Oximetry 96 96 97 Oxygen Delivery Method Room Air Oxygen Flow Rate 0 Narrative Exam Narrative: NO ACUTE DISTRESS. PATIENT IS ALERT ORIENTED X3. VITAL SIGNS STABLE HEAD ATRAUMATIC NORMOCEPHALIC NECK : SUPPLE WITHOUT ADENOPATHY NO CAROTID BRUITS EYE: EOMI, PERRLA, NORMAL CONJUNCTIVA; NO JAUNDICE CHEST: REGULAR RATE. NO RUBS. PMI IS NON DISPLACED. NO MURMURS; NORMAL S1-S2 PULMONARY: DECREASED BS OVER THE BASES. MILD BIBASILAR CRACKLES NOTED; NO INCREASED DULLNESS TO PERCUSSION ABDOMEN: SOFT. NON DISTENDED. DEC BOWEL IN ALL QUAD; MILD TENDERNESS TO PALPATION. EXTREMITIES: NO EDEMA.. NO CYANOSIS CLUBBING NOTED. NEURO: CRANIAL NERVES 2-12 GROSSLY INTACT. NO FOCAL NEUROLOGICAL DEFICIT NOTED. MSK: NORMAL RANGE OF MOTION FOR AGE. NO JOINT EFFUSION. SKIN: NORMAL FOR ETHNICITY; NO ECCHYMOSIS. NO LESION. GOOD TURGOR.; NO RASHES : NORMAL EXTERNAL GENITALIA. PSYCH : APPROPRIATE MOOD AND AFFECT. ALERT AWAKE ORIENTED X3 Objective Labs Result Diagrams: 01/20/18 05:50 01/20/18 05:50 Labs: Laboratory Results - last 24 hr 01/20/18 01/20/18 05:50 05:50 WBC 7.1 RBC 3.63 L Hgb 11.3 L Hct 32.9 L MCV 90.6 MCH 31.0 MCHC 34.2 RDW 13.1 Plt Count 312 Neut % (Auto) 46.4 L Lymph % (Auto) 39.2 [place] % (Auto) 10.7 Eos % (Auto) 2.9 Baso % (Auto) 0.8 Neut # (Auto) 3300 Sodium 143 Potassium 3.5 Chloride 106 Carbon Dioxide 27 BUN 4 L Creatinine 0.60 Estimated GFR > 60.0 BUN/Creatinine Ratio 6.7 Glucose 100 Calcium 8.5 Total Bilirubin 0.4 AST 12 L ALT 22 Alkaline Phosphatase 46 Total Protein 6.2 L Albumin 3.6 Globulin 2.6 Albumin/Globulin Ratio 1.4 Assessment & Plan Plan: Assessment/Plan Narrative: IMPRESSION AND PLAN SBO; HIGH GRADE PER IMAGING; SURG TEAM IS ON THE CASE AND ASSISTANCE GREATLY APPRECIATED; PATIENT REPORTED SOME FLATUS; NO MORE BM FOR LAST 24 HRS ; NO NAUSEA OR VOMITING; NPO PER SURG TO CONTINUE UNTIL SURG ATTENDING CLINICAL DISCRETION; ABD XRAY THIS AM AGAIN STILL SHOWING MODERATE OBSTRUCTION BUT PARTIALLY NOTED; KEEP ON IVF TO PREVENT DEHYDRATION UNTIL RESTARTED ON ORAL INTAKES; REPLACE ELECTROLYTES INDICATED; NGT INDICATED FOR INTRACTABLE NAUSEA AND VOMITING. FOLLOW CLOSELY FOR ACUTE ABD/ISCHEMIA HX OF TAKOTSUBO CMP; ECHO WITHOUT SIGNIFICANT CHANGES WITH NORMAL VENT FCT REPORTED; ; WATCH FOR CARDIAC DECOMPENSATION ; TELE AT ALL TIMES LEUKOCYTOSIS; CONSIDER ACUTE REACTANT TO IMFLMTR PROCESS; NO INFECTION SUSPECTED HOWEVER, WOULD CONT ON FLAGYL AND CIPRO FOR NOW; DAILY CBC TO FOLLOW; ADJUST MANAGEMENT INDICATED CLINICALLY HYPERGLYCEMIA; POSS DM VS PREDM; OUTPATIENT W/U; ISS WHILE IN HOUSE POSS MGUS PER HX; OUTPATIENT MANAGEMENT OSTEOPOROSIS PER HX; HOME MEDS ONCE INDICATED GERD/PUD PER HX; ON PPI IV WHILE NPO POSS VENT SEPTAL DEFECT; STABLE; MONITOR FOR NOW DC PER CLINICAL COURSE ADDITIONAL MANAGEMENT INDICATED BOWEL REST FOR NOW AND RESTART ON PO ONLY PER SURGERY DISCRETION REPEAT ABD FILMS SERIALLY TO FOLLOW FOLLOW SURGICAL TEAM RECOMMENDATIONS IN REGARD TO MANAGEMENT Quality VTE Deep Vein Thrombosis/Pulmonary Embolism Present on Admission: No
[2018-01-20] MEDS: PANTOPRAZOLE 40 MG VIAL IV (12:01)
--- NOTE | 2018-01-20 12:46 | P.PN_ITS ---
Subjective Date Patient Seen: 01/20/18 Time Patient Seen: 12:42 Interval history: denies pain. Has some occasional cramping in the lower left quadrant. No nausea or vomiting. She is thirsty and wishes to have something to drink. No subjective fever or chills. Denies chest pain or shortness of breath. Feels less distended today. Passing a small amount of flatus but no further bowel movements. Ambulating well without any issues. No dysuria or hematuria. Overall she is feeling better since admission. Exam Vital Signs (past 8 hours): - 01/20/18 07:30 01/20/18 09:00 01/20/18 12:06 Temperature 97.6 F Pulse Rate 68 82 Respiratory Rate 16 16 Blood Pressure 127/72 145/74 H Pulse Oximetry 96 97 96 01/20/18 12:32 Temperature Pulse Rate Respiratory Rate Blood Pressure Pulse Oximetry 96 Oxygen Delivery Method Room Air Oxygen Flow Rate 0 Narrative Exam Narrative: Well-nourished well-developed female in no acute distress. She has been ambulating the halls all morning. Family is at the bedside. Alert oriented x3. She is in relatively good spirits. Chest clear to auscultation bilaterally with regular rate and rhythm. No murmurs, gallops, rubs. No crackles or wheezes abdomen is soft and much less distended today. She is minimally tender in the left lower quadrant and certainly has no guarding or rebound. I appreciate no significant abnormalities or masses. She has active bowel sounds. extremities show no clubbing, cyanosis, or edema Objective Labs Result Diagrams: 01/20/18 05:50 01/20/18 05:50 Labs: Laboratory Results - last 24 hr 01/20/18 01/20/18 05:50 05:50 WBC 7.1 RBC 3.63 L Hgb 11.3 L Hct 32.9 L MCV 90.6 MCH 31.0 MCHC 34.2 RDW 13.1 Plt Count 312 Neut % (Auto) 46.4 L Lymph % (Auto) 39.2 [place] % (Auto) 10.7 Eos % (Auto) 2.9 Baso % (Auto) 0.8 Neut # (Auto) 3300 Sodium 143 Potassium 3.5 Chloride 106 Carbon Dioxide 27 BUN 4 L Creatinine 0.60 Estimated GFR > 60.0 BUN/Creatinine Ratio 6.7 Glucose 100 Calcium 8.5 Total Bilirubin 0.4 AST 12 L ALT 22 Alkaline Phosphatase 46 Total Protein 6.2 L Albumin 3.6 Globulin 2.6 Albumin/Globulin Ratio 1.4 abdominal x-rays today show no free air. Perhaps minimally improved small- bowel dilatation with some decreased air-fluid levels but several persist. There is colon gas and stool however. I discussed this with her today. Assessment & Plan Plan: Assessment/Plan Narrative: 77-year-old female with partial small bowel obstruction likely secondary to adhesions that is slowly clinically improving. No indication for nasogastric tube at this time. Continue to ambulate aggressively. We will allow clear liquid diet and restart home medications. Decrease IV fluid rate. Stop antibiotics. Will obtain small-bowel follow-through tomorrow. Add bowel regimen. All questions answered to her satisfaction, and she voiced understanding. Orders were written. Quality VTE Deep Vein Thrombosis/Pulmonary Embolism Present on Admission: No
--- NOTE | 2018-01-20 13:35 | CM.DPC ---
DCP Cont: Met with patient briefly, family in room. Introduced self and role. Placed name on board. Patient is concerned about her OBs status. Let patient know that her case was being reviewed, and utilization review nurse would be contacting [place]. Patient upset about situation. Is concerned about payment here in hospital. Patient is planning to go home at discharged, but wants this issue resolved while she is here. P: DCP to continue to follow and reassure that her case continues to be reviewed by utilization nurse. Jennifer Nogueira RN/[employer]
[2018-01-20] MEDS: MAGNESIUM HYDROXIDE 30 ML UDC PO (14:22)
--- NOTE | 2018-01-20 15:39 | PT.IPTN ---
Current Diagnoses Unspecified intestinal obstruction, unspecified as to partial versus complete obstruction (01/18/18) Physical Therapy Treatment Note M2 PT-IP Current Condition Start: 01/18/18 12:26 Freq: NEEDED Status: Active Protocol: Document 01/18/18 12:00 HH (Rec: 01/18/18 12:55 HH [email or web address]) Physical Therapy Current Condition Current Condition Evaluation Date 01/18/18 Treatment Diagnosis Acute abdominal pain; generalized muscle weakness; difficulty in walking Onset Date 01/18/18 Precautions Other Precautions Pt is now on NG tube for suctioning. M3 PT-IP Subjective Start: 01/18/18 12:26 Freq: NEEDED Status: Active Protocol: Document 01/20/18 15:29 SA (Rec: 01/20/18 15:38 SA [email or web address]) Subjective Physical Therapy Visit Type Type Treatment Note Visit Start Time 14:18 Visit Stop Time 14:35 Notes Pt agreeable to have PT although she dose not think she needs it. Physical Therapy Visit Comments Patient Comments Patient's spouse present. Therapy Pain Assessment Pain When Pain Assessed During Mobility Pain Present Pain Present Denied Pain M4 PT-IP Mobility and Gait Start: 01/18/18 12:26 Freq: NEEDED Status: Active Protocol: Document 01/20/18 15:29 SA (Rec: 01/20/18 15:38 SA [email or web address]) PT-Bed Mobility Assessment Rolling Type of Rolling Bilateral Level of Assist Independent Supine to Sit Supine to Sit Standby Assistance Sit to Supine Sit to Supine Standby Assistance Scooting Scooting to Edge of Bed Standby Assistance PT-Transfer Assessment Sit to and From Stand Sit to and from Stand Standby Assistance Use of Upper Extremities Equipment Transfer Assistive Device Front Wheeled Walker Transfers Transfer Destination Chair Transfer Ability Level of Assist Standby Assistance Comments Mobility Comments Pt SBA with mobility tasks, without cues, no LOB and denies dizziness. Pt with good movement planning and standing balance. Gait Assessment Gait Gait Assistance Required: Standby Assistance Distance (Feet) 250 Assistive Devices Assistive Device Front Wheeled Walker Gait Deviations General Gait Pattern Decreased Stride Length Factors Limiting Gait Function Factors Limiting Gait Function Decreased Strength Comments Gait Comments Pt able to manange her IV pole IND, SBA with gait and no LOB x 250 feet with no rest breaks and denies fatigue. Stair Climbing Assessment Comments Stair Climbing Comments Pt has no stairs at home. PT-Balance Assessment Comments Other Balance Tests/Deviations/Treatment Pt completed SLB Bilaterally : for 10 seconds each side with no LOB. Able to compelted head turns with ambulation and no LOB. M5 PT-IP Objective Assessments Start: 01/18/18 12:26 Freq: NEEDED Status: Active Protocol: Document 01/18/18 16:45 HH (Rec: 01/18/18 17:57 HH [email or web address]) Orientation Orientation/Cognition Level of Alertness Alert Orientation Name Age Birthday Month Date Year Day of Week Place Situation Gross Range of Motion Upper Extremity ROM Assessment Within Functional Limits Lower Extremity ROM Assessment Within Functional Limits Strength Upper Extremity Strength Assessment Within Functional Limits Lower Extremity Strength Assessment Within Functional Limits M6 PT-IP Treatment Start: 01/18/18 12:26 Freq: NEEDED Status: Active Protocol: Document 01/20/18 15:29 SA (Rec: 01/20/18 15:38 SA [email or web address]) Physical Therapy Treatment Exercises Exercises Ankle Pumps Gluteal Sets Quad Sets Heel Slides Straight Leg Raises Education Education Provided Safety M7 PT-IP Assessment and Plan Start: 01/18/18 12:26 Freq: NEEDED Status: Active Protocol: Document 01/20/18 15:29 SA (Rec: 01/20/18 15:38 SA [email or web address]) PT Summary Assessment and Plan Potential Rehabilitation Potential Excellent Status of Condition at Evaluation Stable Summary Assessment Summary Pt progressing well, increased quality and distance with gait. Demonstrates good safety awareness and dynamic balance . Frequency of Treatment Frequency Of Treatment Discharge Recommendations To Nursing Amount of Assist Needed Standby Assistance Discharge Recommendations PT Discharge Recommendations Home Home with Assistance Other Discharge Recommendations Pt has spouse at home to provide care.
--- NOTE | 2018-01-20 18:47 | PC.NURSE ---
Evening shift 1500: Assumed care of pt with safe hand off. Safety checks done. Pt is a/ox4. Pt denies pain at this time. CRISTINA Keene attempting IV start. 1600: Assessed pt. Continues to deny pain. Pt reports passing flatus. Will get gas pressure but walking helps to relieve. Discussed about IV placement. Pt is very anxious about getting another IV placed and would perfer if PICC RN placed IV. Pt reports taking clear liquids without any GI upset. Discussed with Dr. Whitley about no IV. Will transition IV medications over to PO. No IV placement at this time.
[2018-01-20] MEDS: DOCUSATE 100 MG CAPSULE PO (20:32)
[2018-01-20] MEDS: TEMAZEPAM 15 MG CAPSULE PO (21:57)
--- NOTE | 2018-01-20 22:07 | PC.NURSE ---
Explained rationale of compression hose to pt. Pt declines to wear at this time as states is very mobile and ambulating frequently.
[2018-01-21] VITALS (9 sets, daily range): BP systolic 119–139; BP diastolic 59–76; PULSE 72–102; RESP 13–20; TEMP 36.3–37.1; O2SAT 96–98
--- NOTE | 2018-01-21 | DI.RAD.S_ITS ---
PROCEDURE: FL SMALL BOWEL FOLLOW THROUGH INDICATIONS: small-bowel obstruction COMPARISON: None. FINDINGS: KUB: Preprocedural rehabilitation coordinator film demonstrates a normal bowel gas pattern. No suspicious abdominal calcifications. Visualized solid organ contours appear normal. No suspicious bony abnormalities. Small bowel: There is fast transit time of barium through the small bowel. Contrast reaches the ascending colon within 30 minutes. Small bowel loops are of normal caliber throughout. Mucosal folds are smooth and of normal thickness. No strictures, intraluminal masses, or extrinsic mass effects are noted. The terminal ileum is identified, and is normal in morphology. IMPRESSION: Patient is status post partial gastrectomy. No contrast extravasation. No evidence of small bowel obstruction. Dictated by: Jaxson Jimenez M.D. on 01/21/2018 at 15:23 Approved by: Jasxon Jimenez M.D. on 01/21/2018 at 15:25
--- NOTE | 2018-01-21 01:00 | PC.NURSE ---
Pt sound asleep, resp. 16. Will monitor & assess when she wakes up.
[2018-01-21 06:38] LABS: Add Manual Diff / Slide Review NO; Eosinophils Percent Auto 4.2 % (2-4); Hemoglobin 11.1 g/dL (12.0-16.0); Lymphocytes Percent Auto 40.7 % (25-40); Mean Corpuscular HGB Conc 34.6 % (30-36); Mean Corpuscular Volume 89.4 fL (80-100); Monocytes Percent Auto 10.8 % (3-14); Neutrophils Absolute Auto 2600 /uL (3000-5900); Neutrophils Percent Auto 43.3 % (50-75); Platelet Count 320 X10^3/uL (150-400); Red Blood Cell Count 3.58 X10^6/uL (4.0-5.2); White Blood Cell Count 5.9 X10^3/uL (4.5-11.0)
[2018-01-21 06:46] LABS: Alanine Aminotransferase 18 IU/L (9-52); Albumin 3.5 g/dL (3.5-5.0); Albumin Globulin Ratio 1.5 (1.0-2.8); Alkaline Phosphatase 45 U/L (38-126); Aspartate Aminotransferase 13 IU/L (14-36); Bilirubin Total 0.3 mg/dL (0.2-1.3); Blood Urea Nitrogen 6 mg/dL (7-17); Calcium 8.6 mg/dL (8.4-10.2); Carbon Dioxide 29 mmol/L (22-32); Chloride 102 mmol/L (98-107); Estimated Glomerular Filt Rate > 60.0 mL/min (>60); Globulin 2.4 g/dL (1.7-4.1); Glucose 81 mg/dL (80-110); HEMOLYSIS < 15 (0-50); Potassium 3.6 mmol/L (3.4-5.1); Sodium 141 mmol/L (137-145); Total Protein 5.9 g/dL (6.3-8.2)
[2018-01-21] MEDS: buPROPion XL 150 MG TAB 300 MG PO (09:53)
[2018-01-21] MEDS: METOPROLOL ER 25 MG TABLET 12.5 MG PO ×2 (09:54→20:30)
[2018-01-21] MEDS: DOCUSATE 100 MG CAPSULE PO (09:54)
--- NOTE | 2018-01-21 10:47 | PC.NURSE ---
Pt ambulating in hallway. Advised that barium follow through will be at noon if scheduling permits. Denies pain, passing flatus but no BM so far.
--- NOTE | 2018-01-21 11:44 | PM.PN.1 ---
Subjective Date Patient Seen: 01/21/18 Time Patient Seen: 11:44 Interval history: CONT TO FEEL BETTER AMBULATING WELL AND HAZEL CLEARS WELL SPOKE TO PT WITH FAMILY AT BEDSIDE Exam Vital Signs (past 8 hours): - 01/21/18 05:00 01/21/18 08:00 01/21/18 10:45 Temperature 97.3 F L 98.6 F Pulse Rate 72 80 Respiratory Rate 20 16 Blood Pressure 139/72 130/71 Pulse Oximetry 98 98 97 Oxygen Delivery Method Room Air Oxygen Flow Rate 0 Narrative Exam Narrative: NO ACUTE DISTRESS. PATIENT IS ALERT ORIENTED X3. VITAL SIGNS STABLE HEAD ATRAUMATIC NORMOCEPHALIC NECK : SUPPLE WITHOUT ADENOPATHY NO CAROTID BRUITS EYE: EOMI, PERRLA, NORMAL CONJUNCTIVA; NO JAUNDICE CHEST: REGULAR RATE. NO RUBS. PMI IS NON DISPLACED. NO MURMURS; NORMAL S1-S2 PULMONARY: DECREASED BS OVER THE BASES. NO CRACKLES; NO INCREASED DULLNESS TO PERCUSSION ABDOMEN: SOFT. NONTENDER. NONDISTENDED. BOWEL SOUNDS ARE PRESENT IN ALL 4 QUADRANTS. NO MASS. EXTREMITIES: NO EDEMA.. NO CYANOSIS CLUBBING NOTED. NEURO: CRANIAL NERVES 2-12 GROSSLY INTACT. NO FOCAL NEUROLOGICAL DEFICIT NOTED. MSK: NORMAL RANGE OF MOTION FOR AGE. NO JOINT EFFUSION. SKIN: NORMAL FOR ETHNICITY; NO ECCHYMOSIS. NO LESION. GOOD TURGOR.; NO RASHES : NORMAL EXTERNAL GENITALIA. PSYCH : APPROPRIATE MOOD AND AFFECT. ALERT AWAKE ORIENTED X3 Objective Labs Result Diagrams: 01/21/18 06:00 01/21/18 06:00 Labs: Laboratory Results - last 24 hr 01/21/18 01/21/18 06:00 06:00 WBC 5.9 RBC 3.58 L Hgb 11.1 L Hct 32.0 L MCV 89.4 MCH 31.0 MCHC 34.6 RDW 13.0 Plt Count 320 Neut % (Auto) 43.3 L Lymph % (Auto) 40.7 H [place] % (Auto) 10.8 Eos % (Auto) 4.2 H Baso % (Auto) 1.0 Neut # (Auto) 2600 L Sodium 141 Potassium 3.6 Chloride 102 Carbon Dioxide 29 BUN 6 L Creatinine 0.60 Estimated GFR > 60.0 BUN/Creatinine Ratio 10.0 Glucose 81 Calcium 8.6 Total Bilirubin 0.3 AST 13 L ALT 18 Alkaline Phosphatase 45 Total Protein 5.9 L Albumin 3.5 Globulin 2.4 Albumin/Globulin Ratio 1.5 Assessment & Plan Plan: Assessment/Plan Narrative: IMPRESSION AND PLAN SBO; HIGH GRADE PER IMAGING; SURG TEAM IS ON THE CASE AND ASSISTANCE GREATLY APPRECIATED; HAZEL CLEARS WELL; NO MORE BM FOR LAST 48 HRS REPORTED WITH THE I/O ; NO NAUSEA OR VOMITING; ADVANCE DIET PER SURG ATTENDING DISCRETION; ABD XRAY ORDERED TODAY AND WILL FOLLOW RESULT; DC IVF FOR NOW; WATCH ELECTROLYTES CLOSELY; HX OF [place] CMP; ECHO WITHOUT SIGNIFICANT CHANGES WITH NORMAL VENT FCT REPORTED; ; WATCH FOR CARDIAC DECOMPENSATION ; TELE AT ALL TIMES LEUKOCYTOSIS: RESOLVED HYPERGLYCEMIA; POSS DM VS PREDM; OUTPATIENT W/U; ISS WHILE IN HOUSE POSS MGUS PER HX; OUTPATIENT MANAGEMENT OSTEOPOROSIS PER HX; HOME MEDS ONCE INDICATED GERD/PUD PER HX; ON PPI IV WHILE NPO POSS VENT SEPTAL DEFECT; STABLE; MONITOR FOR NOW INSOMNIA; HOME MEDS VS ATIVAN FOR SLEEP; FURTHER OUTPATIENT MANAGEMENT INDICATED Quality VTE Deep Vein Thrombosis/Pulmonary Embolism Present on Admission: No
--- NOTE | 2018-01-21 14:21 | PC.NURSE ---
Pt returned from Barium follow through and began having loose stools. Continue to monitor.
--- NOTE | 2018-01-21 16:16 | P.PN_ITS ---
Subjective Date Patient Seen: 01/21/18 Time Patient Seen: 16:14 Interval history: Patient seen and examined earlier this morning at approximately 8:30 a.m. she was seen again this afternoon currently. In the interim she has completed her small-bowel follow-through as ordered. She had a quiet night with no further abdominal pain, nausea, or vomiting. She does not feel subjectively distended. No chest pain or shortness of breath. No dysuria. She is ambulating without difficulty. Passing flatus. Beginning to have return of her appetite. Exam Vital Signs (past 8 hours): - 01/21/18 10:45 Pulse Oximetry 97 Oxygen Delivery Method Room Air Oxygen Flow Rate 0 Narrative Exam Narrative: Well-nourished well-developed female in no acute distress. Alert oriented x3. She is in good spirits today. Chest clear to auscultation bilaterally Abdomen soft and nondistended today. She is not tympanitic. Completely nontender throughout the entire abdomen. No masses. No palpable bowel loops. Extremities show no clubbing or cyanosis Objective Labs Result Diagrams: 01/21/18 06:00 01/21/18 06:00 Labs: Laboratory Results - last 24 hr 01/21/18 01/21/18 06:00 06:00 WBC 5.9 RBC 3.58 L Hgb 11.1 L Hct 32.0 L MCV 89.4 MCH 31.0 MCHC 34.6 RDW 13.0 Plt Count 320 Neut % (Auto) 43.3 L Lymph % (Auto) 40.7 H [place] % (Auto) 10.8 Eos % (Auto) 4.2 H Baso % (Auto) 1.0 Neut # (Auto) 2600 L Sodium 141 Potassium 3.6 Chloride 102 Carbon Dioxide 29 BUN 6 L Creatinine 0.60 Estimated GFR > 60.0 BUN/Creatinine Ratio 10.0 Glucose 81 Calcium 8.6 Total Bilirubin 0.3 AST 13 L ALT 18 Alkaline Phosphatase 45 Total Protein 5.9 L Albumin 3.5 Globulin 2.4 Albumin/Globulin Ratio 1.5 Small-bowel follow-through was reviewed with the staff radiologist. She had relatively rapid transit time from the stomach to the colon. No significant dilated loops of small bowel. No transition point. No significant air-fluid levels. I discussed the results with her in detail this afternoon. Assessment & Plan Plan: Assessment/Plan Narrative: 77-year-old female with resolving partial small-bowel obstruction likely secondary to adhesions. She is responding well to non operative management at this point. Given the essentially normal small-bowel follow-through we will advance her to a mechanical soft diet which she generally follows at home after her bariatric surgery. Continue medications otherwise orally. If she does well with her diet and continues to have bowel function then likely discharged home tomorrow. All questions were answered to her satisfaction, and she voiced understanding. Orders were written. Quality VTE Deep Vein Thrombosis/Pulmonary Embolism Present on Admission: No
[2018-01-21] MEDS: LORazepam 1 MG TABLET PO (20:33)
[2018-01-22] VITALS: BP 125/66; PULSE 81; RESP 16; TEMP 36.8; O2SAT 96
--- NOTE | 2018-01-22 02:10 | PC.NURSE ---
Rn Liaison Note: 0000: Awake, resting in bed. Family at bedside. Vital signs stable. No IV access. No complaint of pain or discomfort at this time.
[2018-01-22 06:20] LABS: Add Manual Diff / Slide Review NO; Basophils Percent Auto 1.3 % (0-2); Eosinophils Percent Auto 3.5 % (2-4); Hematocrit 30.8 % (36-46); Hemoglobin 10.7 g/dL (12.0-16.0); Lymphocytes Percent Auto 29.3 % (25-40); Mean Corpuscular HGB Conc 34.8 % (30-36); Mean Corpuscular Hemoglobin 30.9 PG (26-34); Mean Corpuscular Volume 88.8 fL (80-100); Monocytes Percent Auto 13.3 % (3-14); Neutrophils Absolute Auto 3600 /uL (1500-7000); Neutrophils Percent Auto 52.6 % (50-75); Platelet Count 347 X10^3/uL (150-400); Red Blood Cell Count 3.47 X10^6/uL (4.0-5.2); Red Cell Distribution Width 13.2 % (11.6-14.8); White Blood Cell Count 6.7 X10^3/uL (4.5-11.0)
[2018-01-22 06:25] LABS: Alanine Aminotransferase 23 IU/L (9-52); Albumin 3.6 g/dL (3.5-5.0); Albumin Globulin Ratio 1.4 (1.0-2.8); Alkaline Phosphatase 41 U/L (38-126); Aspartate Aminotransferase 21 IU/L (14-36); BUN Creatinine Ratio 18.6 (6-22); Bilirubin Total 0.3 mg/dL (0.2-1.3); Blood Urea Nitrogen 13 mg/dL (7-17); Carbon Dioxide 29 mmol/L (22-32); Chloride 102 mmol/L (98-107); Estimated Glomerular Filt Rate > 60.0 mL/min (>60); Globulin 2.5 g/dL (1.7-4.1); Glucose 95 mg/dL (80-110); HEMOLYSIS < 15 (0-50); Potassium 3.2 mmol/L (3.4-5.1); Sodium 141 mmol/L (137-145); Total Protein 6.1 g/dL (6.3-8.2)
[2018-01-22 08:00] VITALS: BP 148/86; PULSE 80; RESP 18; TEMP 36.9; O2SAT 97
[2018-01-22] MEDS: buPROPion XL 150 MG TAB 300 MG PO (08:59)
[2018-01-22] MEDS: METOPROLOL ER 25 MG TABLET 12.5 MG PO (09:03)
[2018-01-22 09:22] VITALS: O2SAT 98
--- NOTE | 2018-01-22 10:50 | P.PN_ITS ---
Subjective Date Patient Seen: 01/22/18 Time Patient Seen: 10:47 Interval history: Denies nausea or vomiting. No abdominal pain. Tolerated a soft low residue diet yesterday without issue. Continues to have flatus and bowel movements. No dysuria or hematuria. Ambulating without difficulty. Exam Vital Signs (past 8 hours): - 01/22/18 09:22 Pulse Oximetry 98 Oxygen Delivery Method Room Air Oxygen Flow Rate 0 Narrative Exam Narrative: Well-nourished well-developed female in no acute distress. Alert oriented x3. Regular rate and rhythm abdomen soft, nondistended, nontender, no masses extremities show no clubbing or cyanosis Objective Labs Result Diagrams: 01/22/18 05:53 01/22/18 05:53 Labs: Laboratory Results - last 24 hr 01/22/18 01/22/18 05:53 05:53 WBC 6.7 RBC 3.47 L Hgb 10.7 L Hct 30.8 L MCV 88.8 MCH 30.9 MCHC 34.8 RDW 13.2 Plt Count 347 Neut % (Auto) 52.6 Lymph % (Auto) 29.3 [place] % (Auto) 13.3 Eos % (Auto) 3.5 Baso % (Auto) 1.3 Neut # (Auto) 3600 Sodium 141 Potassium 3.2 L Chloride 102 Carbon Dioxide 29 BUN 13 Creatinine 0.70 Estimated GFR > 60.0 BUN/Creatinine Ratio 18.6 Glucose 95 Calcium 9.0 Total Bilirubin 0.3 AST 21 ALT 23 Alkaline Phosphatase 41 Total Protein 6.1 L Albumin 3.6 Globulin 2.5 Albumin/Globulin Ratio 1.4 no new radiographic studies review. Small-bowel follow-through was as documented yesterday. Study was entirely normal. Assessment & Plan Plan: Assessment/Plan Narrative: A 77-year-old female with spontaneously resolved small bowel obstruction likely secondary to adhesions. She is doing quite well today. Continue mechanical soft low residue diet. Activity as tolerated without restrictions. Continue her usual bowel regimen as she requires laxative therapy at baseline. She may follow up with her primary care physician. Follow up with surgery only as needed. However, I advised her to call or return at any time should she have recurrent symptoms such as nausea, vomiting, abdominal distention, abdominal pain, inability to tolerate a diet, and lack of bowel function. All questions were answered to her satisfaction, and she voiced understanding. Home today per Internal Medicine Service. Quality VTE Deep Vein Thrombosis/Pulmonary Embolism Present on Admission: No
--- NOTE | 2018-01-22 11:17 | PM.DS.1 ---
History of Present Illness Date Patient Seen: 01/22/18 Time Patient Seen: 07:30 Chief complaint: severe abdominal pain Narrative: Date Patient Seen: 01/18/18 Time Patient Seen: 12:16 Chief complaint: severe abdominal pain Narrative: - PATIENT WITH AN EXTENSIVE ABD SURGERY HX WHICH INCLUDED HYSTERECTOMY, PARTIAL COLECTOMY/ RESECTION, - CAME TO THE ED WITH ABD PAIN WHICH SHE REPORTED BEING SHARP AND DIFFUSED IN NATURE - THIS IS IMPROVED NOW ON PAIN MEDS; - REPORTED SOME NAUSEA BUT NO VOMITING - SHE DID CONFIRMED SHE WAS DC WITH TAKOTSUBO CMP A WHILE BACK BUT DOES NOT REMEMBER HER EF. - SHE ASO REPORTED THAT LATELY SHE HAS BEEN HAVING SOME FEELING OF WEAKNESS AND SLEEPINESS WHICH ARE UNUSUAL - DENIED CP/ORTHOPNEA/SYNCOPE. REPORTED SOB/HENDRICKS. NO OTHER COMPLAINTS FAMILY AT BEDSIDE Discharge Providers Date of admission: 01/18/18 07:28 Primary care physician: Tony Garcia MD Consults: 01/18/18 07:23 Consult to Discharge Planning Routine Comment: Consult to Occupational Therapy Evaluate & Treat Comment: Physician Instructions: Evaluate and treat Consult to Physical Therapy Evaluate & Treat Comment: Physician Instructions: Evaluate and Treat 01/18/18 09:58 Consult to Physician Routine Comment: Consulting Provider: Dima Mckinney Reason for consultation: SBO Has provider been notified: Yes Discharge provider: Shelby Cornejo DO Discharge Date: 01/22/18 Summary Discharge Diagnosis: SBO; HIGH GRADE PER IMAGING; RESOLVED HX OF TAKOTSUBO CMP; ECHO REPEAT AND EF WNL AND NO SIGNIFICANT CHANGES FROM PRIOR LEUKOCYTOSIS; RESOLVED; NO ABX INDICATED HYPERGLYCEMIA; POSS DM VS PREDM; OUTPATIENT W/U INDICATED POSS MGUS PER HX; OUTPATIENT MANAGEMENT OSTEOPOROSIS PER HX; HOME MEDS ONCE INDICATED GERD/PUD PER HX; ON PPI IV WHILE NPO Hospital Course: PATIENT ADMITTED WITH A HIGH GRADE SBO TREATED CONCERVATIVELY DUE TO MULTIPLE PRIOR SURGERIES INTRA-ABDOMINALLY SHE PROGRESSED SLOWLY BUT SUCCESSFULLY IN THE END WITH SURGERY ATTENDING MANAGEMENT ASSISTANCE SHE IS BACK TO HER BASELINE AT THIS TIME; HAZEL PO WELL AND HAVING FLATUS AND BMs SHE WOULD BE DC TO HOME AND ADDITIONAL MANAGEMENT DEFERRED TO OP PROVIDERS Status at Discharge Cognitive/behavioral status at discharge: STABLE AND DC TO HOME Functional status at discharge: independent ambulation Overall status at discharge: patient is back to baseline Time Spent with Patient Greater than 30 minutes Exam Vital Signs (past 8 hours): - 12/14/18 08:00 01/22/18 09:22 Temperature 98.4 F Pulse Rate 80 Respiratory Rate 18 Blood Pressure 148/86 H Pulse Oximetry 97 98 Oxygen Delivery Method Room Air Oxygen Flow Rate 0 Narrative Exam Narrative: NO ACUTE DISTRESS. PATIENT IS ALERT ORIENTED X3. VITAL SIGNS STABLE HEAD ATRAUMATIC NORMOCEPHALIC NECK : SUPPLE WITHOUT ADENOPATHY NO CAROTID BRUITS EYE: EOMI, PERRLA, NORMAL CONJUNCTIVA; NO JAUNDICE CHEST: REGULAR RATE. NO RUBS. PMI IS NON DISPLACED. NO MURMURS; NORMAL S1-S2 PULMONARY: DECREASED BS OVER THE BASES. MILD BIBASILAR CRACKLES NOTED; NO INCREASED DULLNESS TO PERCUSSION ABDOMEN: SOFT. NONTENDER. NONDISTENDED. BOWEL SOUNDS ARE PRESENT IN ALL 4 QUADRANTS. NO MASS. EXTREMITIES: NO EDEMA.. NO CYANOSIS CLUBBING NOTED. NEURO: CRANIAL NERVES 2-12 GROSSLY INTACT. NO FOCAL NEUROLOGICAL DEFICIT NOTED. MSK: NORMAL RANGE OF MOTION FOR AGE. NO JOINT EFFUSION. SKIN: NORMAL FOR ETHNICITY; NO ECCHYMOSIS. NO LESION. GOOD TURGOR.; NO RASHES : NORMAL EXTERNAL GENITALIA. PSYCH : APPROPRIATE MOOD AND AFFECT. ALERT AWAKE ORIENTED X3 Objective Labs Result Diagrams: 01/22/18 05:53 01/22/18 05:53 Labs: Laboratory Results - last 24 hr 01/22/18 01/22/18 05:53 05:53 WBC 6.7 RBC 3.47 L Hgb 10.7 L Hct 30.8 L MCV 88.8 MCH 30.9 MCHC 34.8 RDW 13.2 Plt Count 347 Neut % (Auto) 52.6 Lymph % (Auto) 29.3 [place] % (Auto) 13.3 Eos % (Auto) 3.5 Baso % (Auto) 1.3 Neut # (Auto) 3600 Sodium 141 Potassium 3.2 L Chloride 102 Carbon Dioxide 29 BUN 13 Creatinine 0.70 Estimated GFR > 60.0 BUN/Creatinine Ratio 18.6 Glucose 95 Calcium 9.0 Total Bilirubin 0.3 AST 21 ALT 23 Alkaline Phosphatase 41 Total Protein 6.1 L Albumin 3.6 Globulin 2.5 Albumin/Globulin Ratio 1.4 Discharge Plan Discharge Plan Patient Disposition: Home Discharge comment: ACT HAZEL CARDIAC HIGH FIBER/SOFT DIET F/U WITH PCP 3-10 DAYS Discharge Med Rec/Prescriptions Prescriptions: New polyethylene glycol 3350 [Miralax] 17 gram/dose powder 17 gram PO BID Qty: 850 RF: 0 sennosides [Senna-Extra] 17.2 mg tablet 17.2 mg PO BEDTIME Qty: 60 RF: 0 lorazepam 1 mg tablet 1 mg PO BEDTIME PRN (Reason: insomnia) Qty: 14 RF: 0 Continue Probiotic 1 cap PO 1-2XD Qty: 0 RF: 0 ginkgo biloba 40 mg Capsule 120 mg PO DAILY Qty: 0 RF: 0 vitamin E 100 unit Capsule 1 cap PO DAILY Qty: 0 RF: 0 cholecalciferol (vitamin D3) 5,000 UNIT capsule 5,000 unit PO DAILY Qty: 0 RF: 0 biotin 5 mg Capsule 5 mg PO DAILY RF: 0 temazepam 15 mg Capsule 15 - 30 mg PO BEDTIME PRN (Reason: Sleep) RF: 0 ascorbic acid (vitamin C) 500 mg Tablet,Chewable 1,500 mg PO DAILY RF: 0 bisacodyl 5 mg Tablet,Delayed Release (Dr/Ec) 5 mg PO BEDTIME RF: 0 metoprolol succinate 25 mg Tablet Extended Release 24 Hr 12.5 mg PO BID RF: 0 ipratropium bromide 42 mcg (0.06 %) [place],Non-Aerosol 2 spray INTRANASAL BID PRN (Reason: rhinitis) RF: 0 omeprazole magnesium [Prilosec OTC] 20 mg Tablet,Delayed Release (Dr/Ec) 20 mg PO DAILY RF: 0 cyanocobalamin (vitamin B-12) [Vitamin B-12] 5,000 mcg Tablet, Sublingual 5,000 mcg PO Q OTHER DAY RF: 0 CoQ-10 200 mg capsule 200 mg PO DAILY RF: 0 Joint Health 1 tab PO DAILY RF: 0 Stool Softener 1 cap PO DAILY PRN (Reason: Constipation) RF: 0 bupropion HCl 300 MG tablet extended release 24 hr 300 mg PO DAILY RF: 0 zoledronic [id number] [Reclast] 5 mg/100 mL Piggyback 5 mg IV DIRECTED RF: 0 Follow up/Referrals: Tony Garcia MD [Primary Care Provider] - (appt;01/25 @ 1:45 w/dr davis @ [facility] [phone]) Provider Discharge Instructions Diet: Low-fat and Low-cholesterol Diet comment: HIGH FIBER Skin/Wound/Dressing Care Report to your healthcare provider any signs of infection, such as:: chills, fever, night sweats, increased pain, unusual drainage and unusual redness Visit Report/Discharge Packet Instructions: DI for Small Bowel Obstruction, Lorazepam Visit Report Forms: Stroke Signs & Symptoms Discharge Data Primary Care Provider: Tony Garcia Attending Provider: Shelby Cornejo Admit Date/Time: 01/18/18 07:28 Discharges patient from system. Discharge Date/Time: 01/22/18 11:36 Quality VTE Deep Vein Thrombosis/Pulmonary Embolism Present on Admission: No
--- NOTE | 2018-01-22 11:35 | PC.NURSE ---
Pt given dc information and script for ativan. Taken by wheelchair to ER entrance.
== END 2018-01-22 11:36 | disposition home or self-care (01) | DRG 389 ==
LOC: ED 05:19 → AC 08:08
PROVIDERS: Surgery; Admitting Provider Hospitalist; Emergency Provider Emergency Medicine; Family Provider Internal Medicine; PCP Internal Medicine; Visit Provider Hospitalist
DX: K56.51 Intestinal adhesions [bands], with partial obstruction (principal); I51.81 Takotsubo syndrome; I10 Essential (primary) hypertension; Z87.891 Personal history of nicotine dependence; K21.9 Gastro-esophageal reflux disease without esophagitis; Z98.84 Bariatric surgery status; G47.00 Insomnia, unspecified; R73.9 Hyperglycemia, unspecified; M81.0 Age-related osteoporosis without current pathological fracture
CPT/HCPCS: 36415; 36591; 71045; 74019; 74021; 74177; 74250; 80053; 81001; 83036; 83605; 83690; 83735; 84100; 85025; 93306; 96365; 96375; 96376; 97110; 97116; 97161; 97530; 99231; 99283; 99285; C9113; J0744; J1170; J1644; J2060; J2270; J2405; J2543; J3480; Q9967

== ENCOUNTER → 2018-10-14 10:08 | Outpatient (CLI) | payer OTHER, SELFPAY ==
[2018-01-18 08:50] VITALS: BMI 22.4
[2018-10-14 11:40] LABS: Aspartate Aminotransferase 13 IU/L (14-36); BUN Creatinine Ratio 13.6 (6-22); Blood Urea Nitrogen 15 mg/dL (7-17); Calcium 9.9 mg/dL (8.4-10.2); Carbon Dioxide 27 mmol/L (22-32); Chloride 99 mmol/L (98-107); Cholesterol 212 mg/dL (140-199); Estimated Glomerular Filt Rate 48.3 mL/min (>60); Glucose 82 mg/dL (80-110); HDL Cholesterol 64 mg/dL (40-60); HEMOLYSIS < 15 (0-50); LDL Cholesterol Calculated 129 mg/dL (<100); Potassium 4.7 mmol/L (3.4-5.1); Sodium 139 mmol/L (137-145); Triglycerides 95 mg/dL (35-150)
== END ==
PROVIDERS: PCP Internal Medicine; Visit Provider Internal Medicine
DX: E78.2 Mixed hyperlipidemia (principal); I51.81 Takotsubo syndrome
CPT/HCPCS: 36415; 80048; 80061; 84450

== ENCOUNTER → 2020-02-14 10:04 | Outpatient (CLI) | payer OTHER, SELFPAY ==
[2018-11-30 09:07] VITALS: BMI 22.4
== END ==
PROVIDERS: Family Provider Internal Medicine; PCP Internal Medicine; Referring Provider Internal Medicine; Visit Provider Internal Medicine
DX: M85.88 Other specified disorders of bone density and structure, other site (principal); Z78.0 Asymptomatic menopausal state; Z87.891 Personal history of nicotine dependence
CPT/HCPCS: 77080

== ENCOUNTER → 2020-05-14 11:47 | Outpatient (CLI) | payer OTHER, SELFPAY ==
[2018-11-30 09:07] VITALS: BMI 22.4
[2020-05-14 13:22] LABS: BUN Creatinine Ratio 13.3 (6-22); Blood Urea Nitrogen 11 mg/dL (7-17); Calcium 10.3 mg/dL (8.4-10.2); Carbon Dioxide 29 mmol/L (22-32); Chloride 100 mmol/L (98-107); Estimated Glomerular Filt Rate > 60.0 mL/min (>60); Glucose 72 mg/dL (80-110); HEMOLYSIS < 15 (0-50); Potassium 4.5 mmol/L (3.4-5.1); Sodium 136 mmol/L (137-145)
== END ==
PROVIDERS: Family Provider Internal Medicine; PCP Internal Medicine; Referring Provider Internal Medicine; Visit Provider Internal Medicine
DX: M85.80 Other specified disorders of bone density and structure, unspecified site (principal); E78.2 Mixed hyperlipidemia
CPT/HCPCS: 36415; 80048

== ENCOUNTER → 2021-07-01 08:50 | Outpatient (CLI) | payer MEDICARE, SELFPAY ==
[2018-11-30 09:07] VITALS: BMI 22.4
[2021-07-01 11:10] LABS: Alanine Aminotransferase 9 IU/L (<35); Albumin 4.3 g/dL (3.5-5.0); Albumin Globulin Ratio 1.4 (1.0-2.8); Alkaline Phosphatase 53 U/L (38-126); Aspartate Aminotransferase 18 IU/L (14-36); BUN Creatinine Ratio 23.4 (6-22); Bilirubin Total 0.4 mg/dL (0.2-1.3); Blood Urea Nitrogen 22 mg/dL (7-17); Calcium 9.5 mg/dL (8.4-10.2); Carbon Dioxide 34 mmol/L (22-32); Chloride 100 mmol/L (98-107); Cholesterol 215 mg/dL (140-199); Estimated Glomerular Filt Rate > 60 mL/min (>60); Glucose 90 mg/dL (80-110); HDL Cholesterol 64 mg/dL (40-60); HEMOLYSIS < 15 (0-50); LDL Cholesterol Calculated 136 mg/dL (<100); Potassium 3.9 mmol/L (3.4-5.1); Sodium 137 mmol/L (137-145); Total Protein 7.3 g/dL (6.3-8.2); Triglycerides 73 mg/dL (35-150)
[2021-07-01 11:23] LABS: Vitamin D 25 Hydroxy (D3) > 126 ng/mL (30.0-100.0)
[2021-07-01 11:38] LABS: TSH w/ Reflex to FT4 1.94 uIU/mL (0.47-4.68)
[2021-07-01 11:56] LABS: Vitamin B12 326 pg/mL (239-931)
[2021-07-01 17:10] LABS: Hep C Virus Ab w/Reflex Quant NEGATIVE s/c (NEGATIVE)
== END ==
PROVIDERS: Family Provider Internal Medicine; PCP Internal Medicine; Referring Provider Student in an Organized Health Care Education/Training Program; Visit Provider Student in an Organized Health Care Education/Training Program
DX: M85.89 Other specified disorders of bone density and structure, multiple sites (principal); N95.9 Unspecified menopausal and perimenopausal disorder; E78.2 Mixed hyperlipidemia; Z11.59 Encounter for screening for other viral diseases; R53.83 Other fatigue; R41.3 Other amnesia; Z79.890 Hormone replacement therapy
CPT/HCPCS: 36415; 77080; 80053; 80061; 82306; 82607; 84443; 86803

== ENCOUNTER → 2022-09-07 11:31 | Outpatient (CLI) | payer MEDICARE, SELFPAY ==
[2018-11-30 09:07] VITALS: BMI 22.4
[2022-09-07 12:27] LABS: Influenza A - CEPHEID Flu A NEGATIVE (NEGATIVE); Influenza B - CEPHEID Flu B NEGATIVE (NEGATIVE); Respiratory Syncytial Virus Negative (Negative)
[2022-09-07 12:31] LABS: COVID-19 CEPHEID 4-PLEX PCR POSITIVE (Negative)
== END ==
PROVIDERS: Family Provider Internal Medicine; PCP Student in an Organized Health Care Education/Training Program; Visit Provider Nurse Practitioner Family
DX: J02.9 Acute pharyngitis, unspecified (principal); R09.81 Nasal congestion
CPT/HCPCS: 0241U

== ENCOUNTER 2022-09-08 10:33 | Emergency (ER) | payer MEDICARE, SELFPAY ==
[2018-11-30 09:07] VITALS: BMI 22.4
[2022-09-08] VITALS (9 sets, daily range): BP systolic 115–175; BP diastolic 62–83; PULSE 80–104; RESP 11–19; TEMP 37.2; O2SAT 95–98; BMI 23.0
--- NOTE | 2022-09-08 10:50 | DI.RAD.S_ITS ---
PROCEDURE: XR CHEST 1V INDICATIONS: suspected sepsis TECHNIQUE: One view of the chest was acquired. COMPARISON: [facility], CR, XR CHEST 1V, 01/18/2018, 14:37. FINDINGS: Surgical changes and devices: Peripherally calcified breast implants. Overlying monitoring wires. Lungs and pleura: Lungs are clear. No pleural effusions or pneumothorax. Mediastinum: Mediastinal contours appear normal. Heart size is normal. Bones and chest wall: No suspicious bony lesions. Overlying soft tissues appear unremarkable. IMPRESSION: No acute cardiopulmonary disease. Dictated by: Rylie Awad M.D. on 09/08/2022 at 11:37 Approved by: Rylie Awad M.D. on 09/08/2022 at 11:37
[2022-09-08 11:13] LABS: Add Manual Diff / Slide Review NO; Basophils Absolute Auto 100 /uL (0-100); Eosinophils Absolute Auto 100 /uL (0-450); Eosinophils Percent Auto 1.4 % (2-4); Hematocrit 32.2 % (36-46); Hemoglobin 10.8 g/dL (12.0-16.0); Lymphocytes Absolute Auto 1500 /uL (1100-4500); Lymphocytes Percent Auto 21.4 % (25-40); Mean Corpuscular HGB Conc 33.6 % (30-36); Mean Corpuscular Hemoglobin 28.3 PG (26-34); Mean Corpuscular Volume 84.1 fL (80-100); Monocytes Absolute Auto 800 /uL (0-900); Monocytes Percent Auto 11.6 % (3-14); Neutrophils Absolute Auto 4400 /uL (1500-7000); Neutrophils Percent Auto 64.6 % (50-75); Platelet Count 220 X10^3/uL (150-400); Red Blood Cell Count 3.83 X10^6/uL (4.0-5.2); Red Cell Distribution Width 16.1 % (11.6-14.8); White Blood Cell Count 6.9 X10^3/uL (4.5-11.0)
[2022-09-08] MEDS: SODIUM CHLORIDE 0.9% 1,000 ML 1000 ML IV (11:13)
[2022-09-08 11:21] LABS: PTT Partial Thromboplastin Tim 27 SECONDS (26-36)
[2022-09-08 11:23] LABS: Lactate (Lactic Acid) 1.4 mmol/L (0.7-2.1)
[2022-09-08 11:24] LABS: Alanine Aminotransferase 18 IU/L (<35); Albumin 3.9 g/dL (3.5-5.0); Albumin Globulin Ratio 1.3 (1.0-2.8); Alkaline Phosphatase 60 U/L (38-126); Aspartate Aminotransferase 26 IU/L (14-36); BUN Creatinine Ratio 21.6 (6-22); Bilirubin Total 0.2 mg/dL (0.2-1.3); Blood Urea Nitrogen 16 mg/dL (7-17); Calcium 8.8 mg/dL (8.4-10.2); Carbon Dioxide 27 mmol/L (22-32); Chloride 100 mmol/L (98-107); Creatine Kinase 39 U/L (30-135); Estimated Glomerular Filt Rate > 60 mL/min (>60); Globulin 2.9 g/dL (1.7-4.1); Glucose 148 mg/dL (80-110); HEMOLYSIS < 15 (0-50); Lipase 114 U/L (23-300); Potassium 3.6 mmol/L (3.4-5.1); Sodium 134 mmol/L (137-145); Total Protein 6.8 g/dL (6.3-8.2)
--- NOTE | 2022-09-08 11:27 | ED.SOB ---
HPI - SOB/Dyspnea General Chief Complaint: Shortness of Breath/Dyspnea Stated Complaint: COVID positive, SOB, heavy chest Time Seen by Provider: 09/08/22 10:51 Source: patient Mode of arrival: Ambulatory History of Present Illness HPI Narrative: 81-year-old female former smoker with history of hypertension and hyperlipidemia, MGUS, presents with known COVID diagnosed yesterday. She began having what she describes as a tickle in her throat on Thursday and over the next few days developed increasing cough and fever. Today she is had heaviness in her chest and worsening shortness of breath. her chest pain is reproducible and worse with deep breath and cough. She denies nausea or vomiting. Related Data Home Medications Medication Instructions Recorded Confirmed Probiotic 1 cap PO 1-2XD ##0 11/11/16 09/07/22 cholecalciferol (vitamin D3) 125 5,000 unit PO DAILY ##0 11/11/16 09/07/22 mcg (5,000 unit) capsule ginkgo biloba 40 mg capsule 120 mg PO DAILY ##0 11/11/16 09/07/22 vitamin E 100 unit capsule 1 cap PO DAILY ##0 11/11/16 09/07/22 CoQ-10 200 mg PO DAILY 01/18/18 09/07/22 Joint Health 1 tab PO DAILY 01/18/18 09/07/22 biotin 5 mg capsule 5 mg PO DAILY 01/18/18 09/07/22 bupropion HCl 300 mg 24 hr tablet, 300 mg PO DAILY 01/18/18 09/07/22 extended release ipratropium bromide 42 mcg (0.06 2 spray intranasal BID PRN rhinitis 01/18/18 09/07/22 %) nasal spray temazepam 15 mg capsule 15 - 30 mg PO BEDTIME PRN Sleep 01/18/18 09/07/22 atorvastatin 10 mg tablet (Lipitor) 10 mg PO DAILY 10/17/21 09/07/22 pantoprazole 20 mg tablet,delayed 20 mg PO DAILY 10/17/21 09/07/22 release (Protonix) carvedilol 12.5 mg tablet (Coreg) 12.5 mg PO DAILY 08/18/22 09/07/22 Previous Rx's Medication Instructions Recorded polyethylene glycol 3350 17 17 gram PO BID #850 grams 01/19/18 gram/dose oral powder (Miralax) sennosides 17.2 mg tablet 17.2 mg PO BEDTIME #60 tabs 01/22/18 (Senna-Extra) estradiol 10 mcg vaginal tablet 10 mcg vaginal 2XW #24 tabs 07/25/19 (Yuvafem) Allergies Allergy/AdvReac Type Severity Reaction Status Date / Time Sulfa (Sulfonamide Allergy Intermediate HIVES Verified 09/07/22 11:12 Antibiotics) codeine Allergy Unknown Verified 09/07/22 11:12 lactose Allergy Unknown Verified 09/07/22 11:12 octreotide Allergy Unknown Verified 09/07/22 11:12 Review of Systems Review of Systems Narrative: GENERAL: See HPI HEENT: Denies sinus pain, ear pain, sore throat, difficulty swallowing, dizziness. RESPIRATORY: see HPI CARDIOVASCULAR: see HPI, GASTROINTESTINAL: Denies nausea, vomiting, abdominal pain, diarrhea, constipation, melena. : Denies dysuria, frequency, incontinence, hematuria, urinary retention. MUSCULOSKELETAL: denies weakness, joint pain, or bony pain SKIN: Denies rash, skin lesions, or other NEUROLOGIC: Denies weakness, headache, numbness, change in speech, confusion, seizures, incoordination. PSYCHIATRIC: No concerning psychosocial issues. 12 point review of systems is negative except for those stated above Patient History Medical History History of small bowel obstruction (~2017) HTN (hypertension) Serous otitis media Takotsubo cardiomyopathy Surgical History History of cataract removal with insertion of prosthetic lens History of myomectomy (~1986) Status post gastric banding (~2008) Status post tubal ligation Social History household members: spouse Smoking Status: Former smoker Smoking Status: Former smoker alcohol intake frequency: 0-2 drinks per day Substance Use Type: does not use Exam Narrative Exam Narrative: GENERAL: [81] year old patient appears stated age. Well-developed patient, in mild distress. HEAD: Atraumatic. Normocephalic. EYES: Pupils equal round and reactive. Extraocular motions intact. No scleral icterus. No injection or drainage. ENT: Nose without bleeding, purulent drainage. Throat without erythema, tonsillar hypertrophy or exudate. Airway patent. NECK: Trachea midline. Non tender CARDIOVASCULAR: Regular rate and rhythm without murmurs, gallops, or rubs. RESPIRATORY: Clear to auscultation. Breath sounds equal bilaterally. No wheezes, rales, or rhonchi. GASTROINTESTINAL: Abdomen soft, non-tender, nondistended. EXTREMITIES: No edema or joint tenderness. BACK: Nontender without deformity or crepitance. No flank tenderness. NEURO: AOx3. SKIN: No rash or erythema of visible areas Initial Vital Signs Initial Vital Signs: Vital Signs Temperature 98.9 F 09/08/22 10:47 Pulse Rate 101 H 09/08/22 10:47 Respiratory Rate 17 09/08/22 10:47 Blood Pressure 175/83 H 09/08/22 10:47 Pulse Oximetry 96 09/08/22 10:47 Oxygen Delivery Method Room Air 09/08/22 10:47 Course Orders Ordered: ED Orders 09/08/22 10:50 XR chest 1V Stat EKG-12 Lead Stat RT Consult Eval and Treat NOW 09/08/22 10:55 BNP [NT-proBNP (BNP-Adult 18+)] Stat Blood Culture Stat Complete Blood Count AUTO DIFF Stat Comprehensive Metabolic Panel Stat Lactate (Lactic Acid) Stat Lipase Stat PTT Partial Thromboplastin Jayjay Stat Procalcitonin Stat Prothrombin Time INR Stat Troponin & CK Cardiac Panel Stat 09/08/22 11:29 CRP [C-Reactive Protein Quant] Stat D Dimer Stat Ondansetron HCl (Ondansetron 4 Mg/2 Ml Inj) 4 mg IV NOW PRN PRN Reason: Nausea And Vomiting Discontinued Medications Sodium Chloride (Normal Saline 0.9%) 1,000 mls @ 1,000 mls/hr IV BOLUS ONE Stop: 09/08/22 11:49 Last Admin: 09/08/22 11:13 Dose: 1,000 mls/hr Vital Signs Vital signs: Vital Signs - 8 hr 09/08/22 10:47 09/08/22 10:47 09/08/22 11:00 Temperature 98.9 F Pulse Rate 101 H 104 H Respiratory Rate 17 17 Blood Pressure 175/83 H 115/67 Pulse Oximetry 96 96 Oxygen Delivery Method Room Air 09/08/22 11:00 09/08/22 11:15 09/08/22 11:30 Temperature Pulse Rate 99 H 95 H 90 Respiratory Rate 18 19 19 Blood Pressure Pulse Oximetry 95 95 95 Oxygen Delivery Method Room Air MDM - SOB/Dyspnea Lab Data 09/08/22 10:55 09/08/22 10:55 Labs: Lab Results 09/08/22 09/08/22 09/08/22 Range/Units 10:55 10:55 10:55 WBC 6.9 (4.5-11.0) X10^3/uL RBC 3.83 L (4.0-5.2) X10^6/uL Hgb 10.8 L (12.0-16.0) g/dL Hct 32.2 L (36-46) % MCV 84.1 (80-100) fL MCH 28.3 (26-34) PG MCHC 33.6 (30-36) % RDW 16.1 H (11.6-14.8) % Plt Count 220 (150-400) X10^3/uL Neut % (Auto) 64.6 (50-75) % Lymph % (Auto) 21.4 L (25-40) % [place] % (Auto) 11.6 (3-14) % Eos % (Auto) 1.4 L (2-4) % Baso % (Auto) 1.0 (0-2) % Neut # (Auto) 4400 (9338-2356) /uL Lymph # (Auto) 1500 (3943-9571) /uL [place] # (Auto) 800 (0-900) /uL Eos # (Auto) 100 (0-450) /uL Baso # (Auto) 100 (0-100) /uL PT 11.0 (10.1-12.7) SECONDS INR 1.0 (0.9-1.3) APTT 27 (26-36) SECONDS D-Dimer (<500) ng/ml Sodium 134 L (137-145) mmol/L Potassium 3.6 (3.4-5.1) mmol/L Chloride 100 (98-107) mmol/L Carbon Dioxide 27 (22-32) mmol/L BUN 16 (7-17) mg/dL Creatinine 0.74 (0.52-1.04) mg/dL Estimated GFR > 60 (>60) mL/min BUN/Creatinine Ratio 21.6 (6-22) Glucose 148 H (80-110) mg/dL Lactate (0.7-2.1) mmol/L Calcium 8.8 (8.4-10.2) mg/dL Total Bilirubin 0.2 (0.2-1.3) mg/dL AST 26 (14-36) IU/L ALT 18 (<35) IU/L Alkaline Phosphatase 60 (38-126) U/L Total Creatine Kinase (30-135) U/L Troponin I (0.01-0.034) ng/mL C-Reactive Protein (<1.0) mg/dL NT-Pro-B Natriuret Pep (<450) pg/mL Total Protein 6.8 (6.3-8.2) g/dL Albumin 3.9 (3.5-5.0) g/dL Globulin 2.9 (1.7-4.1) g/dL Albumin/Globulin Ratio 1.3 (1.0-2.8) Lipase 114 (23-300) U/L Procalcitonin 0.07 (<0.5) ng/mL 09/08/22 09/08/22 09/08/22 Range/Units 10:55 10:55 10:55 WBC (4.5-11.0) X10^3/uL RBC (4.0-5.2) X10^6/uL Hgb (12.0-16.0) g/dL Hct (36-46) % MCV (80-100) fL MCH (26-34) PG MCHC (30-36) % RDW (11.6-14.8) % Plt Count (150-400) X10^3/uL Neut % (Auto) (50-75) % Lymph % (Auto) (25-40) % [place] % (Auto) (3-14) % Eos % (Auto) (2-4) % Baso % (Auto) (0-2) % Neut # (Auto) (3422-0010) /uL Lymph # (Auto) (9086-3043) /uL [place] # (Auto) (0-900) /uL Eos # (Auto) (0-450) /uL Baso # (Auto) (0-100) /uL PT (10.1-12.7) SECONDS INR (0.9-1.3) APTT (26-36) SECONDS D-Dimer 564 H (<500) ng/ml Sodium (137-145) mmol/L Potassium (3.4-5.1) mmol/L Chloride (98-107) mmol/L Carbon Dioxide (22-32) mmol/L BUN (7-17) mg/dL Creatinine (0.52-1.04) mg/dL Estimated GFR (>60) mL/min BUN/Creatinine Ratio (6-22) Glucose (80-110) mg/dL Lactate 1.4 (0.7-2.1) mmol/L Calcium (8.4-10.2) mg/dL Total Bilirubin (0.2-1.3) mg/dL AST (14-36) IU/L ALT (<35) IU/L Alkaline Phosphatase (38-126) U/L Total Creatine Kinase 39 (30-135) U/L Troponin I < 0.012 (0.01-0.034) ng/mL C-Reactive Protein (<1.0) mg/dL NT-Pro-B Natriuret Pep 922 H (<450) pg/mL Total Protein (6.3-8.2) g/dL Albumin (3.5-5.0) g/dL Globulin (1.7-4.1) g/dL Albumin/Globulin Ratio (1.0-2.8) Lipase (23-300) U/L Procalcitonin (<0.5) ng/mL 09/08/22 Range/Units 10:55 WBC (4.5-11.0) X10^3/uL RBC (4.0-5.2) X10^6/uL Hgb (12.0-16.0) g/dL Hct (36-46) % MCV (80-100) fL MCH (26-34) PG MCHC (30-36) % RDW (11.6-14.8) % Plt Count (150-400) X10^3/uL Neut % (Auto) (50-75) % Lymph % (Auto) (25-40) % [place] % (Auto) (3-14) % Eos % (Auto) (2-4) % Baso % (Auto) (0-2) % Neut # (Auto) (6374-2368) /uL Lymph # (Auto) (2458-3278) /uL [place] # (Auto) (0-900) /uL Eos # (Auto) (0-450) /uL Baso # (Auto) (0-100) /uL PT (10.1-12.7) SECONDS INR (0.9-1.3) APTT (26-36) SECONDS D-Dimer (<500) ng/ml Sodium (137-145) mmol/L Potassium (3.4-5.1) mmol/L Chloride (98-107) mmol/L Carbon Dioxide (22-32) mmol/L BUN (7-17) mg/dL Creatinine (0.52-1.04) mg/dL Estimated GFR (>60) mL/min BUN/Creatinine Ratio (6-22) Glucose (80-110) mg/dL Lactate (0.7-2.1) mmol/L Calcium (8.4-10.2) mg/dL Total Bilirubin (0.2-1.3) mg/dL AST (14-36) IU/L ALT (<35) IU/L Alkaline Phosphatase (38-126) U/L Total Creatine Kinase (30-135) U/L Troponin I (0.01-0.034) ng/mL C-Reactive Protein 3.2 H (<1.0) mg/dL NT-Pro-B Natriuret Pep (<450) pg/mL Total Protein (6.3-8.2) g/dL Albumin (3.5-5.0) g/dL Globulin (1.7-4.1) g/dL Albumin/Globulin Ratio (1.0-2.8) Lipase (23-300) U/L Procalcitonin (<0.5) ng/mL ECG Data Interpretation: [1112] EKG is normal sinus rhythm rate [95 ] and free of any signs of ischemia or ectopy. No ST segmental elevation or depression. No T wave inversions MDM Narrative Medical decision making narrative: CC: 81-year-old female with known COVID presents with increasing shortness of breath, fever and chest pain Complicating co-morbidities: age, hypertension, hyperlipidemia, COVID, MGUS Data collected from: Patient Medical records reviewed: Prior notes reviewed in our EMR Differential considered, but not limited to: COVID versus bacterial superinfection versus cardiac ischemia versus pulmonary embolism versus other Exam documented above, pertinent findings include: heart rate is regular, lungs clear, no evidence of labored breathing, no use accessory muscles or hypoxemia. Abdomen is soft and nontender Lab Test results independently reviewed as above. Pertinent findings: no leukocytosis or left shift. Patient is chronically anemic, no significant change, she does have minimal lymphocytopenia Independently reviewed EKG as above Imaging studies independently reviewed: chest x-ray demonstrates no acute disease Treatments: saline Re-evaluations: patient resting comfortably, no labored breathing, heart rate in the 90s, pulse ox in the upper 90s Discussion: patient with known COVID presents with increasing shortness of breath, cough and chest pain. Her chest pain is reproducible, sharp and stabbing, does not radiate. EKGs nonischemic, troponin is negative. No exertional symptoms. Imaging demonstrates no obvious pneumonia or bacterial superinfection. D-dimer is well below age corrected cutoff, particularly in the setting of known COVID. No indication to pursue pulmonary embolism. She is not requiring supplemental oxygen, has no GI symptoms, is tolerating orals. No evidence of cardiac ischemia. I discussed the possibility of Paxlovid with her and she has research these side effects and reactions with medications and would prefer to not take this medication. Disposition: see below, along with detailed discharge instructions that have been reviewed with patient as well as indications for ED re-evaluation and additional outpatient follow up Discharge Plan Departure Patient Disposition: Home Clinical Impression: COVID-19 Instructions: COVID-19 Activity Restrictions/Additional Instructions: *You have been diagnosed with [ COVID-19] *What to do: * per recommendations from the CDC and the [facility] Department of Health * stay home except to get medical care. Restrict activities outside your home, except for getting medical care. Do not go to work, school, or public areas. Avoid using public transportation, ride sharing, or taxis. * separate yourself from other people in your home. * call ahead before visiting your doctor * Wear a facemask * Cover your coughs and sneezes * Clean your hands often * Avoid sharing household items * Clean all high-touch services every day * Monitor your symptoms and seek prompt medical attention if your illness is worsening, particularly with difficulty in breathing. You may discontinue your isolation when: 1. You have been fever-free for at least 24 hours without the use of fever reducing medication, AND 2. Your symptoms are getting better, AND 3. At least 5 days have passed since symptoms first appeared 4. If you have fever, continue to stay home until fever resolves Individuals with laboratory confirmed COVID-19 who have not had any symptoms may discontinue home isolation when at least 5 days have passed since the date of their first COVID-19 diagnostic test and have had no subsequent illness You should notifiy any friends and family that have been in close contact *If up to date on COVID Vaccines, then they do not need to quarantine unless symptoms develop. Get tested on day 5 (or sooner if symptoms develop). Take precautions and watch for symptoms until day 10 *If NOT up to date on COVID Vaccines, then CDC recommends quarantine for at least 5 full days. Wear a well fitted mask at home if you must be around others. If they develop symptoms they should get tested. If they remain asymptomatic they should get tested on day 5. They should take precautions and monitor for symptoms until day 10. Prescriptions: No Action Probiotic 1 cap PO 1-2XD Qty: 0 ginkgo biloba 40 mg Capsule 120 mg PO DAILY Qty: 0 vitamin E 100 unit Capsule 1 cap PO DAILY Qty: 0 cholecalciferol (vitamin D3) 5,000 UNIT capsule 5,000 unit PO DAILY Qty: 0 estradiol [Yuvafem] 10 mcg tablet 10 mcg VAG 2XW Qty: 24 1RF atorvastatin [Lipitor] 10 mg Tablet 10 mg PO DAILY pantoprazole [Protonix] 20 mg Tablet,Delayed Release (Dr/Ec) 20 mg PO DAILY carvedilol [Coreg] 12.5 mg Tablet 12.5 mg PO DAILY Rx Instructions: must administer with a meal/food biotin 5 mg Capsule 5 mg PO DAILY temazepam 15 mg Capsule 15 - 30 mg PO BEDTIME PRN (Reason: Sleep) ipratropium bromide 42 mcg (0.06 %) [place],Non-Aerosol 2 spray INTRANASAL BID PRN (Reason: rhinitis) CoQ-10 200 mg capsule 200 mg PO DAILY [facility] 1 tab PO DAILY Patient Comments: 750-375-30 mg bupropion HCl 300 MG tablet extended release 24 hr 300 mg PO DAILY polyethylene glycol 3350 [Miralax] 17 gram/dose powder 17 gram PO BID Qty: 850 0RF Senna-Extra 17.2 mg tablet 17.2 mg PO BEDTIME Qty: 60 0RF Referrals: Ginny Kelly PA-C [Primary Care Provider] - Stand Alone Forms: Patient Portal/API
[2022-09-08 11:35] LABS: Troponin I < 0.012 ng/mL (0.01-0.034)
[2022-09-08 11:40] LABS: Procalcitonin 0.07 ng/mL (<0.5)
[2022-09-08 11:42] LABS: D Dimer 564 ng/ml (<500)
[2022-09-08 11:43] LABS: NT-proBNP (BNP-Adult 18+) 922 pg/mL (<450)
[2022-09-08 11:46] LABS: C-Reactive Protein Quant 3.2 mg/dL (<1.0)
== END 2022-09-08 12:44 | disposition home or self-care (01) ==
PROVIDERS: Emergency Provider Emergency Medicine; Family Provider Internal Medicine; PCP Student in an Organized Health Care Education/Training Program
DX: U07.1 COVID-19 (principal); R07.9 Chest pain, unspecified; R06.02 Shortness of breath; Z79.899 Other long term (current) drug therapy
CPT/HCPCS: 36415; 71045; 80053; 82550; 83605; 83690; 83880; 84145; 84484; 85025; 85379; 85610; 85730; 86140; 87040; 93005; 93010; 99284

== ENCOUNTER → 2022-12-10 14:41 | Outpatient (CLI) | payer MEDICARE, SELFPAY ==
[2018-11-30 09:07] VITALS: BMI 22.4
--- NOTE | 2022-12-10 14:45 | DI.RAD.S_ITS ---
PROCEDURE: XR CHEST 2V INDICATIONS: SOB TECHNIQUE: 2 views of the chest were acquired. COMPARISON: [facility], CR, XR CHEST 1V, 09/08/2022, 10:51. FINDINGS: Surgical changes and devices: None. Lungs and pleura: Blunting the left costophrenic angle Mediastinum: Mediastinal contours are normal. Heart size is normal. Atherosclerotic vascular calcification noted in the aortic arch. Bones and chest wall: No suspicious bony abnormalities. Soft tissues appear unremarkable. Bilateral breast prosthesis IMPRESSION: Moderate left pleural effusion, new from the prior Approved by: [place] Zamarripa M.D. on 12/10/2022 at 18:40
== END ==
PROVIDERS: Family Provider Internal Medicine; PCP Student in an Organized Health Care Education/Training Program; Referring Provider Physician Assistant
DX: R60.9 Edema, unspecified (principal); D64.9 Anemia, unspecified; J90 Pleural effusion, not elsewhere classified
CPT/HCPCS: 71046

== ENCOUNTER → 2023-01-26 15:47 | Outpatient (CLI) | payer MEDICARE, SELFPAY ==
[2018-11-30 09:07] VITALS: BMI 22.4
[2023-01-26 17:19] LABS: Add Manual Diff / Slide Review NO; Basophils Absolute Auto 100 /uL (0-100); Basophils Percent Auto 1.4 % (0-2); Eosinophils Absolute Auto 300 /uL (0-450); Eosinophils Percent Auto 3.5 % (2-4); Hematocrit 28.2 % (36-46); Hemoglobin 9.2 g/dL (12.0-16.0); Lymphocytes Absolute Auto 2500 /uL (1100-4500); Lymphocytes Percent Auto 32.1 % (25-40); Mean Corpuscular HGB Conc 32.7 % (30-36); Mean Corpuscular Hemoglobin 25.6 PG (26-34); Mean Corpuscular Volume 78.4 fL (80-100); Monocytes Absolute Auto 600 /uL (0-900); Monocytes Percent Auto 7.5 % (3-14); Neutrophils Absolute Auto 4300 /uL (1500-7000); Neutrophils Percent Auto 55.5 % (50-75); Platelet Count 344 X10^3/uL (150-400); Red Cell Distribution Width 15.5 % (11.6-14.8); White Blood Cell Count 7.7 X10^3/uL (4.5-11.0)
[2023-01-26 17:31] LABS: HEMOLYSIS < 15 (0-50); Hemoglobin A1C% w Est Avg Glu 6.1 % (4.0-6.0)
[2023-01-26 17:32] LABS: HEMOLYSIS < 15 (0-50)
[2023-01-26 17:38] LABS: Blood Urea Nitrogen 20 mg/dL (7-17); Calcium 9.7 mg/dL (8.4-10.2); Carbon Dioxide 25 mmol/L (22-32); Chloride 104 mmol/L (98-107); Estimated Glomerular Filt Rate > 60 mL/min (>60); Glucose 145 mg/dL (80-110); Potassium 4.4 mmol/L (3.4-5.1); Sodium 139 mmol/L (137-145)
[2023-01-26 17:54] LABS: Vitamin D 25 Hydroxy (D3) 103 ng/mL (30.0-100.0)
[2023-01-26 18:12] LABS: TSH w/ Reflex to FT4 0.18 uIU/mL (0.47-4.68)
[2023-01-26 20:39] LABS: Iron 48 ug/dL (37-170)
[2023-01-26 20:49] LABS: Percent Iron Saturation 11 % (15-50); Total Iron Binding Capacity 421 ug/dL (265-497); Transferrin 367 mg/dL (206-381)
[2023-01-26 21:05] LABS: Free T4, Direct Thyroxine 1.09 ng/dL (0.78-2.19)
[2023-01-26 21:44] LABS: Vitamin B12 636 pg/mL (239-931)
== END ==
PROVIDERS: Family Provider Internal Medicine; PCP Family Medicine; Referring Provider Family Medicine; Visit Provider Family Medicine
DX: Z13.29 Encounter for screening for other suspected endocrine disorder (principal); D64.9 Anemia, unspecified; R25.2 Cramp and spasm
CPT/HCPCS: 36415; 80048; 82306; 82607; 83036; 83540; 83550; 83735; 84439; 84443; 85025

== ENCOUNTER → 2023-06-26 12:11 | Outpatient (CLI) | payer MEDICARE, SELFPAY ==
[2018-11-30 09:07] VITALS: BMI 22.4
--- NOTE | 2023-06-26 12:12 | DI.RAD.S_ITS ---
PROCEDURE: XR DEXA AXIAL SKELETON INDICATIONS: Age-related osteoporosis COMPARISON: [facility], CR, XR DEXA AXIAL SKELETON, 07/01/2021, 9:27. FINDINGS: Lumbar Spine: Bone mineral density 0.859 g/cm2, T score -1.7. Left Hip: Bone mineral density 0.698 g/cm2, T score -2.0. Left Femoral Neck: Bone mineral density 0.608 g/cm2, T score -2.2. Right Hip: Bone mineral density 0.667 g/cm2, T score -2.3. Right Femoral Neck: Bone mineral density 0.585 g/cm2, T score -2.4. Fracture Risk Calculation (when applicable): 10-year fracture risk of a major osteoporotic fracture 17% and of a hip fracture 6.0%. (T score greater or equal to -1.0 to: NORMAL) (T score from -1.1 to -2.4: OSTEOPENIA) (T score less than or equal to -2.5: OSTEOPOROSIS) IMPRESSION: Severe osteopenia. Follow-up guidelines as follows: Osteoporosis: Consider a repeat DEXA and Vertebral Fracture Assessment (VFA) exam in 2 years or sooner if medically necessary, to reassess this patient's status. Osteopenia: Consider a repeat DEXA in 2-3 years to reassess this patient's status, or if there is a new clinical indication. Normal: Consider a repeat DEXA in 5 years or sooner, or if there is a new clinical indication. Dictated by: Rick Olivas M.D. on 06/26/2023 at 15:26 Approved by: Rick Olivas M.D. on 06/26/2023 at 15:28
== END ==
PROVIDERS: Family Provider Internal Medicine; PCP Family Medicine; Referring Provider Student in an Organized Health Care Education/Training Program; Visit Provider Student in an Organized Health Care Education/Training Program
DX: M81.0 Age-related osteoporosis without current pathological fracture (principal); N95.9 Unspecified menopausal and perimenopausal disorder
CPT/HCPCS: 77080

== ENCOUNTER → 2024-04-13 09:35 | Outpatient (CLI) | payer MEDICARE, SELFPAY ==
[2018-11-30 09:07] VITALS: BMI 22.4
[2024-04-14 13:10] LABS: Candida species Negative (Negative); Gardnerella vaginalis Negative (Negative); Trichomoas vaginalis Negative (Negative)
== END ==
PROVIDERS: Family Provider Internal Medicine; PCP Student in an Organized Health Care Education/Training Program; Visit Provider Obstetrics & Gynecology
DX: N89.8 Other specified noninflammatory disorders of vagina (principal)
CPT/HCPCS: 87480; 87510; 87660

== ENCOUNTER → 2024-05-16 08:57 | Outpatient (CLI) | payer MEDICARE, SELFPAY ==
[2018-11-30 09:07] VITALS: BMI 22.4
--- NOTE | 2024-05-16 08:58 | DI.ECHO.S_ITS ---
[place] +---------+ Hospital : : [address] : : [place] : : [id number] : : Phone: [phone] Echocardiogram Report + + :Name: KAMRAN TOM Study Date: 05/16/2024 Height: 63 in : :[facility] ReadingLocation: Weight: 131 lb : : Gender: Female BSA: 1.6 m2 : :: 1940 Age: 83 yrs BP: 155/90 mmHg: :Reason For Study: VSD : :Ordering Physician: NATE, : :ALEXANDER Performed By: Sabra Lawson : :Referring: ALEXANDER SULLIVAN : + + Interpretation Summary Normal sinus rhythm. 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 EF is 55-60%. Stage I diastolic dysfunction. Severe LA enlargement and mild RA enlargement. Mild mitral annular calcification. Otherwise no significant valvular abnormalities. Compared to prior echo 12/12/2022 no significant changes have occurred. Procedure: A two-dimensional transthoracic echocardiogram with color flow and Doppler was performed. The study quality was technically adequate. Comparison is made with the echocardiogram of 12/12/2022. The patient was in sinus rhythm with heart rates between 60-68 bpm during the exam. Left Ventricle: Proximal septal thickening is noted. The left ventricle is normal in size. A muscular ventricular septal defect is present. The ejection fraction is estimated to be 55-60%. Right Ventricle: The right ventricle is normal in size and function. Atria: The left atrium is severely dilated. The right atrium is mildly dilated. There is no Doppler evidence for an interatrial shunt. Mitral Valve: There is moderate mitral annular calcification. The mitral valve chordae are thickened and/or calcified. The mitral valve mean gradient is 2.0 mmHg. There is mild mitral regurgitation. Aortic Valve: The aortic valve is trileaflet. The aortic valve opens well. The aortic valve is slightly calcified. There is mild aortic valve sclerosis. There is no aortic valve stenosis. No aortic regurgitation is present. Tricuspid Valve: The tricuspid valve leaflets are thin and pliable. There is mild tricuspid regurgitation. The right ventricular systolic pressure is estimated to be at least 21 mmHg based on an estimated right atrial pressure of 3 mm Hg. Pulmonic Valve: The pulmonic valve is not well seen, but is grossly normal. There is no pulmonic valvular regurgitation. Great Vessels: The aortic root is normal size. The dimensions of the ascending aorta are normal. The IVC is of normal diameter and collapses greater than 50% with a sniff. This suggests a low right atrial pressure of 3 mm Hg. Pericardium/ Pleura There is no pericardial effusion. There is no pleural effusion. MMode/2D Measurements & Calculations LVIDd: 3.6 cm LVOT diam: 2.1 cm LVIDs: 2.5 cm Ao root diam: 3.3 cm FS: 29.8 % asc Aorta Diam: 3.3 cm IVSd: 1.3 cm Ao Arch Diam (Prox Trans): 2.9 cm LVPWd: 0.95 cm LV zavala. diameter/BSA (cm/m^2): 2.2 LV sys. diameter/BSA (cm/m^2): 1.6 LA A2 area: 25.7 cm2 RA long axis: 6.4 cm LA A4 area: 23.1 cm2 RA area: 20.7 cm2 LA length (vol): 5.8 cm RA vol: 56.6 ml LA vol: 86.3 ml RA : 35.0 ml/m2 LA vol index: 53.4 ml/m2 IVC diam: 1.2 cm RVD1 (basal): 3.5 cm RVD2 (mid): 3.4 cm TAPSE: 1.8 cm Doppler Measurements & Calculations Ao V2 max: 150.8 cm/sec LVOT Max Benjamin: 150.4 cm/sec Ao V2 mean: 112.7 cm/sec LV V1 max P.4 mmHg Ao max P.1 mmHg LV V1 VTI: 30.4 cm Ao mean P.4 mmHg ANNA(I,D): 3.0 cm2 Ao V2 VTI: 35.4 cm ANNA(V,D): 3.5 cm2 sev ratio: 0.86 ANNA indexed to BSA (cm^2/m^2): 1.9 MV E max benjamin: 78.2 cm/sec TR max benjamin: 212.8 cm/sec MV A max benjamin: 109.4 cm/sec TR max P.1 mmHg MV E/A: 0.71 PA V2 max: 95.2 cm/sec Med Peak E' Benjamin: 3.0 cm/sec PA V2 mean: 66.3 cm/sec E/E' med: 25.6 PA mean P.9 mmHg Lat Peak E' Benjamin: 5.5 cm/sec PA pr(Accel): 28.9 mmHg E/E' lat: 14.2 E/e' average: 19.9 MV dec time: 0.33 sec MVA(VTI): 2.9 cm2 MV V2 mean: 66.9 cm/sec SV(LVOT): 106.0 ml MV mean P.0 mmHg MV V2 VTI: 36.1 cm Electronically signed by: Alexander Sullivan M.D. on Reading Physician:05/18/2024 05:18 AM
== END ==
PROVIDERS: Family Provider Internal Medicine; PCP Student in an Organized Health Care Education/Training Program; Referring Provider Internal Medicine; Visit Provider Internal Medicine
DX: Q21.0 Ventricular septal defect (principal); I08.3 Combined rheumatic disorders of mitral, aortic and tricuspid valves
CPT/HCPCS: 93306

== ENCOUNTER 2024-06-14 13:45 | Outpatient (RCR) | payer MEDICARE, SELFPAY ==
[2018-11-30 09:07] VITALS: BMI 22.4
--- NOTE | 2024-04-19 16:52 | PT.OIE ---
Current Diagnoses Rectocele (04/19/24) Pelvic muscle wasting (04/19/24) Past Medical History (Last Updated 06/18/23 @ 13:33 by Constanza Chase DO) Abrasion of right hand History of small bowel obstruction (~2017) HTN (hypertension) Serous otitis media Takotsubo cardiomyopathy Unspecified abnormal finding in specimens from other organs, systems and tissues UTI (urinary tract infection) Past Surgical History (Last Reviewed 09/08/22 @ 11:48 by Sadiq Amador DO) History of cataract removal with insertion of prosthetic lens History of myomectomy (~1986) Status post gastric banding (~2008) Status post tubal ligation Visit Care Team Role Provider Type Ginny Kelly PA-C Primary Care Provider Physician Burner Technician Specialty: Medical Address: [address] [place] [address], [id number] Email: [email or web address] Maxim Gregory MD Family Provider Physician Specialty: Internal Medicine Address: [address] [place] [address] Email: [email or web address] Elsy Valenzuela MD Attending Provider Physician Referring Provider Specialty: Gynecology BANANA EXPERT Obstetrics Address: [address] [place] [address], [id number] Email: [email or web address] Physical Therapy Initial Evaluation PT-OP-A Visit Information Start: 04/19/24 09:37 Freq: Status: Active Protocol: Document 04/19/24 09:45 [facility] (Rec: 04/19/24 10:05 [facility] [id number]) Out-Patient Physical Therapy Visit Information Visit Information Visit Type Initial Evaluation Visit Start Time 09:45 Visit Stop Time 10:30 Visit Number 1 Evaluation Information Evaluation Date 04/19/24 PT-OP-B Current Condition Start: 04/19/24 09:37 Freq: Status: Active Protocol: Document 04/19/24 09:45 [facility] (Rec: 04/19/24 10:05 [facility] [id number]) Current Condition History of Current Condition Onset Date Symptoms began in the last 6 weeks. Current Complaints rectocele with vaginal pressure History of Current Condition pt notes she has a history of a blocked bowel 3 times. Her last time in the hospital was in 2022. SHe notes she is trying to be really careful with fiber and is taking senna and miralax. She is not drinking as much water as she could. She is still having hard bowels and she is having to push. She is getting in approx 45 ounces per day. She does have a history of uterine fibroids. She has a history of 4 pregnancies and 3 vaginal deliveries. PT-OP-C Subjective Start: 04/19/24 09:37 Freq: Status: Active Protocol: Document 04/19/24 09:45 [facility] (Rec: 04/19/24 16:12 [facility] [id number]) Patient Questionnaires Pelvic Pain and Urgency/Frequency Patient Symptom Scale Pelvic Pain Score 12 PT-OP-I Pelvic Floor Start: 04/19/24 09:37 Freq: Status: Active Protocol: Document 04/19/24 09:45 [facility] (Rec: 04/19/24 10:44 [facility] [id number]) Pelvic Floor Assessment Urine Pelvic Floor Surgery No Other Urinary Symptoms pelvic pressure and heaviness, chronic constipation Pelvic Clock Pelvic Clock 12-3 Atrophy Pelvic Clock 3-6 Atrophy Pelvic Clock 6-9 Atrophy Pelvic Clock 9-12 Atrophy Pelvic Clock Other left lateral wall weakness as compared to the right side Prolapse Rectocele Grade 3 Prolapse Comments 2-3rd degree rectocele with valsalva Contraction Ability Voluntary Contraction Weak Voluntary Relaxation Weak Manual Muscle Testing Left 1 Manual Muscle Testing Right 2 Manual Muscle Testing Anterior 2 Manual Muscle Testing Posterior 2 Muscle Endurance (Seconds) 6 PT-OP-Q Treatments Start: 04/19/24 09:37 Freq: Status: Active Protocol: Document 04/19/24 09:45 [facility] (Rec: 04/19/24 10:44 [facility] [id number]) Therapeutic Exercises Supine Exercises pelvic floor long holds with adductor assist Reps/Minutes 10 reps holding 10 seconds and relaxing 10 seconds Self-Care/Home Management Treatment Education Patient Education Home Exercise Program Other Education ILU self massage squatty cristina delgadillo PT-OP-T Assessment and Plan Start: 04/19/24 09:37 Freq: Status: Active Protocol: Document 04/19/24 09:45 [facility] (Rec: 04/19/24 10:05 [facility] [id number]) Physical Therapy Assessment Rehab Potential Rehabilitation Potential Good Evaluation Complexity Number of Personal Factors/Comorbidities 1-2 Number of Body Systems Impaired 3 Clinical Presentation at Evaluation Evolving Impairments Impairments Activity Tolerance,Functional Activities,Pain,Soft Tissue Mobility,Strength,Tone Goals 3 Impairment Rectocele with complaints of pelvic pressure and heaviness Teacher Of The Sight Impaired Goal (LTG) Edna reports overall decreased c/o pelvic pressure and heaviness LTG Duration 8 weeks+ 2 Impairment Decreased endurance of the pelvic floor Short Term Goal (STG) Edna is able to sustain a pelvic floor contraction in supine x 10 seconds STG Duration 4 weeks [facility] Goal (LTG) Edna is able to sustain a pelvic floor contraction in sitting x 5 seconds or better LTG Duration 8 weeks 1 Impairment pelvic floor weakness Short Term Goal (STG) Edna is educated on pelvic floor strengthening exercises STG Duration 4 weeks [facility] Goal (LTG) Edna presents with improved strength of the pelvic floor to provide improve support for the pelvic organs LTG Duration 8 weeks Assessment Summary Assessment Edna is a 83 year old female who presents to PT with chief complaint of pelvic pressure and heaviness with rectocele. She reports her symptoms became present approx 6 weeks ago. She has a history of bowel blockage x 3. She reports she feels she isn't able to have a bowel movement without straining. She typically is in [place] over the winter and walks for exercise but this year she sold her place in [place] and has been here and has not felt motivated to walk for exercise with the weather. We did talk today about walking on a treadmill as the exercise also helps stimulate bowel movements. With exam today Edna is able to tighten all granados of the levator ani and tests 2/5 MMT with the exception of the left wall which is 1/5 MMT. She presents with decreased endurance of the pelvic floor. A 2nd - 3rd degree rectocele is present with valsalva. Edna reports with orgasm she feels as if she bears down and can feel pelvic pressure which makes her nervous to have a orgasm at this time. We discussed water intake and she reports she could do better with her water intake. She was educated on the use of a squatty potty and would benefit from ILU abdominal massage as well as splinting at the perineum with bowel movements. She is scheduled for rectocele repair at the end of April however she notes she would like to try PT and strengthening first prior to surgery. Edna is a good candidate for pelvic floor PT Physical Therapy Plan Frequency and Duration Frequency of Treatment 1x/Week Duration of treatment (weeks) 8 Plan of Care Start Date 04/19/24 Plan of Care End Date 06/14/24 Therapeutic Interventions Therapeutic Interventions Home Exercise Program, Neuromuscular Re-education, Patient/Caregiver Education, Self-Care/Home Management, Therapeutic Exercises Modalities Biofeedback Next Visit Focus/Plan Next Note Type Treatment Note Next Visit Plan pelvic floor strength and endurance training, education on splinting at the perineum for bowl movements and ILU self massage
--- NOTE | 2024-04-19 16:52 | PT.OPPOC ---
Physical, Occupational & Speech Therapy At [facility] Current Diagnoses Rectocele (04/19/24) Pelvic muscle wasting (04/19/24) Visit Care Team Role Provider Type Ginny Kelly PA-C Primary Care Provider Physician Apprentice Instrument Technician Specialty: Medical Address: [address] [place] [address], [address] Email: [email or web address] Maxim Gregory MD Family Provider Physician Specialty: Internal Medicine Address: [address] [place] [address], [address] Email: [email or web address] Elsy Valenzuela MD Attending Provider Physician Referring Provider Specialty: Gynecology TRACTOR OPERATOR Obstetrics Address: [address] [place] [address], [address] Email: [email or web address] Plan Of Care PT-OP-B Current Condition Start: 04/19/24 09:37 Freq: Status: Active Protocol: Document 04/19/24 09:45 [facility] (Rec: 04/19/24 10:05 [facility] [id number]) Current Condition History of Current Condition Onset Date Symptoms began in the last 6 weeks. Current Complaints rectocele with vaginal pressure History of Current Condition pt notes she has a history of a blocked bowel 3 times. Her last time in the hospital was in 2022. SHe notes she is trying to be really careful with fiber and is taking senna and miralax. She is not drinking as much water as she could. She is still having hard bowels and she is having to push. She is getting in approx 45 ounces per day. She does have a history of uterine fibroids. She has a history of 4 pregnancies and 3 vaginal deliveries. PT-OP-T Assessment and Plan Start: 04/19/24 09:37 Freq: Status: Active Protocol: Document 04/19/24 09:45 [facility] (Rec: 04/19/24 10:05 [facility] [id number]) Physical Therapy Assessment Rehab Potential Rehabilitation Potential Good Evaluation Complexity Number of Personal Factors/Comorbidities 1-2 Number of Body Systems Impaired 3 Clinical Presentation at Evaluation Evolving Impairments Impairments Activity Tolerance,Functional Activities,Pain,Soft Tissue Mobility,Strength,Tone Goals 3 Impairment Rectocele with complaints of pelvic pressure and heaviness Insurance Commissioner Goal (LTG) Edna reports overall decreased c/o pelvic pressure and heaviness LTG Duration 8 weeks+ 2 Impairment Decreased endurance of the pelvic floor Short Term Goal (STG) Edna is able to sustain a pelvic floor contraction in supine x 10 seconds STG Duration 4 weeks Insurance Commissioner Goal (LTG) Edna is able to sustain a pelvic floor contraction in sitting x 5 seconds or better LTG Duration 8 weeks 1 Impairment pelvic floor weakness Short Term Goal (STG) Edna is educated on pelvic floor strengthening exercises STG Duration 4 weeks Insurance Commissioner Goal (LTG) Edna presents with improved strength of the pelvic floor to provide improve support for the pelvic organs LTG Duration 8 weeks Assessment Summary Assessment Edna is a 83 year old female who presents to PT with chief complaint of pelvic pressure and heaviness with rectocele. She reports her symptoms became present approx 6 weeks ago. She has a history of bowel blockage x 3. She reports she feels she isn't able to have a bowel movement without straining. She typically is in [place] over the winter and walks for exercise but this year she sold her place in [place] and has been here and has not felt motivated to walk for exercise with the weather. We did talk today about walking on a treadmill as the exercise also helps stimulate bowel movements. With exam today Edna is able to tighten all granados of the levator ani and tests 2/5 MMT with the exception of the left wall which is 1/5 MMT. She presents with decreased endurance of the pelvic floor. A 2nd - 3rd degree rectocele is present with valsalva. Edna reports with orgasm she feels as if she bears down and can feel pelvic pressure which makes her nervous to have a orgasm at this time. We discussed water intake and she reports she could do better with her water intake. She was educated on the use of a squatty potty and would benefit from ILU abdominal massage as well as splinting at the perineum with bowel movements. She is scheduled for rectocele repair at the end of April however she notes she would like to try PT and strengthening first prior to surgery. Edna is a good candidate for pelvic floor PT Physical Therapy Plan Frequency and Duration Frequency of Treatment 1x/Week Duration of treatment (weeks) 8 Plan of Care Start Date 04/19/24 Plan of Care End Date 06/14/24 Therapeutic Interventions Therapeutic Interventions Home Exercise Program, Neuromuscular Re-education, Patient/Caregiver Education, Self-Care/Home Management, Therapeutic Exercises Modalities Biofeedback Next Visit Focus/Plan Next Note Type Treatment Note Next Visit Plan pelvic floor strength and endurance training, education on splinting at the perineum for bowl movements and ILU self massage Plan of Care Dates Plan of Care Start Date 04/19/24 Plan of Care End Date 06/14/24 Electronically Signed by: Lupe Quinones, PT 04/19/24 [id number] If you are in agreement with this Plan of Care, please return a signed and dated copy. I have reviewed this Plan of Care and certify that the skilled therapy services above are required to meet the patient?s needs. Physician Signature Date Printed Name and Credentials Clinical Instructor Signature Printed Name and Credentials
--- NOTE | 2024-05-04 11:46 | PT.OTN ---
Current Diagnoses Rectocele (05/04/24) Pelvic muscle wasting (05/04/24) Physical Therapy Treatment Note PT-OP-A Visit Information Start: 04/19/24 09:37 Freq: Status: Active Protocol: Document 05/04/24 09:48 [facility] (Rec: 05/04/24 10:49 [facility] [id number]) Out-Patient Physical Therapy Visit Information Visit Information Visit Type Treatment Note Visit Start Time 09:50 Visit Stop Time 10:30 Visit Number 2 Evaluation Information Evaluation Date 04/19/24 PT-OP-B Current Condition Start: 04/19/24 09:37 Freq: Status: Active Protocol: Document 05/04/24 09:48 [facility] (Rec: 05/04/24 10:49 [facility] [id number]) Current Condition History of Current Condition Onset Date Symptoms began in the last 6 weeks. Current Complaints rectocele with vaginal pressure History of Current Condition pt notes she has a history of a blocked bowel 3 times. Her last time in the hospital was in 2022. SHe notes she is trying to be really careful with fiber and is taking senna and miralax. She is not drinking as much water as she could. She is still having hard bowels and she is having to push. She is getting in approx 45 ounces per day. She does have a history of uterine fibroids. She has a history of 4 pregnancies and 3 vaginal deliveries. PT-OP-C Subjective Start: 04/19/24 09:37 Freq: Status: Active Protocol: Document 05/04/24 09:48 [facility] (Rec: 05/04/24 10:49 [facility] [id number]) OP-PT Subjective Patient Comments Patient Comments pt got a ball and has been doing her exercises no complaints of pelvic pressure this week she has been better at using the estrogen cream as well. Patient Reported Progress Improving PT-OP-I Pelvic Floor Start: 04/19/24 09:37 Freq: Status: Active Protocol: Document 04/19/24 09:45 [facility] (Rec: 04/19/24 10:44 [facility] [id number]) Pelvic Floor Assessment Urine Pelvic Floor Surgery No Other Urinary Symptoms pelvic pressure and heaviness, chronic constipation Pelvic Clock Pelvic Clock 12-3 Atrophy Pelvic Clock 3-6 Atrophy Pelvic Clock 6-9 Atrophy Pelvic Clock 9-12 Atrophy Pelvic Clock Other left lateral wall weakness as compared to the right side Prolapse Rectocele Grade 3 Prolapse Comments 2-3rd degree rectocele with valsalva Contraction Ability Voluntary Contraction Weak Voluntary Relaxation Weak Manual Muscle Testing Left 1 Manual Muscle Testing Right 2 Manual Muscle Testing Anterior 2 Manual Muscle Testing Posterior 2 Muscle Endurance (Seconds) 6 PT-OP-Q Treatments Start: 04/19/24 09:37 Freq: Status: Active Protocol: Document 05/04/24 09:48 [facility] (Rec: 05/04/24 10:49 [facility] [id number]) Therapeutic Exercises Supine Exercises hooklying clam shells with theraband Reps/Minutes 3 x 10 reps elvic floor long holds Supine Exercise Name average 7.3 and max is 13.9 Reps/Minutes 10 reps holding 10 seconds and relaxing 10 sec pelvic floor long holds with adductor assist Supine Exercise Name avearge 8.5 and max 17 Reps/Minutes 10 reps holding 10 seconds and relaxing 10 seconds PT-OP-T Assessment and Plan Start: 04/19/24 09:37 Freq: Status: Active Protocol: Document 05/04/24 09:48 [facility] (Rec: 05/04/24 10:49 [facility] [id number]) Physical Therapy Assessment Assessment Summary Assessment Time was spent today with EMG biofeedback looking at resting tone of the pelvic floor as well as pts ability to sustain a pelvic floor contraction. Edna was able to isolate her pelvic floor today where as she wasn't able to last week. She does do better with adductor assist as this helps her endurance. I added in hooklying clam shells as well for hip ER strength and she tolerated this well Physical Therapy Plan Frequency and Duration Frequency of Treatment 1x/Week Duration of treatment (weeks) 8 Plan of Care Start Date 04/19/24 Plan of Care End Date 06/14/24 Therapeutic Interventions Therapeutic Interventions Home Exercise Program, Neuromuscular Re-education, Patient/Caregiver Education, Self-Care/Home Management, Therapeutic Exercises Modalities Biofeedback Next Visit Focus/Plan Next Note Type Treatment Note Next Visit Plan continue working on pelvic floor endurance training and review new hip exercise. ILU massage over the abdomen
--- NOTE | 2024-05-11 12:50 | PT.OTN ---
Current Diagnoses Rectocele (05/11/24) Pelvic muscle wasting (05/11/24) Physical Therapy Treatment Note PT-OP-A Visit Information Start: 04/19/24 09:37 Freq: Status: Active Protocol: Document 05/11/24 10:47 [facility] (Rec: 05/11/24 11:36 [facility] [id number]) Out-Patient Physical Therapy Visit Information Visit Information Visit Type Treatment Note Visit Start Time 10:47 Visit Stop Time 11:30 Visit Number 3 PT-OP-B Current Condition Start: 04/19/24 09:37 Freq: Status: Active Protocol: Document 05/04/24 09:48 [facility] (Rec: 05/04/24 10:49 [facility] [id number]) Current Condition History of Current Condition Onset Date Symptoms began in the last 6 weeks. Current Complaints rectocele with vaginal pressure History of Current Condition pt notes she has a history of a blocked bowel 3 times. Her last time in the hospital was in 2022. SHe notes she is trying to be really careful with fiber and is taking senna and miralax. She is not drinking as much water as she could. She is still having hard bowels and she is having to push. She is getting in approx 45 ounces per day. She does have a history of uterine fibroids. She has a history of 4 pregnancies and 3 vaginal deliveries. PT-OP-C Subjective Start: 04/19/24 09:37 Freq: Status: Active Protocol: Document 05/11/24 10:47 [facility] (Rec: 05/11/24 11:36 [facility] [id number]) OP-PT Subjective Patient Comments Patient Comments pt reports she hasn't been pushing for bowel movements Things are feeling good this week and no complaints ofpelvic pressure. SHe has been really using her estrogen cream PT-OP-I Pelvic Floor Start: 04/19/24 09:37 Freq: Status: Active Protocol: Document 04/19/24 09:45 [facility] (Rec: 04/19/24 10:44 [facility] [id number]) Pelvic Floor Assessment Urine Pelvic Floor Surgery No Other Urinary Symptoms pelvic pressure and heaviness, chronic constipation Pelvic Clock Pelvic Clock 12-3 Atrophy Pelvic Clock 3-6 Atrophy Pelvic Clock 6-9 Atrophy Pelvic Clock 9-12 Atrophy Pelvic Clock Other left lateral wall weakness as compared to the right side Prolapse Rectocele Grade 3 Prolapse Comments 2-3rd degree rectocele with valsalva Contraction Ability Voluntary Contraction Weak Voluntary Relaxation Weak Manual Muscle Testing Left 1 Manual Muscle Testing Right 2 Manual Muscle Testing Anterior 2 Manual Muscle Testing Posterior 2 Muscle Endurance (Seconds) 6 PT-OP-Q Treatments Start: 04/19/24 09:37 Freq: Status: Active Protocol: Document 05/11/24 10:47 [facility] (Rec: 05/11/24 11:36 [facility] [id number]) Therapeutic Exercises Supine Exercises bridges Reps/Minutes x 10 reps hooklying clam shells with theraband Reps/Minutes 3 x 10 reps elvic floor long holds Supine Exercise Name average 9.7 and max 15 Reps/Minutes 10 reps holding 10 seconds and relaxing 10 sec pelvic floor long holds with adductor assist Supine Exercise Name average 11 and max of 22.7 Reps/Minutes 10 reps holding 10 seconds and relaxing 10 seconds Manual Therapy Treatment Soft Tissue Mobilization ILU massage over the abdomen Mobilization Type Myofascial Release Comments pt has been instructed and is feeling good with ILU massage PT-OP-T Assessment and Plan Start: 04/19/24 09:37 Freq: Status: Active Protocol: Document 05/11/24 12:46 [facility] (Rec: 05/11/24 12:49 [facility] [id number]) Physical Therapy Assessment Goals 3 Impairment Rectocele with complaints of pelvic pressure and heaviness Rework Operator Goal (LTG) Edna reports overall decreased c/o pelvic pressure and heaviness LTG Duration 8 weeks+ 2 Impairment Decreased endurance of the pelvic floor Short Term Goal (STG) Edna is able to sustain a pelvic floor contraction in supine x 10 seconds STG Duration 4 weeks Assisted Goal (LTG) Edna is able to sustain a pelvic floor contraction in sitting x 5 seconds or better LTG Duration 8 weeks 1 Impairment pelvic floor weakness Short Term Goal (STG) Edna is educated on pelvic floor strengthening exercises STG Duration 4 weeks Rework Operator Goal (LTG) Edna presents with improved strength of the pelvic floor to provide improve support for the pelvic organs LTG Duration 8 weeks Assessment Summary Assessment Edna is doing better overall and her complaints of pelvic pressure and heaviness have decreased. She is more aware now of when she is pressing down creating pelvic pressure and she has been careful to keep her bowels regular. Strength is improving and I added in bridges today to HEP Physical Therapy Plan Frequency and Duration Frequency of Treatment 1x/Week Duration of treatment (weeks) 8 Plan of Care Start Date 04/19/24 Plan of Care End Date 06/14/24 Therapeutic Interventions Therapeutic Interventions Home Exercise Program, Neuromuscular Re-education, Patient/Caregiver Education, Self-Care/Home Management, Therapeutic Exercises Modalities Biofeedback Next Visit Focus/Plan Next Note Type Treatment Note Next Visit Plan continue working on pelvic floor endurance training and review new hip exercise. ILU massage over the abdomen
--- NOTE | 2024-05-26 17:18 | PT.OTN ---
Current Diagnoses Rectocele (05/26/24) Pelvic muscle wasting (05/26/24) Physical Therapy Treatment Note PT-OP-A Visit Information Start: 04/19/24 09:37 Freq: Status: Active Protocol: Document 05/26/24 08:17 [facility] (Rec: 05/26/24 09:02 [facility] [id number]) Out-Patient Physical Therapy Visit Information Visit Information Visit Type Treatment Note Visit Start Time 08:15 Visit Stop Time 09:00 Visit Number 4 PT-OP-B Current Condition Start: 04/19/24 09:37 Freq: Status: Active Protocol: Document 05/04/24 09:48 [facility] (Rec: 05/04/24 10:49 [facility] [id number]) Current Condition History of Current Condition Onset Date Symptoms began in the last 6 weeks. Current Complaints rectocele with vaginal pressure History of Current Condition pt notes she has a history of a blocked bowel 3 times. Her last time in the hospital was in 2022. SHe notes she is trying to be really careful with fiber and is taking senna and miralax. She is not drinking as much water as she could. She is still having hard bowels and she is having to push. She is getting in approx 45 ounces per day. She does have a history of uterine fibroids. She has a history of 4 pregnancies and 3 vaginal deliveries. PT-OP-C Subjective Start: 04/19/24 09:37 Freq: Status: Active Protocol: Document 05/26/24 08:17 [facility] (Rec: 05/26/24 09:02 [facility] [id number]) OP-PT Subjective Patient Comments Patient Comments pt notes she is not feeling any pelvic pressure or heaviness and symptoms are better Patient Reported Progress Improving PT-OP-I Pelvic Floor Start: 04/19/24 09:37 Freq: Status: Active Protocol: Document 04/19/24 09:45 [facility] (Rec: 04/19/24 10:44 [facility] [id number]) Pelvic Floor Assessment Urine Pelvic Floor Surgery No Other Urinary Symptoms pelvic pressure and heaviness, chronic constipation Pelvic Clock Pelvic Clock 12-3 Atrophy Pelvic Clock 3-6 Atrophy Pelvic Clock 6-9 Atrophy Pelvic Clock 9-12 Atrophy Pelvic Clock Other left lateral wall weakness as compared to the right side Prolapse Rectocele Grade 3 Prolapse Comments 2-3rd degree rectocele with valsalva Contraction Ability Voluntary Contraction Weak Voluntary Relaxation Weak Manual Muscle Testing Left 1 Manual Muscle Testing Right 2 Manual Muscle Testing Anterior 2 Manual Muscle Testing Posterior 2 Muscle Endurance (Seconds) 6 PT-OP-Q Treatments Start: 04/19/24 09:37 Freq: Status: Active Protocol: Document 05/26/24 08:17 [facility] (Rec: 05/26/24 09:02 [facility] [id number]) Therapeutic Exercises Supine Exercises bridges Reps/Minutes x 10 reps hooklying clam shells with theraband Reps/Minutes 3 x 10 reps elvic floor long holds Supine Exercise Name average 11.0 max of 34.6 Reps/Minutes 10 reps holding 10 seconds and relaxing 10 sec pelvic floor long holds with adductor assist Supine Exercise Name 13.7 average 30.6 Reps/Minutes 10 reps holding 10 seconds and relaxing 10 seconds PT-OP-T Assessment and Plan Start: 04/19/24 09:37 Freq: Status: Active Protocol: Document 05/26/24 08:17 [facility] (Rec: 05/26/24 09:02 [facility] [id number]) Physical Therapy Assessment Assessment Summary Assessment Edna is showing great overall progress and her average on EMG biofeeback is improving overall. Physical Therapy Plan Frequency and Duration Frequency of Treatment 1x/Week Duration of treatment (weeks) 8 Plan of Care Start Date 04/19/24 Plan of Care End Date 06/14/24 Therapeutic Interventions Therapeutic Interventions Home Exercise Program, Neuromuscular Re-education, Patient/Caregiver Education, Self-Care/Home Management, Therapeutic Exercises Modalities Biofeedback Next Visit Focus/Plan Next Note Type Treatment Note Next Visit Plan continue working on pelvic floor endurance training and review new hip exercise. Review ILU massage over the abdominal wall
--- NOTE | 2024-05-31 11:28 | PT.OTN ---
Current Diagnoses Rectocele (05/31/24) Pelvic muscle wasting (05/31/24) Physical Therapy Treatment Note PT-OP-A Visit Information Start: 04/19/24 09:37 Freq: Status: Active Protocol: Document 05/31/24 10:50 [facility] (Rec: 05/31/24 11:35 SP [id number]) Out-Patient Physical Therapy Visit Information Visit Information Visit Type Treatment Note Visit Note pt 5 min late Visit Start Time 10:50 Visit Stop Time 11:28 Visit Number 5 Number of REPORTING DEVELOPER Visits 1 Evaluation Information Evaluation Date 04/19/24 PT-OP-B Current Condition Start: 04/19/24 09:37 Freq: Status: Active Protocol: Document 05/04/24 09:48 [facility] (Rec: 05/04/24 10:49 [facility] [id number]) Current Condition History of Current Condition Onset Date Symptoms began in the last 6 weeks. Current Complaints rectocele with vaginal pressure History of Current Condition pt notes she has a history of a blocked bowel 3 times. Her last time in the hospital was in 2022. SHe notes she is trying to be really careful with fiber and is taking senna and miralax. She is not drinking as much water as she could. She is still having hard bowels and she is having to push. She is getting in approx 45 ounces per day. She does have a history of uterine fibroids. She has a history of 4 pregnancies and 3 vaginal deliveries. PT-OP-C Subjective Start: 04/19/24 09:37 Freq: Status: Active Protocol: Document 05/31/24 10:50 SP (Rec: 05/31/24 11:35 SP [id number]) OP-PT Subjective Patient Comments Patient Comments Pt reports performs her HEP not daily and mostly sitting in the car. She forgot her sensor today. PT-OP-I Pelvic Floor Start: 04/19/24 09:37 Freq: Status: Active Protocol: Document 04/19/24 09:45 [facility] (Rec: 04/19/24 10:44 [facility] [id number]) Pelvic Floor Assessment Urine Pelvic Floor Surgery No Other Urinary Symptoms pelvic pressure and heaviness, chronic constipation Pelvic Clock Pelvic Clock 12-3 Atrophy Pelvic Clock 3-6 Atrophy Pelvic Clock 6-9 Atrophy Pelvic Clock 9-12 Atrophy Pelvic Clock Other left lateral wall weakness as compared to the right side Prolapse Rectocele Grade 3 Prolapse Comments 2-3rd degree rectocele with valsalva Contraction Ability Voluntary Contraction Weak Voluntary Relaxation Weak Manual Muscle Testing Left 1 Manual Muscle Testing Right 2 Manual Muscle Testing Anterior 2 Manual Muscle Testing Posterior 2 Muscle Endurance (Seconds) 6 PT-OP-Q Treatments Start: 04/19/24 09:37 Freq: Status: Active Protocol: Document 05/31/24 10:50 SP (Rec: 05/31/24 11:35 SP [id number]) Therapeutic Exercises Supine Exercises bridges Reps/Minutes x 10 reps Comments cued not to high lift, control return start hooklying clam shells with theraband Resistance TB #2 teal Reps/Minutes 3 x 10 reps Comments cued for breath so not holding , slower eccentric return with PF engagement elvic floor long holds Supine Exercise Name no sensor 05/31/24 Reps/Minutes 10 reps holding 10 seconds and relaxing 10 sec Comments cued breath and not over recruit TA, improved with pelvic floor long holds with adductor assist Supine Exercise Name no sensor today 05/31/24 Reps/Minutes 10 reps holding 10 seconds and relaxing 10 seconds Comments Cued PF draw in with light add fac not glut Manual Therapy Treatment Consent Patient gave verbal consent for manual Yes treatment Soft Tissue Mobilization ILU massage over the abdomen Body Location 05/31/24 provided HO Mobilization Type Myofascial Release Comments pt has been instructed and is feeling good with ILU massage, provided HO for visual for carryover performance. Self-Care/Home Management Treatment Education Patient Education Home Exercise Program Other Education Reviewed ILU massage and importance of hydration for digestive progression support. PT-OP-T Assessment and Plan Start: 04/19/24 09:37 Freq: Status: Active Protocol: Document 05/31/24 10:50 SP (Rec: 05/31/24 11:35 SP [id number]) Physical Therapy Assessment Goals 3 Impairment Rectocele with complaints of pelvic pressure and heaviness Inclusion Teacher Goal (LTG) Edna reports overall decreased c/o pelvic pressure and heaviness LTG Duration 8 weeks+ 2 Impairment Decreased endurance of the pelvic floor Short Term Goal (STG) Edna is able to sustain a pelvic floor contraction in supine x 10 seconds STG Duration 4 weeks Inclusion Teacher Goal (LTG) Edna is able to sustain a pelvic floor contraction in sitting x 5 seconds or better LTG Duration 8 weeks 1 Impairment pelvic floor weakness Short Term Goal (STG) Edna is educated on pelvic floor strengthening exercises STG Duration 4 weeks Inclusion Teacher Goal (LTG) Edna presents with improved strength of the pelvic floor to provide improve support for the pelvic organs LTG Duration 8 weeks Assessment Summary Assessment REPORTING DEVELOPER reminded bringing her device for support neuromuscular feedback with strengthening. Mod cues for PF draw in during ther ex with breath and not over recruit glut and abdominals just gentle fac, tends to perform mini pelvic lift over recruitment, improved with reps and cues for breath and B hands over abdomen. Pt would benefit from continued PF with less over recruitment feedback last 2 appts scheduled. Physical Therapy Plan Frequency and Duration Frequency of Treatment 1x/Week Duration of treatment (weeks) 8 Plan of Care Start Date 04/19/24 Plan of Care End Date 06/14/24 Therapeutic Interventions Therapeutic Interventions Home Exercise Program, Neuromuscular Re-education, Patient/Caregiver Education, Self-Care/Home Management, Therapeutic Exercises Modalities Biofeedback Next Visit Focus/Plan Next Note Type Treatment Note Next Visit Plan Review ILU massage over the abdominal wall PRN. Future appts: continue working on pelvic floor endurance training and review new hip exercise.
--- NOTE | 2024-06-09 16:54 | PT.OTN ---
Current Diagnoses Rectocele (06/09/24) Pelvic muscle wasting (06/09/24) Physical Therapy Treatment Note PT-OP-A Visit Information Start: 04/19/24 09:37 Freq: Status: Active Protocol: Document 06/09/24 09:49 [facility] (Rec: 06/09/24 10:30 [facility] [id number]) Out-Patient Physical Therapy Visit Information Visit Information Visit Type Treatment Note Visit Start Time 09:50 Visit Stop Time 10:30 Visit Number 6 Number of ASSISTANT SPA MANAGER Visits 0 PT-OP-B Current Condition Start: 04/19/24 09:37 Freq: Status: Active Protocol: Document 05/04/24 09:48 [facility] (Rec: 05/04/24 10:49 [facility] [id number]) Current Condition History of Current Condition Onset Date Symptoms began in the last 6 weeks. Current Complaints rectocele with vaginal pressure History of Current Condition pt notes she has a history of a blocked bowel 3 times. Her last time in the hospital was in 2022. SHe notes she is trying to be really careful with fiber and is taking senna and miralax. She is not drinking as much water as she could. She is still having hard bowels and she is having to push. She is getting in approx 45 ounces per day. She does have a history of uterine fibroids. She has a history of 4 pregnancies and 3 vaginal deliveries. PT-OP-C Subjective Start: 04/19/24 09:37 Freq: Status: Active Protocol: Document 06/09/24 09:49 [facility] (Rec: 06/09/24 10:30 [facility] [id number]) OP-PT Subjective Patient Comments Patient Comments pt notes she had too much matza last week with passover and it constipated her and it took 2.5 days to clear out her colon. She notes she was backed up over a week and spent the whole day in the bathroom. PT-OP-I Pelvic Floor Start: 04/19/24 09:37 Freq: Status: Active Protocol: Document 04/19/24 09:45 [facility] (Rec: 04/19/24 10:44 [facility] [id number]) Pelvic Floor Assessment Urine Pelvic Floor Surgery No Other Urinary Symptoms pelvic pressure and heaviness, chronic constipation Pelvic Clock Pelvic Clock 12-3 Atrophy Pelvic Clock 3-6 Atrophy Pelvic Clock 6-9 Atrophy Pelvic Clock 9-12 Atrophy Pelvic Clock Other left lateral wall weakness as compared to the right side Prolapse Rectocele Grade 3 Prolapse Comments 2-3rd degree rectocele with valsalva Contraction Ability Voluntary Contraction Weak Voluntary Relaxation Weak Manual Muscle Testing Left 1 Manual Muscle Testing Right 2 Manual Muscle Testing Anterior 2 Manual Muscle Testing Posterior 2 Muscle Endurance (Seconds) 6 PT-OP-Q Treatments Start: 04/19/24 09:37 Freq: Status: Active Protocol: Document 06/09/24 09:49 [facility] (Rec: 06/09/24 10:30 [facility] [id number]) Therapeutic Exercises Supine Exercises quick pelvic floor contractions Reps/Minutes 10 reps 2 sec on 2 sec off hooklying clam shells with theraband Resistance TB #2 teal Reps/Minutes 3 x 10 reps Comments cued for breath so not holding , slower eccentric return with PF engagement elvic floor long holds Supine Exercise Name average 8.1 and max of 15.2 Reps/Minutes 10 reps holding 10 seconds and relaxing 10 sec pelvic floor long holds with adductor assist Supine Exercise Name average 10.4 19.8 uv Reps/Minutes 10 reps holding 10 seconds and relaxing 10 seconds PT-OP-T Assessment and Plan Start: 04/19/24 09:37 Freq: Status: Active Protocol: Document 06/09/24 09:49 [facility] (Rec: 06/09/24 10:45 [facility] [id number]) Physical Therapy Assessment Assessment Summary Assessment pt had a difficult week with constipation issues, she did not feel the prolapse worsen or feel pelvic pressure so that is a good thing. She has been doing the ILU massage . She was weaker today on EMG biofeedback but had to stop doing her pelvic floor exercises last week due to bowel upset and constipation Physical Therapy Plan Frequency and Duration Frequency of Treatment 1x/Week Duration of treatment (weeks) 8 Plan of Care Start Date 04/19/24 Plan of Care End Date 06/14/24 Therapeutic Interventions Therapeutic Interventions Home Exercise Program, Neuromuscular Re-education, Patient/Caregiver Education, Self-Care/Home Management, Therapeutic Exercises Modalities Biofeedback Next Visit Focus/Plan Next Note Type Treatment Note Next Visit Plan Review ILU massage over the abdominal wall PRN and review all pelvic floor exercises
--- NOTE | 2024-06-14 16:00 | PT.OPPOC ---
Physical, Occupational & Speech Therapy At [facility] Current Diagnoses Rectocele (06/14/24) Pelvic muscle wasting (06/14/24) Visit Care Team Role Provider Type Ginny Kelly PA-C Primary Care Provider Physician Contract Post Office Clerk Specialty: Medical Address: [address] [place] [address], [address] Email: [email or web address] Maxim Gregory MD Family Provider Physician Specialty: Internal Medicine Address: [address] [place] [address], [id number] Email: [email or web address] Elsy Valenzuela MD Attending Provider Physician Referring Provider Specialty: Gynecology HOT ROLL INSPECTOR Obstetrics Address: [address] [place] [address], [id number] Email: [email or web address] Plan Of Care PT-OP-B Current Condition Start: 04/19/24 09:37 Freq: Status: Active Protocol: Document 05/04/24 09:48 [facility] (Rec: 05/04/24 10:49 [facility] [id number]) Current Condition History of Current Condition Onset Date Symptoms began in the last 6 weeks. Current Complaints rectocele with vaginal pressure History of Current Condition pt notes she has a history of a blocked bowel 3 times. Her last time in the hospital was in 2022. SHe notes she is trying to be really careful with fiber and is taking senna and miralax. She is not drinking as much water as she could. She is still having hard bowels and she is having to push. She is getting in approx 45 ounces per day. She does have a history of uterine fibroids. She has a history of 4 pregnancies and 3 vaginal deliveries. PT-OP-T Assessment and Plan Start: 04/19/24 09:37 Freq: Status: Active Protocol: Document 06/14/24 13:45 [facility] (Rec: 06/15/24 12:37 [facility] [id number]) Physical Therapy Assessment Goals 3 Impairment Rectocele with complaints of pelvic pressure and heaviness Fdc Goal (LTG) Edna reports overall decreased c/o pelvic pressure and heaviness goal met LTG Duration 8 weeks+ 2 Impairment Decreased endurance of the pelvic floor Short Term Goal (STG) Edna is able to sustain a pelvic floor contraction in supine x 10 seconds goal met STG Duration 4 weeks Nuclear Auxiliary Operator Goal (LTG) Edna is able to sustain a pelvic floor contraction in sitting x 5 seconds or better good progress LTG Duration 8 weeks 1 Impairment pelvic floor weakness Short Term Goal (STG) Edna is educated on pelvic floor strengthening exercises goal met STG Duration 4 weeks Fdc Goal (LTG) Edna presents with improved strength of the pelvic floor to provide improve support for the pelvic organs goal met LTG Duration 8 weeks Assessment Summary Assessment Edna has done really well with pelvic floor strengthening. She is no longer c/o pelvic pressure and heaviness. She is feeling good with her HEP but would like to recheck in with PT 1 month. We will see her for one additional visit then DC Pt Physical Therapy Plan Frequency and Duration Frequency of Treatment Every Other Week Duration of treatment (weeks) 6 Plan of Care Start Date 06/14/24 Plan of Care End Date 07/26/24 Therapeutic Interventions Therapeutic Interventions Home Exercise Program, Neuromuscular Re-education, Patient/Caregiver Education, Self-Care/Home Management, Therapeutic Exercises Modalities Biofeedback Next Visit Focus/Plan Next Note Type Treatment Note Next Visit Plan Review ILU massage over the abdominal wall PRN and review all pelvic floor exercises Plan of Care Dates Plan of Care Start Date 06/14/24 Plan of Care End Date 07/26/24 Electronically Signed by: Lupe Quinones, PT 06/15/24 [id number] If you are in agreement with this Plan of Care, please return a signed and dated copy. I have reviewed this Plan of Care and certify that the skilled therapy services above are required to meet the patient?s needs. Physician Signature Date Printed Name and Credentials Clinical Instructor Signature Printed Name and Credentials
--- NOTE | 2024-06-14 16:00 | PT.OTN ---
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 Current Complaints rectocele with vaginal pressure History of Current Condition pt notes she has a history of a blocked bowel 3 times. Her last time in the hospital was in 2022. SHe notes she is trying to be really careful with fiber and is taking senna and miralax. She is not drinking as much water as she could. She is still having hard bowels and she is having to push. She is getting in approx 45 ounces per day. She does have a history of uterine fibroids. She has a history of 4 pregnancies and 3 vaginal deliveries. PT-OP-C Subjective Start: 04/19/24 09:37 Freq: Status: Active Protocol: Document 06/14/24 13:56 [facility] (Rec: 06/14/24 14:30 [facility] [id number]) OP-PT Subjective Patient Comments Patient Comments pt notes she has been fine with bowel movements and no complaints of pelvic pressure PT-OP-I Pelvic Floor Start: 04/19/24 09:37 Freq: Status: Active Protocol: Document 04/19/24 09:45 [facility] (Rec: 04/19/24 10:44 [facility] [id number]) Pelvic Floor Assessment Urine Pelvic Floor Surgery No Other Urinary Symptoms pelvic pressure and heaviness, chronic constipation Pelvic Clock Pelvic Clock 12-3 Atrophy Pelvic Clock 3-6 Atrophy Pelvic Clock 6-9 Atrophy Pelvic Clock 9-12 Atrophy Pelvic Clock Other left lateral wall weakness as compared to the right side Prolapse Rectocele Grade 3 Prolapse Comments 2-3rd degree rectocele with valsalva Contraction Ability Voluntary Contraction Weak Voluntary Relaxation Weak Manual Muscle Testing Left 1 Manual Muscle Testing Right 2 Manual Muscle Testing Anterior 2 Manual Muscle Testing Posterior 2 Muscle Endurance (Seconds) 6 PT-OP-Q Treatments Start: 04/19/24 09:37 Freq: Status: Active Protocol: Document 06/14/24 13:56 [facility] (Rec: 06/14/24 14:30 [facility] [id number]) Therapeutic Exercises Supine Exercises quick pelvic floor contractions Supine Exercise Name 17 uv Reps/Minutes 10 reps 2 sec on 2 sec off elvic floor long holds Supine Exercise Name average of 11.8 and max of 35 Reps/Minutes 10 reps holding 10 seconds and relaxing 10 sec pelvic floor long holds with adductor assist Supine Exercise Name average of 11 and max of 29.2 PT-OP-T Assessment and Plan Start: 04/19/24 09:37 Freq: Status: Active Protocol: Document 06/14/24 13:45 [facility] (Rec: 06/15/24 12:37 [facility] [id number]) Physical Therapy Assessment Goals 3 Impairment Rectocele with complaints of pelvic pressure and heaviness Spar Machine Operator Helper Goal (LTG) Edna reports overall decreased c/o pelvic pressure and heaviness goal met LTG Duration 8 weeks+ 2 Impairment Decreased endurance of the pelvic floor Short Term Goal (STG) Edna is able to sustain a pelvic floor contraction in supine x 10 seconds goal met STG Duration 4 weeks Spar Machine Operator Helper Goal (LTG) Edna is able to sustain a pelvic floor contraction in sitting x 5 seconds or better good progress LTG Duration 8 weeks 1 Impairment pelvic floor weakness Short Term Goal (STG) Edna is educated on pelvic floor strengthening exercises goal met STG Duration 4 weeks Spar Machine Operator Helper Goal (LTG) Edna presents with improved strength of the pelvic floor to provide improve support for the pelvic organs goal met LTG Duration 8 weeks Assessment Summary Assessment Edna has done really well with pelvic floor strengthening. She is no longer c/o pelvic pressure and heaviness. She is feeling good with her HEP but would like to recheck in with PT 1 month. We will see her for one additional visit then DC Pt Physical Therapy Plan Frequency and Duration Frequency of Treatment Every Other Week Duration of treatment (weeks) 6 Plan of Care Start Date 06/14/24 Plan of Care End Date 07/26/24 Therapeutic Interventions Therapeutic Interventions Home Exercise Program, Neuromuscular Re-education, Patient/Caregiver Education, Self-Care/Home Management, Therapeutic Exercises Modalities Biofeedback Next Visit Focus/Plan Next Note Type Treatment Note Next Visit Plan Review ILU massage over the abdominal wall PRN and review all pelvic floor exercises
--- NOTE | 2024-07-14 11:08 | PT-OP ANOTE ---
pt did not show up for appt, I called and she answered telling me she had left a text on our system that she was sick and needed to cx her visit. I did check in with scheduling and they had not yet checked the system yet for messages but told me they would check it and then cx her appt.
--- NOTE | 2024-08-04 17:15 | PT.OPDS ---
Current Diagnoses Rectocele (06/14/24) Pelvic muscle wasting (06/14/24) Visit Care Team Role Provider Type Ginny Kelly PA-C Primary Care Provider Physician Police Lieutenant Patrol Specialty: Medical Address: [address] [place] [address], [id number] Email: [email or web address] Maxim Gregory MD Family Provider Physician Specialty: Internal Medicine Address: [address] [place] [address], [id number] Email: [email or web address] Elsy Valenzuela MD Attending Provider Physician Referring Provider Specialty: Gynecology [employer] Obstetrics Address: [address] [place] [address], [id number] Email: [email or web address] Visit Number Visit Number 7 Discharge Summary PT-OP-B Current Condition Start: 04/19/24 09:37 Freq: Status: Active Protocol: Document 05/04/24 09:48 [facility] (Rec: 05/04/24 10:49 [facility] [id number]) Current Condition History of Current Condition Onset Date Symptoms began in the last 6 weeks. Current Complaints rectocele with vaginal pressure History of Current pt notes she has a history of a blocked bowel 3 times. Condition Her last time in the hospital was in 2022. SHe notes she is trying to be really careful with fiber and is taking senna and miralax. She is not drinking as much water as she could. She is still having hard bowels and she is having to push. She is getting in approx 45 ounces per day. She does have a history of uterine fibroids. She has a history of 4 pregnancies and 3 vaginal deliveries. PT-OP-C Subjective Start: 04/19/24 09:37 Freq: Status: Active Protocol: Document 06/14/24 13:45 [facility] (Rec: 06/14/24 14:30 [facility] [id number]) OP-PT Subjective Patient Comments Patient Comments pt notes she has been fine with bowel movements and no complaints of pelvic pressure PT-OP-I Pelvic Floor Start: 04/19/24 09:37 Freq: Status: Active Protocol: Document 04/19/24 09:45 [facility] (Rec: 04/19/24 10:44 [facility] [id number]) Pelvic Floor Assessment Urine Pelvic Floor Surgery No Other Urinary pelvic pressure and heaviness, chronic constipation Symptoms Pelvic Clock Pelvic Clock 12-3 Atrophy Pelvic Clock 3-6 Atrophy Pelvic Clock 6-9 Atrophy Pelvic Clock 9-12 Atrophy Pelvic Clock Other left lateral wall weakness as compared to the right side Prolapse Rectocele Grade 3 Prolapse Comments 2-3rd degree rectocele with valsalva Contraction Ability Voluntary Weak Contraction Voluntary Relaxation Weak Manual Muscle 1 Testing Left Manual Muscle 2 Testing Right Manual Muscle 2 Testing Anterior Manual Muscle 2 Testing Posterior Muscle Endurance ( 6 Seconds) PT-OP-T Assessment and Plan Start: 04/19/24 09:37 Freq: Status: Active Protocol: Document 08/04/24 17:14 [facility] (Rec: 08/04/24 17:15 [facility] [id number]) Physical Therapy Assessment Goals 3 Impairment Rectocele with complaints of pelvic pressure and heaviness Counterperson Goal (LTG) Edna reports overall decreased c/o pelvic pressure and heaviness goal met LTG Duration 8 weeks+ 2 Impairment Decreased endurance of the pelvic floor Short Term Goal (STG Edna is able to sustain a pelvic floor contraction in ) supine x 10 seconds goal met STG Duration 4 weeks Counterperson Goal (LTG) Edna is able to sustain a pelvic floor contraction in sitting x 5 seconds or better good progress LTG Duration 8 weeks 1 Impairment pelvic floor weakness Short Term Goal (STG Edna is educated on pelvic floor strengthening ) exercises goal met STG Duration 4 weeks Counterperson Goal (LTG) Edna presents with improved strength of the pelvic floor to provide improve support for the pelvic organs goal met LTG Duration 8 weeks Assessment Summary Assessment Edna has done really well with pelvic floor strengthening. She is no longer c/o pelvic pressure and heaviness. She is feeling good with her HEP at this time and will be D/C to a I HEP Physical Therapy Plan Discharge Physical Therapy Discharge Reasons Goals Met
== END 2024-08-05 11:02 | disposition home or self-care (01) ==
LOC: PHYS 13:45
PROVIDERS: Family Provider Internal Medicine; PCP Student in an Organized Health Care Education/Training Program; Referring Provider Obstetrics & Gynecology; Visit Provider Obstetrics & Gynecology
DX: N81.6 Rectocele (principal); N81.84 Pelvic muscle wasting
CPT/HCPCS: 97110; 97140; 97162